=== PATIENT | female | born 1980 | race Caucasian/White ===

== ENCOUNTER → 2022-04-13 14:42 | Outpatient (BNVA) | payer OTHER, SELFPAY | PROVIDERS: PCP Internal Medicine; Visit Provider Nurse Practitioner Family | DX: R20.2 Paresthesia of skin (principal) ==

== ENCOUNTER 2022-04-29 09:20 | Day surgery (SDC) | payer OTHER, SELFPAY ==
[2022-04-29] VITALS (8 sets, daily range): BP systolic 107–115; BP diastolic 55–64; PULSE 68–87; RESP 14–16; TEMP 36.9–37.1; O2SAT 98–99; BMI 31.3
--- NOTE | ~2022-04-29 | FL_ITS ---
PROCEDURE: XR LUMBAR PUNCTURE CLINICAL INFORMATION: Headaches. COMPARISON: None TECHNIQUE: Fluoroscopic-guided lumbar puncture. FINDINGS: Informed consent was obtained from the patient prior to the procedure. During this process, the procedure and potential alternatives were explained, along with the intended outcome and benefits. The risks of the procedure, as well as the risk of not doing the procedure, were discussed. The patient was given the opportunity to ask questions regarding the procedure and appeared competent to make medical decisions. A signed consent form which documents this discussion was placed in the medical record. Using sterile technique from a posterior approach a 22-gauge spinal needle was directed into the thecal space from an L3-L4 approach. There is a traumatic tap with blood within the hub of the needle. The tubes did clear over time, however, the blood in the CSF was evident on the first and then to a lesser extent within the second tube. Patient tolerated the procedure without difficulty. The opening pressure was 19 cm of water. A total of 8 mL of CSF was collected. FLUOROSCOPY TIME: 0.6 minutes DOSE AREA PRODUCT: 2.831 uGy-m2 (microgray-meter squared) FL/FL guided lumbar puncture LP IMPRESSION: Lumbar puncture as described with traumatic tap.
[2022-04-29 10:15] LABS: MANUAL DIFF FLAG NO
[2022-04-29 10:17] LABS: Basophils Percent Auto 0.5 % (0-2); Eosinophils Absolute Auto 0.1 X10*3/uL (0.0-0.4); Eosinophils Percent Auto 1.8 % (0-4); Hematocrit 35.7 % (37.0-47.0); Hemoglobin 12.1 g/dl (12.0-16.0); Imm Gran Abs Auto 0.01 X10*3/uL (0.00-0.03); Imm Gran Pct Auto 0.2 % (0.0-0.4); Lymphocytes Absolute Auto 1.9 X10*3/uL (1.2-4.9); Lymphocytes Percent Auto 32.2 % (20-40); Mean Corpuscular HGB Conc 33.9 g/dl (31.0-35.0); Mean Corpuscular Volume 88.4 fL (80.0-98.0); Monocytes Absolute Auto 0.3 X10*3/uL (0.1-1.2); Monocytes Percent Auto 4.8 % (2-11); Neutrophils Absolute Auto 3.7 x10*3/uL (2.0-8.3); Neutrophils Percent Auto 60.5 % (45-73); Platelet Count 227 X10*3/uL (160-400); Red Blood Count 4.04 X10*6/uL (4.20-5.50); Red Cell Distribution Width 12.2 % (11.0-16.0)
[2022-04-29 10:24] LABS: INTERNATIONAL NORM RATIO 0.9 (0.9-1.1); Prothrombin Time 10.3 SEC (10.0-13.1)
[2022-04-29 10:26] LABS: Partial Thromboplastin Time 26.1 SEC (26.0-36.4)
[2022-04-29] MEDS: Acetaminophen 325 MG TABLET 650 MG PO (12:53)
[2022-04-29 13:16] LABS: CSF Appearance Clear, Colorless; CSF Tube # 3
[2022-04-29 13:49] LABS: Glucose CSF 61 mg/dL; Total Protein CSF 23.5 mg/dL (15-45)
[2022-04-29 14:23] LABS: Appearance CSF HAZY; CSF Tube # 4; Color CSF COLORLESS; White Blood Cell CSF 2 MM*3
[2022-04-29 14:24] LABS: Appearance CSF CLOUDY; CSF Monos 10 %; CSF Tube # 1; Color CSF PINK; Lymphocytes CSF 40 %; Neutrophils CSF 50 %; Red Blood Cell CSF 816 MM*3
[2022-04-29 14:25] LABS: CSF Monos 6 %; Lymphocytes CSF 19 %; Neutrophils CSF 72 %; Red Blood Cell CSF 15862 MM*3; White Blood Cell CSF 5 MM*3
[2022-04-29 14:26] LABS: CSF Other Cells % 3 %
== END 2022-04-29 15:40 | disposition home or self-care (01) ==
PROVIDERS: Nurse Practitioner Family; Radiology Diagnostic Radiology; PCP Internal Medicine; Visit Provider Radiology Diagnostic Radiology
PROC: 009U3ZZ Drainage of Spinal Canal, Percutaneous Approach (ICD-10-PCS; CPT 62270; principal; 2022-04-29 11:00)
DX: G43.009 Migraine without aura, not intractable, without status migrainosus (principal); G44.209 Tension-type headache, unspecified, not intractable; R20.0 Anesthesia of skin; R20.2 Paresthesia of skin; G93.5 Compression of brain; E23.6 Other disorders of pituitary gland; R63.5 Abnormal weight gain; K21.9 Gastro-esophageal reflux disease without esophagitis; Z79.899 Other long term (current) drug therapy; Z86.16 Personal history of COVID-19; Z87.891 Personal history of nicotine dependence
CPT/HCPCS: 36415; 62328; 82945; 84157; 85025; 85610; 85730; 87015; 87070; 87205; 89051

== ENCOUNTER 2022-05-02 11:02 | Emergency (ER) | payer OTHER, SELFPAY ==
--- NOTE | 2022-05-02 11:19 | ED_ITS ---
HPI - Headache General Chief Complaint: General Medical <PAULINE Rivas - Last Filed: 05/02/22 11:25> Stated Complaint: head/neck pain <PAULINE Rivas - Last Filed: 05/02/22 11:25> Time Seen by Provider: 05/02/22 16:17 <PAULINE Rivas - Last Filed: 05/02/22 11:25> Source: patient <Bernard Fowler MD - Last Filed: 05/02/22 20:12> Mode of arrival: ambulatory <Bernard Fowler MD - Last Filed: 05/02/22 20:12> Limitations: no limitations <Bernard Fowler MD - Last Filed: 05/02/22 20:12> History of Present Illness HPI Narrative: Patient with history of migraine and tension headaches status post spinal tap on 04/29 opening pressure was 18 comes here for having headache within few hours of the spinal tap which is different than the previous headaches patient feels headache bilaterally going to the neck especially when sitting or standing within few minutes of that no photophobia sensitivity no fever or chills no cough feels stretching feeling inside the brain. Patient was given Fioricet advised to drink plenty of fluids by neurologist but headache is persistent <Bernard Fowler MD - Last Filed: 05/02/22 20:12> Related Data Home Medications: Home Medications Medication Instructions Recorded Confirmed pantoprazole 40 mg tablet,delayed 40 mg PO DAILY 02/01/22 04/13/22 release Previous Rx's Medication Instructions Recorded lpusygspld-olbmodmhzlxyw-mfvgaioq 1 - 2 tab PO Q4-6H PRN post-lumbar 04/13/22 50 mg-325 mg-40 mg tablet puncture headache 7 days #24 tabs magnesium oxide 400 mg (241.3 mg 400 mg PO BEDTIME 30 days #30 tabs 04/13/22 magnesium) tablet riboflavin (vitamin B2) 400 mg 400 mg PO DAILY 30 days #30 tabs 04/13/22 tablet topiramate 25 mg tablet See Rx Instructions PO .COMPLEX 30 04/13/22 days #120 tabs <PAULINE Rivas - Last Filed: 05/02/22 11:25> Allergies/Adverse Reactions: Allergies Allergy/AdvReac Type Severity Reaction Status Date / Time No Known Allergies [NKA] Allergy Mild NKA Verified 04/29/22 09:47 <PAULINE Rivas - Last Filed: 05/02/22 11:25> Review of Systems Review of Systems: Yes all other systems are reviewed and are negative <Bernard Fowler MD - Last Filed: 05/02/22 20:12> [facility] Past Medical History Medical History: Medical History Alopecia areata Endometriosis GERD (gastroesophageal reflux disease) IBS (irritable bowel syndrome) Microscopic hematuria <PAULINE Rivas - Last Filed: 05/02/22 11:25> Family History Family History: Family History Mother No problems noted. Father CAD (coronary artery disease) HTN (hypertension) Hyperlipidemia Family/Other Diabetes Heart disease Family/Other Heart disease CAD (coronary artery disease) Family/Other Breast cancer Ovarian cancer Cancer of uterine tube Colon cancer <PAULINE Rivas - Last Filed: 05/02/22 11:25> Social History Social History: Social History Alcohol intake: current Alcohol intake frequency: a few times a month Patient Tobacco Use Status: Former Tobacco user Quit Date: 2016 Advance Directives: No Advance Directives Information Provided: Yes <PAULINE Rivas - Last Filed: 05/02/22 11:25> Physical Exam Vital Signs: Vital Signs: Last Vital Signs Temp 96.8 F 05/02/22 14:48 Pulse 67 05/02/22 14:48 Resp 16 05/02/22 14:48 BP 107/49 L 05/02/22 14:48 Pulse Ox 100 05/02/22 14:48 O2 Del Method 05/02/22 14:48 BMI result Body Mass Index 31.3 <PAULINE Rivas - Last Filed: 05/02/22 11:25> Vital Signs: Last Vital Signs Temp 96.8 F 05/02/22 14:48 Pulse 67 05/02/22 14:48 Resp 16 05/02/22 14:48 BP 107/49 L 05/02/22 14:48 Pulse Ox 100 05/02/22 14:48 O2 Del Method 05/02/22 14:48 BMI result Body Mass Index 31.3 <Bernard Fowler MD - Last Filed: 05/02/22 20:12> Appearance: Alert. Oriented X3. moderate distres Eyes: PERRLA, No Nystagmus ENT: Pharynx normal. Oral Mucosa moist Neck: Normal inspection. Neck supple. No neck rigidity CVS: Normal heart rate and rhythm. Pulses normal. Respiratory: No respiratory distress. Equal air entry bilateral, no wheezing/rales/rhonchi Abdomen: Soft and nontender. Bowel sounds are present, Skin: Skin warm and dry. Normal skin color. Normal skin turgor. Extremities: No lower extremity edema. No calf tenderness Neuro: Oriented X 3. No motor deficit. No sensory deficit.No cerebellar signs , cranial nerves II-XII intact <Bernard Fowler MD - Last Filed: 05/02/22 20:12> Course Course Course Narrative: RME 11:20AM - 42yoF c PMHx of migraine headaches presenting to the ED c c/o of a throbbing headaches radiating to neck arm since worse today after she had an LP by Dr. Armstrong. When she lays flat the headache is worsening. Therefore she lays on her side. Reports does not feel like normal migraine headaches. Was sent here by Neurologist for blood patch. Associated lightheadedness. Denies fevers, changes in vision, paresthesias, CP, SOB, N/V, Rashes, falls or other with similar symptoms. Plan: Labs ordered along with COVID/RSV/flu swab. Vital signs are stable patient has a normal steady gait. Patient will be sent back to the waiting room to be evaluated in the ED. <PAULINE Rivas - Last Filed: 05/02/22 11:25> Medications Administered Discontinued Medications Generic Name Dose Route Start Last Admin Trade Name Freq PRN Reason Stop Dose Admin Sodium Chloride 1,000 mls @ 999 mls/hr 05/02/22 16:25 05/02/22 16:37 Ns IV 05/02/22 17:25 999 mls/hr .Q1H1M ONE Administration Ketorolac Tromethamine 30 mg 05/02/22 16:26 05/02/22 16:37 Ketorolac Tromethamine 30 Mg/Ml Vial IVPUSH 05/02/22 16:27 30 mg ONCE ONE Administration <PAULINE Rivas - Last Filed: 05/02/22 11:25> Medications Administered Discontinued Medications Generic Name Dose Route Start Last Admin Trade Name Bubba PRN Reason Stop Dose Admin Sodium Chloride 1,000 mls @ 999 mls/hr 05/02/22 16:25 05/02/22 16:37 Ns IV 05/02/22 17:25 999 mls/hr .Q1H1M ONE Administration Ketorolac Tromethamine 30 mg 05/02/22 16:26 05/02/22 16:37 Ketorolac Tromethamine 30 Mg/Ml Vial IVPUSH 05/02/22 16:27 30 mg ONCE ONE Administration <Bernard Fowler MD - Last Filed: 05/02/22 20:12> Medical Decision Making Medical Decision Making MDM Narrative: Patient feeling much better after a L of IV saline bolus and Toradol anesthesiologists came and discussed with the patient , patient would like to wait another 2 days before the blood patch patient ambulate in the ER without significant distress <Bernard Fowler MD - Last Filed: 05/02/22 20:12> Lab Data [facility] Lab Attestation statement: I reviewed the patient's lab results. <Bernard Fowler MD - Last Filed: 05/02/22 20:12> Result Diagrams: 05/02/22 12:53 05/02/22 12:53 <PAULINE Rivas - Last Filed: 05/02/22 11:25> Labs: Lab Results 05/02/22 05/02/22 05/02/22 Range/Units 12:49 12:52 12:53 WBC 6.8 (4.8-10.8) X10*3/uL RBC 4.40 (4.20-5.50) X10*6/uL Hgb 13.1 (12.0-16.0) g/dl Hct 39.1 (37.0-47.0) % MCV 88.9 (80.0-98.0) fL MCH 29.8 (27.0-33.0) pg MCHC 33.5 (31.0-35.0) g/dl RDW 12.1 (11.0-16.0) % Plt Count 252 (160-400) X10*3/uL MPV 9.9 (9.4-12.3) fL Immature Gran % (Auto) 0.1 (0.0-0.4) % Neut % (Auto) 58.2 (45-73) % Lymph % (Auto) 34.6 (20-40) % [place] % (Auto) 5.7 (2-11) % Eos % (Auto) 1.3 (0-4) % Baso % (Auto) 0.1 (0-2) % Lymph # (Auto) 2.4 (1.2-4.9) X10*3/uL [place] # (Auto) 0.4 (0.1-1.2) X10*3/uL Eos # (Auto) 0.1 (0.0-0.4) X10*3/uL Baso # (Auto) 0.0 (0.0-0.2) X10*3/uL Abs Immat Gran (auto) 0.01 (0.00-0.03) X10*3/uL Absolute Neuts (auto) 4.0 (2.0-8.3) x10*3/uL Absolute Nucleated RBC 0.000 (0.0-0.012) X10*3/uL Nucleated RBC % (auto) 0.0 (0.0-0.2) /100WBC ESR (0-20) MM/HR PT (10.0-13.1) SEC INR (0.9-1.1) Sodium (135-145) mmol/L Potassium (3.3-5.1) mmol/L Chloride (96-108) mmol/L Carbon Dioxide (22-29) mmol/L Anion Gap (12-20) BUN (9-16) mg/dL Creatinine (0.5-1.4) mg/dL Estim Creat Clear Calc Estimated GFR Random Glucose (60-115) mg/dL Calcium (8.4-10.2) mg/dL Magnesium (1.6-2.6) mg/dL Total Bilirubin (0.0-1.0) mg/dL AST (5-31) U/L ALT (0-31) U/L Alkaline Phosphatase (39-117) U/L C-Reactive Protein (< or = 0.50) mg/dL Total Protein (6.5-8.0) g/dL Albumin (3.5-5.0) g/dL Beta HCG, Quant < 2 mIU/mL Influenza Type A (PCR) NEGATIVE (Negative) Influenza Type B (PCR) NEGATIVE (Negative) RSV RNA Qual (PCR) NEGATIVE (Negative) SARS-CoV-2 RNA (RT-PCR) NEGATIVE (Negative) 05/02/22 05/02/22 05/02/22 Range/Units 12:53 12:53 12:53 WBC (4.8-10.8) X10*3/uL RBC (4.20-5.50) X10*6/uL Hgb (12.0-16.0) g/dl Hct (37.0-47.0) % MCV (80.0-98.0) fL MCH (27.0-33.0) pg MCHC (31.0-35.0) g/dl RDW (11.0-16.0) % Plt Count (160-400) X10*3/uL MPV (9.4-12.3) fL Immature Gran % (Auto) (0.0-0.4) % Neut % (Auto) (45-73) % Lymph % (Auto) (20-40) % [place] % (Auto) (2-11) % Eos % (Auto) (0-4) % Baso % (Auto) (0-2) % Lymph # (Auto) (1.2-4.9) X10*3/uL [place] # (Auto) (0.1-1.2) X10*3/uL Eos # (Auto) (0.0-0.4) X10*3/uL Baso # (Auto) (0.0-0.2) X10*3/uL Abs Immat Gran (auto) (0.00-0.03) X10*3/uL Absolute Neuts (auto) (2.0-8.3) x10*3/uL Absolute Nucleated RBC (0.0-0.012) X10*3/uL Nucleated RBC % (auto) (0.0-0.2) /100WBC ESR 8 (0-20) MM/HR PT 11.0 (10.0-13.1) SEC INR 1.0 (0.9-1.1) Sodium 141 (135-145) mmol/L Potassium 4.1 (3.3-5.1) mmol/L Chloride 110 H (96-108) mmol/L Carbon Dioxide 25 (22-29) mmol/L Anion Gap 10 L (12-20) BUN 13 (9-16) mg/dL Creatinine 0.76 (0.5-1.4) mg/dL Estim Creat Clear Calc 83.9 Estimated GFR > 60 Random Glucose 91 (60-115) mg/dL Calcium 9.0 (8.4-10.2) mg/dL Magnesium 1.9 (1.6-2.6) mg/dL Total Bilirubin 0.4 (0.0-1.0) mg/dL AST 25 (5-31) U/L ALT 28 (0-31) U/L Alkaline Phosphatase 87 (39-117) U/L C-Reactive Protein 0.20 (< or = 0.50) mg/dL Total Protein 6.9 (6.5-8.0) g/dL Albumin 3.7 (3.5-5.0) g/dL Beta HCG, Quant mIU/mL Influenza Type A (PCR) (Negative) Influenza Type B (PCR) (Negative) RSV RNA Qual (PCR) (Negative) SARS-CoV-2 RNA (RT-PCR) (Negative) <PAULINE Rivas - Last Filed: 05/02/22 11:25> Lab Results 05/02/22 05/02/22 05/02/22 Range/Units 12:49 12:52 12:53 WBC 6.8 (4.8-10.8) X10*3/uL RBC 4.40 (4.20-5.50) X10*6/uL Hgb 13.1 (12.0-16.0) g/dl Hct 39.1 (37.0-47.0) % MCV 88.9 (80.0-98.0) fL MCH 29.8 (27.0-33.0) pg MCHC 33.5 (31.0-35.0) g/dl RDW 12.1 (11.0-16.0) % Plt Count 252 (160-400) X10*3/uL MPV 9.9 (9.4-12.3) fL Immature Gran % (Auto) 0.1 (0.0-0.4) % Neut % (Auto) 58.2 (45-73) % Lymph % (Auto) 34.6 (20-40) % [place] % (Auto) 5.7 (2-11) % Eos % (Auto) 1.3 (0-4) % Baso % (Auto) 0.1 (0-2) % Lymph # (Auto) 2.4 (1.2-4.9) X10*3/uL [place] # (Auto) 0.4 (0.1-1.2) X10*3/uL Eos # (Auto) 0.1 (0.0-0.4) X10*3/uL Baso # (Auto) 0.0 (0.0-0.2) X10*3/uL Abs Immat Gran (auto) 0.01 (0.00-0.03) X10*3/uL Absolute Neuts (auto) 4.0 (2.0-8.3) x10*3/uL Absolute Nucleated RBC 0.000 (0.0-0.012) X10*3/uL Nucleated RBC % (auto) 0.0 (0.0-0.2) /100WBC ESR (0-20) MM/HR PT (10.0-13.1) SEC INR (0.9-1.1) Sodium (135-145) mmol/L Potassium (3.3-5.1) mmol/L Chloride (96-108) mmol/L Carbon Dioxide (22-29) mmol/L Anion Gap (12-20) BUN (9-16) mg/dL Creatinine (0.5-1.4) mg/dL Estim Creat Clear Calc Estimated GFR Random Glucose (60-115) mg/dL Calcium (8.4-10.2) mg/dL Magnesium (1.6-2.6) mg/dL Total Bilirubin (0.0-1.0) mg/dL AST (5-31) U/L ALT (0-31) U/L Alkaline Phosphatase (39-117) U/L C-Reactive Protein (< or = 0.50) mg/dL Total Protein (6.5-8.0) g/dL Albumin (3.5-5.0) g/dL Beta HCG, Quant < 2 mIU/mL Influenza Type A (PCR) NEGATIVE (Negative) Influenza Type B (PCR) NEGATIVE (Negative) RSV RNA Qual (PCR) NEGATIVE (Negative) SARS-CoV-2 RNA (RT-PCR) NEGATIVE (Negative) 05/02/22 05/02/22 05/02/22 Range/Units 12:53 12:53 12:53 WBC (4.8-10.8) X10*3/uL RBC (4.20-5.50) X10*6/uL Hgb (12.0-16.0) g/dl Hct (37.0-47.0) % MCV (80.0-98.0) fL MCH (27.0-33.0) pg MCHC (31.0-35.0) g/dl RDW (11.0-16.0) % Plt Count (160-400) X10*3/uL MPV (9.4-12.3) fL Immature Gran % (Auto) (0.0-0.4) % Neut % (Auto) (45-73) % Lymph % (Auto) (20-40) % [place] % (Auto) (2-11) % Eos % (Auto) (0-4) % Baso % (Auto) (0-2) % Lymph # (Auto) (1.2-4.9) X10*3/uL [place] # (Auto) (0.1-1.2) X10*3/uL Eos # (Auto) (0.0-0.4) X10*3/uL Baso # (Auto) (0.0-0.2) X10*3/uL Abs Immat Gran (auto) (0.00-0.03) X10*3/uL Absolute Neuts (auto) (2.0-8.3) x10*3/uL Absolute Nucleated RBC (0.0-0.012) X10*3/uL Nucleated RBC % (auto) (0.0-0.2) /100WBC ESR 8 (0-20) MM/HR PT 11.0 (10.0-13.1) SEC INR 1.0 (0.9-1.1) Sodium 141 (135-145) mmol/L Potassium 4.1 (3.3-5.1) mmol/L Chloride 110 H (96-108) mmol/L Carbon Dioxide 25 (22-29) mmol/L Anion Gap 10 L (12-20) BUN 13 (9-16) mg/dL Creatinine 0.76 (0.5-1.4) mg/dL Estim Creat Clear Calc 83.9 Estimated GFR > 60 Random Glucose 91 (60-115) mg/dL Calcium 9.0 (8.4-10.2) mg/dL Magnesium 1.9 (1.6-2.6) mg/dL Total Bilirubin 0.4 (0.0-1.0) mg/dL AST 25 (5-31) U/L ALT 28 (0-31) U/L Alkaline Phosphatase 87 (39-117) U/L C-Reactive Protein 0.20 (< or = 0.50) mg/dL Total Protein 6.9 (6.5-8.0) g/dL Albumin 3.7 (3.5-5.0) g/dL Beta HCG, Quant mIU/mL Influenza Type A (PCR) (Negative) Influenza Type B (PCR) (Negative) RSV RNA Qual (PCR) (Negative) SARS-CoV-2 RNA (RT-PCR) (Negative) <Bernard Fowler MD - Last Filed: 05/02/22 20:12> Discharge Plan Discharge Clinical Impression: Spinal headache <PAULINE Rivas - Last Filed: 05/02/22 11:25> Patient Disposition: Home, Self-Care <PAULINE Rivas - Last Filed: 05/02/22 11:25> Instructions: Epidural Blood Patch (DC), General Headache (ED) <PAULINE Rivas - Last Filed: 05/02/22 11:25> Additional Instructions: Drink plenty of fluids Continue to take Fioricet tablet Report to the ER if headache continues <PAULINE Rivas - Last Filed: 05/02/22 11:25> Prescriptions: No Action pantoprazole 40 mg tablet,delayed release (DR/EC) 40 mg PO DAILY magnesium oxide 400 mg (241.3 mg magnesium) tablet 400 mg PO BEDTIME 30 Days Qty: 30 6RF Rx Instructions: may hold for loose stools riboflavin (vitamin B2) 400 mg tablet 400 mg PO DAILY 30 Days Qty: 30 6RF topiramate 25 mg tablet See Rx Instructions PO .COMPLEX 30 Days Qty: 120 3RF Rx Instructions: 1 tab qhs x's 1 wk, then 2 tabs qhs x's 1 wk, then 1 tab qam and 2 tabs qhs x's 1 week, then 2 tabs bid. orally .; [id number]-dhnbzycwyrzvu-mwxx 50-325-40 mg tablet 1 - 2 tab PO Q4-6H PRN (Reason: post-lumbar puncture headache) 7 Days Qty: 24 1RF Rx Instructions: max 4 tabs per day or 8 tabs per week <PAULINE Rivas - Last Filed: 05/02/22 11:25> Stand Alone Forms: Work/School Release <PAULINE Rivas - Last Filed: 05/02/22 11:25> Interventions: ED Discharge Assessment Last Done: 05/02/22 18:17 <PAULINE Rivas - Last Filed: 05/02/22 11:25> Discharge Date/Time: 05/02/22 18:19 <PAULINE Rivas - Last Filed: 05/02/22 11:25>
[2022-05-02 11:20] VITALS: BP 132/86; PULSE 74; RESP 16; TEMP 36.4; O2SAT 100; BMI 31.3
[2022-05-02 12:57] LABS: MANUAL DIFF FLAG NO
[2022-05-02 12:58] LABS: Basophils Percent Auto 0.1 % (0-2); Eosinophils Absolute Auto 0.1 X10*3/uL (0.0-0.4); Eosinophils Percent Auto 1.3 % (0-4); Hematocrit 39.1 % (37.0-47.0); Hemoglobin 13.1 g/dl (12.0-16.0); Imm Gran Abs Auto 0.01 X10*3/uL (0.00-0.03); Imm Gran Pct Auto 0.1 % (0.0-0.4); Lymphocytes Absolute Auto 2.4 X10*3/uL (1.2-4.9); Lymphocytes Percent Auto 34.6 % (20-40); Mean Corpuscular HGB Conc 33.5 g/dl (31.0-35.0); Mean Corpuscular Hemoglobin 29.8 pg (27.0-33.0); Mean Corpuscular Volume 88.9 fL (80.0-98.0); Mean Platelet Volume 9.9 fL (9.4-12.3); Monocytes Absolute Auto 0.4 X10*3/uL (0.1-1.2); Monocytes Percent Auto 5.7 % (2-11); Neutrophils Percent Auto 58.2 % (45-73); Platelet Count 252 X10*3/uL (160-400); Red Cell Distribution Width 12.1 % (11.0-16.0); White Blood Count 6.8 X10*3/uL (4.8-10.8)
[2022-05-02 13:15] LABS: Alanine Aminotransferase 28 U/L (0-31); Albumin Level 3.7 g/dL (3.5-5.0); Alkaline Phosphatase 87 U/L (39-117); Anion Gap 10 (12-20); Aspartate Amino Transferase 25 U/L (5-31); Bilirubin Total 0.4 mg/dL (0.0-1.0); Blood Urea Nitrogen 13 mg/dL (9-16); Carbon Dioxide 25 mmol/L (22-29); Chloride 110 mmol/L (96-108); Creatinine Clr Calc Pharmacy 83.9; Estimated Glomerular Filt Rate > 60; Glucose Random 91 mg/dL (60-115); Magnesium 1.9 mg/dL (1.6-2.6); Potassium 4.1 mmol/L (3.3-5.1); Sodium 141 mmol/L (135-145); Total Protein 6.9 g/dL (6.5-8.0)
[2022-05-02 13:34] LABS: Influenza A PCR NEGATIVE (Negative); Influenza B PCR NEGATIVE (Negative); Resp Syncy Virus RNA Qual PCR NEGATIVE (Negative); SARS COV2 PCR INHOUSE NEGATIVE (Negative)
[2022-05-02 13:37] LABS: HCG Quantitative < 2 mIU/mL
[2022-05-02 13:57] LABS: Erythrocyte Sedimentation Rate 8 MM/HR (0-20)
[2022-05-02 14:48] VITALS: BP 107/49; PULSE 67; RESP 16; TEMP 36; O2SAT 100
[2022-05-02] MEDS: 0.9 % Sodium Chloride 1,000 ML 999 ML IV (16:37)
[2022-05-02] MEDS: Ketorolac Tromethamine 30 MG/ML VIAL IVPUSH (16:37)
== END 2022-05-02 18:19 | disposition home or self-care (01) ==
PROVIDERS: Physician Assistant Medical; Emergency Provider Internal Medicine; PCP Internal Medicine
DX: M54.2 Cervicalgia (principal); R51.9 Headache, unspecified; Z20.822 Contact with and (suspected) exposure to COVID-19; Z20.828 Contact with and (suspected) exposure to other viral communicable diseases; Z79.899 Other long term (current) drug therapy
CPT/HCPCS: 0241U; 36415; 80053; 83735; 84702; 85025; 85610; 85652; 86140; 96361; 96374; 99284; J1885

== ENCOUNTER 2022-12-28 13:46 | Emergency (ER) | payer OTHER, SELFPAY ==
--- NOTE | ~2022-12-28 | XR_ITS ---
EXAMINATION: XR CHEST CLINICAL INFORMATION: Chest pain COMPARISON: None available. TECHNIQUE: Frontal view of the chest was obtained. FINDINGS: Lungs are well-inflated and clear. Trachea is midline in position. No interstitial disease, consolidation or mass. No pleural effusion or pneumothorax. Cardiac silhouette and pulmonary vessels are normal in size. The mediastinum and low have normal contour. Mild dextroscoliosis of the thoracic spine. Otherwise, the visualized bones and upper abdomen are unremarkable. XR/XR chest 1V IMPRESSION: No acute cardiopulmonary abnormality.
--- NOTE | 2022-12-28 13:47 | ECG_ITS ---
Test Reason : CHEST PAIN Blood Pressure : / mmHG Vent. Rate : 081 BPM Atrial Rate : 081 BPM P-R Int : 136 ms QRS Dur : 082 ms QT Int : 366 ms P-R-T Axes : 000 013 008 degrees QTc Int : 425 ms Normal sinus rhythm Possible Inferior infarct , age undetermined Abnormal ECG No previous ECGs available Referred By: González Barnes Electronically Signed By:NICK KAUFMAN
[2022-12-28 14:09] VITALS: BP 118/76; PULSE 81; RESP 18; TEMP 36.8; O2SAT 99; BMI 30.3
--- NOTE | 2022-12-28 14:09 | ED.GENADULT ---
HPI - General Adult General Chief complaint: Chest Pain Stated complaint: Chest pain/SOB Time Seen by Provider: 12/28/22 20:32 Source: patient Mode of arrival: ambulatory Limitations: no limitations History of Present Illness HPI narrative: patient with no known coronary artery disease ex-smoker no history of hypertension or diabetes no history of sudden family at young age comes here for 4- 5 days of left-sided chest pain which is feel like pressure constant get worse or movements and palpation patient denies any depression or stress Related Data Home Medications Medication Instructions Recorded Confirmed pantoprazole 40 mg tablet,delayed 40 mg PO DAILY 02/01/22 04/13/22 release Previous Rx's Medication Instructions Recorded magnesium oxide 400 mg (241.3 mg 400 mg PO BEDTIME 30 days #30 tabs 04/13/22 magnesium) tablet riboflavin (vitamin B2) 400 mg 400 mg PO DAILY 30 days #30 tabs 04/13/22 tablet topiramate 25 mg tablet See Rx Instructions PO .COMPLEX 30 04/13/22 days #120 tabs uvtphmwopy-zepgatezkfupq-hxggbbmf 1 - 2 tab PO Q4-6H PRN post-lumbar 05/05/22 50 mg-325 mg-40 mg tablet puncture headache 7 days #24 tabs ibuprofen 600 mg tablet 600 mg PO Q6H PRN fever or pain 12/28/22 #30 tabs Allergies Allergy/AdvReac Type Severity Reaction Status Date / Time No Known Allergies [NKA] Allergy Mild NKA Verified 12/28/22 14:09 Review of Systems Review of Systems: Yes all other systems are reviewed and are negative [facility] Past Medical History Medical History Alopecia areata Endometriosis GERD (gastroesophageal reflux disease) IBS (irritable bowel syndrome) Microscopic hematuria Family History Family History Mother No problems noted. Father CAD (coronary artery disease) HTN (hypertension) Hyperlipidemia Family/Other Diabetes Heart disease Family/Other Heart disease CAD (coronary artery disease) Family/Other Breast cancer Ovarian cancer Cancer of uterine tube Colon cancer Social History Social History Alcohol intake: current Alcohol intake frequency: holidays/special occasions only Patient Tobacco Use Status: Former Tobacco user Quit Date: 2016 Smoked in Last 30 Days: No Use of substances other than those prescribed or required for medical reasons: No Advance Directives: No Advance Directives Information Provided: Yes Patient : No Physical Exam ED Vital Signs: Vital Signs - 24 hr 12/28/22 14:09 12/28/22 20:19 Temperature 98.2 F 97.8 F Pulse Rate 81 65 Respiratory Rate 18 20 Blood Pressure 118/76 140/77 H Pulse Oximetry 99 99 Oxygen Delivery Method Room Air Room Air BMI result Body Mass Index 30.3 Appearance: Alert. Oriented X3. No acute distress. Eyes: PERRLA, No Nystagmus ENT: Pharynx normal. Oral Mucosa moist Neck: Normal inspection. Neck supple. CVS: Normal heart rate and rhythm. Pulses normal. left chest wall tenderness++ Respiratory: No respiratory distress. Equal air entry bilateral, no wheezing/rales/rhonchi Abdomen: Soft and nontender. Bowel sounds are present, no mass palpable, no CVA tenderness Skin: Skin warm and dry. Normal skin color. Normal skin turgor. Extremities: No lower extremity edema. No calf tenderness Neuro: Oriented X 3. No motor deficit. No sensory deficit.No cerebellar signs , cranial nerves II-XII intact Course Course Course Narrative: This is an RME: Additional HPI, ROS, PE not included below will be deferred to primary provider. 42 year old female presenting with 4-5 days of chest pain, nausea, heaviness in the chest. Worse with movement or with leaning over. Plan: labs, ekg Medical Decision Making Medical Decision Making [facility] Narrative: atypical chest pain with no risk factor discharge patient home advised to follow with PCP heart score is 0 Differential Diagnosis Differential Diagnoses: The differential diagnosis associated with the presentation includes ACS / musculoskeletal chest pain /PE Lab Data [facility] Lab Attestation statement: I reviewed the patient's lab results. 12/28/22 14:06 12/28/22 14:06 Labs: Lab Results 12/28/22 12/28/22 12/28/22 Range/Units 14:06 14:06 14:06 WBC 8.4 (4.8-10.8) X10*3/uL RBC 4.35 (4.20-5.50) X10*6/uL Hgb 13.1 (12.0-16.0) g/dl Hct 36.9 L (37.0-47.0) % MCV 84.8 (80.0-98.0) fL MCH 30.1 (27.0-33.0) pg MCHC 35.5 H (31.0-35.0) g/dl RDW 12.2 (11.0-16.0) % Plt Count 258 (160-400) X10*3/uL MPV 10.1 (9.4-12.3) fL Immature Gran % (Auto) 0.4 (0.0-0.4) % Neut % (Auto) 62.7 (45-73) % Lymph % (Auto) 30.6 (20-40) % [place]osey % (Auto) 5.0 (2-11) % Eos % (Auto) 1.2 (0-4) % Baso % (Auto) 0.1 (0-2) % Lymph # (Auto) 2.6 (1.2-4.9) X10*3/uL Posey # (Auto) 0.4 (0.1-1.2) X10*3/uL Eos # (Auto) 0.1 (0.0-0.4) X10*3/uL Baso # (Auto) 0.0 (0.0-0.2) X10*3/uL Abs Immat Gran (auto) 0.03 (0.00-0.03) X10*3/uL Absolute Neuts (auto) 5.3 (2.0-8.3) x10*3/uL Absolute Nucleated RBC 0.000 (0.0-0.012) X10*3/uL Nucleated RBC % (auto) 0.0 (0.0-0.2) /100WBC Sodium 139 (135-145) mmol/L Potassium 3.5 (3.3-5.1) mmol/L Chloride 109 H (96-108) mmol/L Carbon Dioxide 24 (22-29) mmol/L Anion Gap 10 L (12-20) BUN 13 (9-16) mg/dL Creatinine 0.90 (0.5-1.4) mg/dL Estim Creat Clear Calc 69.6 Estimated GFR > 60 Random Glucose 110 (60-115) mg/dL Calcium 8.9 (8.4-10.2) mg/dL Magnesium 1.8 (1.6-2.6) mg/dL Total Bilirubin 0.3 (0.0-1.0) mg/dL AST 18 (5-31) U/L ALT 18 (0-31) U/L Alkaline Phosphatase 88 (39-117) U/L Troponin I High Sens < 2.7 (<3.5-17.0) ng/L B-Natriuretic Peptide (<100) pg/mL Total Protein 6.9 (6.5-8.0) g/dL Albumin 3.6 (3.5-5.0) g/dL Urine Color Urine Appearance Urine pH (5.0-9.0) Ur Specific [place] (1.005-1.025) Urine Protein (Neg-Trace) mg/dL Urine Glucose (UA) (Negative) mg/dL Urine Ketones (Negative) mg/dL Urine Blood (Negative) Urine Nitrite (Negative) Ur Leukocyte Esterase (Negative) Urine RBC (0-2) /HPF Urine WBC (0-5) /HPF Ur Squamous Epith Cells (0-2) /HPF Urine Bacteria (None Seen) Hyaline Casts (0-2) /LPF 12/28/22 12/28/22 Range/Units 14:06 20:35 WBC (4.8-10.8) X10*3/uL RBC (4.20-5.50) X10*6/uL Hgb (12.0-16.0) g/dl Hct (37.0-47.0) % MCV (80.0-98.0) fL MCH (27.0-33.0) pg MCHC (31.0-35.0) g/dl RDW (11.0-16.0) % Plt Count (160-400) X10*3/uL MPV (9.4-12.3) fL Immature Gran % (Auto) (0.0-0.4) % Neut % (Auto) (45-73) % Lymph % (Auto) (20-40) % Posey % (Auto) (2-11) % Eos % (Auto) (0-4) % Baso % (Auto) (0-2) % Lymph # (Auto) (1.2-4.9) X10*3/uL [place] # (Auto) (0.1-1.2) X10*3/uL Eos # (Auto) (0.0-0.4) X10*3/uL Baso # (Auto) (0.0-0.2) X10*3/uL Abs Immat Gran (auto) (0.00-0.03) X10*3/uL Absolute Neuts (auto) (2.0-8.3) x10*3/uL Absolute Nucleated RBC (0.0-0.012) X10*3/uL Nucleated RBC % (auto) (0.0-0.2) /100WBC Sodium (135-145) mmol/L Potassium (3.3-5.1) mmol/L Chloride (96-108) mmol/L Carbon Dioxide (22-29) mmol/L Anion Gap (12-20) BUN (9-16) mg/dL Creatinine (0.5-1.4) mg/dL Estim Creat Clear Calc Estimated GFR Random Glucose (60-115) mg/dL Calcium (8.4-10.2) mg/dL Magnesium (1.6-2.6) mg/dL Total Bilirubin (0.0-1.0) mg/dL AST (5-31) U/L ALT (0-31) U/L Alkaline Phosphatase (39-117) U/L Troponin I High Sens (<3.5-17.0) ng/L B-Natriuretic Peptide < 10 (<100) pg/mL Total Protein (6.5-8.0) g/dL Albumin (3.5-5.0) g/dL Urine Color Yellow Urine Appearance Clear Urine pH 6.0 (5.0-9.0) Ur Specific [place] 1.025 (1.005-1.025) Urine Protein Negative (Neg-Trace) mg/dL Urine Glucose (UA) Negative (Negative) mg/dL Urine Ketones Negative (Negative) mg/dL Urine Blood Moderate (2+) H (Negative) Urine Nitrite Positive H (Negative) Ur Leukocyte Esterase Small (1+) H (Negative) Urine RBC 6-10 H (0-2) /HPF Urine WBC 21-50 H (0-5) /HPF Ur Squamous Epith Cells 3-5 (0-2) /HPF Urine Bacteria 4+ (None Seen) Hyaline Casts 0-2 (0-2) /LPF Discharge Plan Discharge Clinical Impression: Chest pain Patient Disposition: Home, Self-Care Instructions: Chest Pain (ED) Additional Instructions: your pain is unlikely cardiac take ibuprofen 600 mg every 6 hours as needed follow-up with PCP for further evaluation including stress test Prescriptions: New ibuprofen 600 mg tablet 600 mg PO Q6H PRN (Reason: fever or pain) Qty: 30 0RF No Action ydepmalfdq-wmcxbkbmnnltk-gels 50-325-40 mg tablet 1 - 2 tab PO Q4-6H PRN (Reason: post-lumbar puncture headache) 7 Days Qty: 24 1RF Rx Instructions: max 4 tabs per day or 8 tabs per week pantoprazole 40 mg tablet,delayed release (DR/EC) 40 mg PO DAILY magnesium oxide 400 mg (241.3 mg magnesium) tablet 400 mg PO BEDTIME 30 Days Qty: 30 6RF Rx Instructions: may hold for loose stools riboflavin (vitamin B2) 400 mg tablet 400 mg PO DAILY 30 Days Qty: 30 6RF topiramate 25 mg tablet See Rx Instructions PO .COMPLEX 30 Days Qty: 120 3RF Rx Instructions: 1 tab qhs x's 1 wk, then 2 tabs qhs x's 1 wk, then 1 tab qam and 2 tabs qhs x's 1 week, then 2 tabs bid. orally .; Interventions: ED Discharge Assessment Last Done: 12/28/22 21:15 Discharge Date/Time: 12/28/22 21:16
[2022-12-28 14:25] LABS: MANUAL DIFF FLAG NO
[2022-12-28 14:26] LABS: Basophils Percent Auto 0.1 % (0-2); Eosinophils Absolute Auto 0.1 X10*3/uL (0.0-0.4); Eosinophils Percent Auto 1.2 % (0-4); Hematocrit 36.9 % (37.0-47.0); Hemoglobin 13.1 g/dl (12.0-16.0); Imm Gran Abs Auto 0.03 X10*3/uL (0.00-0.03); Imm Gran Pct Auto 0.4 % (0.0-0.4); Lymphocytes Absolute Auto 2.6 X10*3/uL (1.2-4.9); Lymphocytes Percent Auto 30.6 % (20-40); Mean Corpuscular HGB Conc 35.5 g/dl (31.0-35.0); Mean Corpuscular Hemoglobin 30.1 pg (27.0-33.0); Mean Corpuscular Volume 84.8 fL (80.0-98.0); Mean Platelet Volume 10.1 fL (9.4-12.3); Monocytes Absolute Auto 0.4 X10*3/uL (0.1-1.2); Neutrophils Absolute Auto 5.3 x10*3/uL (2.0-8.3); Neutrophils Percent Auto 62.7 % (45-73); Platelet Count 258 X10*3/uL (160-400); Red Blood Count 4.35 X10*6/uL (4.20-5.50); Red Cell Distribution Width 12.2 % (11.0-16.0); White Blood Count 8.4 X10*3/uL (4.8-10.8)
[2022-12-28 14:44] LABS: Alanine Aminotransferase 18 U/L (0-31); Albumin Level 3.6 g/dL (3.5-5.0); Alkaline Phosphatase 88 U/L (39-117); Anion Gap 10 (12-20); Aspartate Amino Transferase 18 U/L (5-31); Bilirubin Total 0.3 mg/dL (0.0-1.0); Blood Urea Nitrogen 13 mg/dL (9-16); Calcium 8.9 mg/dL (8.4-10.2); Carbon Dioxide 24 mmol/L (22-29); Chloride 109 mmol/L (96-108); Creatinine Clr Calc Pharmacy 69.6; Estimated Glomerular Filt Rate > 60; Glucose Random 110 mg/dL (60-115); Magnesium 1.8 mg/dL (1.6-2.6); Potassium 3.5 mmol/L (3.3-5.1); Sodium 139 mmol/L (135-145); Total Protein 6.9 g/dL (6.5-8.0)
[2022-12-28 14:50] LABS: B Type Natriuretic Peptide < 10 pg/mL (<100)
[2022-12-28 14:58] LABS: Troponin-I High Sensitivity < 2.7 ng/L (<3.5-17.0)
[2022-12-28 20:19] VITALS: BP 140/77; PULSE 65; RESP 20; TEMP 36.6; O2SAT 99
[2022-12-28 20:47] LABS: Appearance Urine Clear; Color Urine Yellow; Glucose Urine UA Negative (Negative); Leukocyte Esterase Urine Small (1+) (Negative); Nitrite Urine Positive (Negative); Specific Gravity - Urine 1.025 (1.005-1.025); UMIC TRIGGER UACC YES; Urine Blood Moderate (2+) (Negative); Urine Ketones Negative (Negative); Urine Protein Negative (Neg-Trace)
[2022-12-28 21:00] LABS: Bacteria Urine 4+ (None Seen); Hyaline Casts Urine 0-2 /LPF (0-2); UACC Culture Trigger YES; WBC Urine 21-50 /HPF (0-5)
--- NOTE | 2022-12-28 21:12 | PC.NURSE ---
pt ambulatory at discharge. pt calm and cooperative. pt family at bedside. pt provided with discharge packet. pt verbalized understanding of discharge plan
== END 2022-12-28 21:16 | disposition home or self-care (01) ==
PROVIDERS: Physician Assistant; Emergency Provider Internal Medicine; PCP Internal Medicine
DX: R07.89 Other chest pain (principal); R06.02 Shortness of breath; Z87.891 Personal history of nicotine dependence; Z79.899 Other long term (current) drug therapy
CPT/HCPCS: 36415; 71045; 80053; 81001; 83735; 83880; 84484; 85025; 87086; 93005; 99283; 99284

== ENCOUNTER 2023-06-09 07:54 | Outpatient (AMB) | payer OTHER, SELFPAY ==
--- NOTE | 2023-06-09 07:58 | MHC.OFFVIS ---
Intake Vital Signs 06/09/23 08:00 Height 4 ft 11 in Weight 180 lb BMI 36.4 BP 128/74 Blood Pressure Location Rt brachial Position Sitting Pulse 73 Pulse Source Pulse Oximeter Pulse Oximetry (%) 98 Oxygen Delivery Method Room Air Intake Visit Reasons: Follow [id number] Intake Note: Patient presents for follow up migraines. i would say they're a little better I still get random ones,Im having some brain fog and memory issues. Allergies No Known Allergies [NKA] Allergy (Mild, Verified 06/09/23 08:07) NKA Medication List - Last Reconciled 06/09/23 by Pinky Tejada, LES tdwumneqnb-ubnqrbindiugf-vjkb 50-325-40 mg 1 - 2 tabs PO Q4-6H PRN 7 days ibuprofen 600 mg PO Q6H PRN magnesium oxide 400 mg PO BEDTIME 30 days pantoprazole 40 mg PO DAILY riboflavin (vitamin B2) 400 mg PO DAILY 30 days topiramate 1 tab qhs x's 1 wk, then 2 tabs qhs x's 1 wk, then 1 tab qam and 2 tabs qhs x's 1 week, then 2 tabs bid. orally .; 30 days HPI HPI Comments History of Present Illness Details 43-yr-old female presents for f/u visit. Pt last seen in Mar 2022. Since the last visit, pt underwent LP for OP and CSF, which were normal w/ OP 19 cmH2O. Pt reports she continues to have frequent headaches, which are not lasting as long. She is having a severe headache once a week, which can last 2-3 days. She has an almost daily low level headache, rarely can have a headache free day. She is not noticing as much left temporal region paresthesias, it can just be a bit bothersome now. She did start riboflavin and magnesium, which she feels is helpful. She never started topiramate, she is very about risk for seizure with it. She is noticing increased forgetfulness, transient. She describes this as brain fog. May forget what she is doing. Or has momentarily forgotten her co-workers names. Her LTM is intact. Denies h/o seizures, ADD/ADHD s/s. Vision seems to be more blurry every year- due for f/u eye exam. Has had a 30 lb weight gain since Dec 2022- she is not sure why. Has noticing more very brief zapping pains (like being electrocuted in 1 spot) in bilateral legs- more so when walking. Occurs randomly, every few days, but can repeat a couple of times in 1 day. No leg cramps. Has some restless leg symptoms- now more a discomfort, but better than before. She can feel off-balance. Now has motion sickness. One time, woke up with room spinning dizziness. Has been having non-radiating low back pain. No weakness, numbness in BLE. Tries to walk for exercise. Baseline headache characteristics: Holocranial pressure headache a/w photophobia, phonophobia, nausea, dizziness, worsening. Left denominational discomfort, altered sensation but can feel it- previously was more numb. [facility] Medical History Alopecia areata Endometriosis GERD (gastroesophageal reflux disease) IBS (irritable bowel syndrome) Microscopic hematuria Family History Mother No problems noted. Father CAD (coronary artery disease) HTN (hypertension) Hyperlipidemia Family/Other Diabetes Heart disease Family/Other Heart disease CAD (coronary artery disease) Family/Other Breast cancer Ovarian cancer Cancer of uterine tube Colon cancer Social History Alcohol intake: current Alcohol intake frequency: holidays/special occasions only Patient Tobacco Use Status: Former Tobacco user Quit Date: 2016 Physical Exam Vital Signs: Last Vital Signs Pulse 73 06/09/23 08:00 BP 128/74 06/09/23 08:00 Pulse Ox 98 06/09/23 08:00 Oxygen Delivery Method Room Air 06/09/23 08:00 BMI result Body Mass Index 36.4 Const General: cooperative and no acute distress Orientation/consciousness: patient oriented x3 Resp Effort & Inspection: normal respiratory effort and able to speak in complete sentences Neuro General: patient oriented x3 Cranial nerves: Yes CN's II-XII intact bilaterally Cognition (Neuro): normal cognition Motor exam (neuro): 5/5 motor strength present throughout Deep tendon reflexes (DTR's): Right patellar reflex intensity grade: 1+ and Left patellar reflex intensity grade: 1+ Psych Appearance: grossly normal Mental Status: mental status grossly normal Speech and movement: Normal speech and movement present Affect: normal affect Attitude: cooperative Assessment & Plan Assessment & Plan (1) Migraine: Comment: new onset headache w/ migrainous s/s, as well as worsening left facial paresthesias and speech difficulties- ? IIH, ? migraine w/ aura, ? headache attack exacerbating underlying trigeminal neuropathy process Code(s): G43.909 - Migraine, unspecified, not intractable, without status migrainosus (2) Facial paresthesia: Comment: left temporal/jaw region. Not a/w facial pain, bruxism, or painful chewing. ? trigeminal neuropathic process. Code(s): R20.2 - Paresthesia of skin (3) Chiari I malformation: Code(s): G93.5 - Compression of brain (4) Cognitive dysfunction: Code(s): F09 - Unspecified mental disorder due to known physiological condition (5) Snoring: Code(s): R06.83 - Snoring (6) Fatigue: Code(s): R53.83 - Other fatigue Plan Reviewed previous OP-19 cmH2O w/ normal CSF studies. Pt advised to undergo f/u brain MRI to assess for signs of intracranial hypertension in setting of known empty sella, chairi malformation, blurry vision, weight gain. Patient advised to undergo HST to assess for sleep apnea. Check labs for common etiologies of headache, fatigue, cogntive difficulties, paresthesias, and weight gain. Pt advsied to have f/u eye exam. Future considerations- brain MRA- to assess for left TN vascular compression. EEG for cognitive s/s. ? For overall headache management: Discussed importance of good self-care, including but not limited to maintaining a healthy diet, adequate fluid intake, adequate sleep, and engaging in regular physical activity. ? For acute headache treatment: Continue Ibuprofen 400-600mg prn. Trial naratriptan as needed. Previous acute migraine medication trials: Sumatriptan- worsened headaches. Fioricet- ineffective. Acute migraine medication contraindications: None at this time ? For headache prevention medication: Continue Riboflavin 400mg qam Continue Magnesium 400mg qhs Reviewed rationale and possible s/e's of Topiramate. Trial Topiramate 25m tab qhs x's 1 wk, then 2 tabs qhs x's 1 wk, then 1 tab qam and 2 tabs qhs x's 1 week, then 2 tabs bid- as this can be used in IIH, migraine tx, and can promote wt loss. Previous migraine prevention medication trials: None Migraine prevention medication contraindications: None Orders: Orders Complete Blood Count Auto Diff Today E23.6 - Other disorders of pituitary gland, F09 - Unspecified mental disorder due to known physiological condition, G43.909 - Migraine, unspecified, not intractable, without status migrainosus, G93.5 - Compression of brain, R20.2 - Paresthesia of skin, R51.9 - Headache, unspecified, R63.5 - Abnormal weight gain TSH reflex Free T4 Today E23.6 - Other disorders of pituitary gland, F09 - Unspecified mental disorder due to known physiological condition, G43.909 - Migraine, unspecified, not intractable, without status migrainosus, G93.5 - Compression of brain, R20.2 - Paresthesia of skin, R51.9 - Headache, unspecified, R63.5 - Abnormal weight gain Rheumatoid Factor Today E23.6 - Other disorders of pituitary gland, F09 - Unspecified mental disorder due to known physiological condition, G43.909 - Migraine, unspecified, not intractable, without status migrainosus, G93.5 - Compression of brain, R20.2 - Paresthesia of skin, R51.9 - Headache, unspecified, R63.5 - Abnormal weight gain JOSE G Reflex Titer and Pattern Today E23.6 - Other disorders of pituitary gland, F09 - Unspecified mental disorder due to known physiological condition, G43.909 - Migraine, unspecified, not intractable, without status migrainosus, G93.5 - Compression of brain, R20.2 - Paresthesia of skin, R51.9 - Headache, unspecified, R63.5 - Abnormal weight gain Hemoglobin A1c Today E23.6 - Other disorders of pituitary gland, F09 - Unspecified mental disorder due to known physiological condition, G43.909 - Migraine, unspecified, not intractable, without status migrainosus, G93.5 - Compression of brain, R20.2 - Paresthesia of skin, R51.9 - Headache, unspecified, R63.5 - Abnormal weight gain Free T4 (Free Thyroxine) Today E23.6 - Other disorders of pituitary gland, F09 - Unspecified mental disorder due to known physiological condition, G43.909 - Migraine, unspecified, not intractable, without status migrainosus, G93.5 - Compression of brain, R20.2 - Paresthesia of skin, R51.9 - Headache, unspecified, R63.5 - Abnormal weight gain Prolactin Today E23.6 - Other disorders of pituitary gland, F09 - Unspecified mental disorder due to known physiological condition, G43.909 - Migraine, unspecified, not intractable, without status migrainosus, G93.5 - Compression of brain, R20.2 - Paresthesia of skin, R51.9 - Headache, unspecified, R63.5 - Abnormal weight gain Lutenizing Hormone Today E23.6 - Other disorders of pituitary gland, F09 - Unspecified mental disorder due to known physiological condition, G43.909 - Migraine, unspecified, not intractable, without status migrainosus, G93.5 - Compression of brain, R20.2 - Paresthesia of skin, R51.9 - Headache, unspecified, R63.5 - Abnormal weight gain MR head/brain wo/w con Today E23.6 - Other disorders of pituitary gland, F09 - Unspecified mental disorder due to known physiological condition, G43.909 - Migraine, unspecified, not intractable, without status migrainosus, G93.5 - Compression of brain, R20.2 - Paresthesia of skin, R51.9 - Headache, unspecified, R63.5 - Abnormal weight gain Comprehensive Met. Panel Today E23.6 - Other disorders of pituitary gland, F09 - Unspecified mental disorder due to known physiological condition, G43.909 - Migraine, unspecified, not intractable, without status migrainosus, G93.5 - Compression of brain, R20.2 - Paresthesia of skin, R51.9 - Headache, unspecified, R63.5 - Abnormal weight gain Erythrocyte Sedimentation Rate Today E23.6 - Other disorders of pituitary gland, F09 - Unspecified mental disorder due to known physiological condition, G43.909 - Migraine, unspecified, not intractable, without status migrainosus, G93.5 - Compression of brain, R20.2 - Paresthesia of skin, R51.9 - Headache, unspecified, R63.5 - Abnormal weight gain CRP High Sensitivity Today E23.6 - Other disorders of pituitary gland, F09 - Unspecified mental disorder due to known physiological condition, G43.909 - Migraine, unspecified, not intractable, without status migrainosus, G93.5 - Compression of brain, R20.2 - Paresthesia of skin, R51.9 - Headache, unspecified, R63.5 - Abnormal weight gain Vitamin B12 and Folate Today E23.6 - Other disorders of pituitary gland, F09 - Unspecified mental disorder due to known physiological condition, G43.909 - Migraine, unspecified, not intractable, without status migrainosus, G93.5 - Compression of brain, R20.2 - Paresthesia of skin, R51.9 - Headache, unspecified, R63.5 - Abnormal weight gain Follicle Stimulating Hormone Today E23.6 - Other disorders of pituitary gland, F09 - Unspecified mental disorder due to known physiological condition, G43.909 - Migraine, unspecified, not intractable, without status migrainosus, G93.5 - Compression of brain, R20.2 - Paresthesia of skin, R51.9 - Headache, unspecified, R63.5 - Abnormal weight gain Saliva Cortisol Today E23.6 - Other disorders of pituitary gland, F09 - Unspecified mental disorder due to known physiological condition, G43.909 - Migraine, unspecified, not intractable, without status migrainosus, G93.5 - Compression of brain, R20.2 - Paresthesia of skin, R51.9 - Headache, unspecified, R63.5 - Abnormal weight gain RT home sleep study Today G47.9 - Sleep disorder, unspecified, R06.83 - Snoring, R53.83 - Other fatigue, R63.5 - Abnormal weight gain Medications: New naratriptan take 1/2 - 1 tab at onset of headache; if no relief may repeat 1 tab after at least 4 hrs; max = 2 tabs/24 hrs orally PRN; 30 days 12 tabs 6RF migraine headache Refilled topiramate 1 tab qhs x's 1 wk, then 2 tabs qhs x's 1 wk, then 1 tab qam and 2 tabs qhs x's 1 week, then 2 tabs bid. orally .; 30 days 120 tabs 3RF riboflavin (vitamin B2) 400 mg PO DAILY 30 days 30 tabs 6RF magnesium oxide may hold for loose stools 400 mg PO BEDTIME 30 days 30 tabs 6RF Coding Level of Care Code Est Pt Level 4 (40549) Diagnoses Migraine G43.909 Facial paresthesia R20.2 Chiari I malformation G93.5 Cognitive dysfunction F09 Snoring R06.83 Fatigue R53.83
[2023-06-09 08:00] VITALS: BP 128/74; PULSE 73; O2SAT 98; BMI 36.4
== END 2023-06-09 09:05 | disposition home or self-care (01) ==
PROVIDERS: PCP Internal Medicine; Visit Provider Nurse Practitioner Family
DX: G43.909 Migraine, unspecified, not intractable, without status migrainosus (principal); R20.2 Paresthesia of skin; G93.5 Compression of brain; R41.89 Other symptoms and signs involving cognitive functions and awareness; R06.83 Snoring; R53.83 Other fatigue
CPT/HCPCS: 99214

== ENCOUNTER → 2023-06-09 07:54 | Outpatient (BNVA) | payer OTHER, SELFPAY | PROVIDERS: PCP Internal Medicine; Visit Provider Nurse Practitioner Family ==

== ENCOUNTER 2023-06-10 09:48 | Outpatient (REF) | payer OTHER, SELFPAY ==
[2023-06-10 11:13] LABS: MANUAL DIFF FLAG NO
[2023-06-10 11:29] LABS: Rheumatoid Factor < 13.0 IU/mL (<15.0)
[2023-06-10 11:34] LABS: Estimated Average Glucose 94 mg/dL; Hemoglobin A1c % 4.9 % (<6.0)
[2023-06-10 11:36] LABS: Alanine Aminotransferase 21 U/L (0-31); Albumin Level 3.7 g/dL (3.5-5.0); Alkaline Phosphatase 91 U/L (39-117); Anion Gap 9 (12-20); Aspartate Amino Transferase 18 U/L (5-31); Bilirubin Total 0.5 mg/dL (0.0-1.0); Blood Urea Nitrogen 10 mg/dL (9-16); Calcium 8.9 mg/dL (8.4-10.2); Carbon Dioxide 25 mmol/L (22-29); Chloride 109 mmol/L (96-108); Estimated Glomerular Filt Rate > 60; Glucose Random 98 mg/dL (60-115); Potassium 3.8 mmol/L (3.3-5.1); Sodium 139 mmol/L (135-145); Total Protein 7.4 g/dL (6.5-8.0)
[2023-06-10 11:51] LABS: Free T4 (Free Thyroxine) 0.97 ng/dL (0.71-1.85)
[2023-06-10 11:59] LABS: Folate 8.7 ng/mL (> or = 4.0); Vitamin B12 464 pg/mL (200-900)
[2023-06-10 12:05] LABS: Erythrocyte Sedimentation Rate 11 MM/HR (0-20)
[2023-06-10 12:17] LABS: Basophils Percent Auto 0.3 % (0-2); Eosinophils Absolute Auto 0.1 X10*3/uL (0.0-0.4); Eosinophils Percent Auto 1.3 % (0-4); Hematocrit 39.3 % (37.0-47.0); Hemoglobin 13.5 g/dl (12.0-16.0); Imm Gran Abs Auto 0.03 X10*3/uL (0.00-0.03); Imm Gran Pct Auto 0.5 % (0.0-0.4); Lymphocytes Absolute Auto 1.9 X10*3/uL (1.2-4.9); Mean Corpuscular HGB Conc 34.4 g/dl (31.0-35.0); Mean Corpuscular Hemoglobin 30.3 pg (27.0-33.0); Mean Corpuscular Volume 88.1 fL (80.0-98.0); Mean Platelet Volume 10.8 fL (9.4-12.3); Monocytes Absolute Auto 0.3 X10*3/uL (0.1-1.2); Neutrophils Percent Auto 62.9 % (45-73); Platelet Count 250 X10*3/uL (160-400); Red Blood Count 4.46 X10*6/uL (4.20-5.50); Red Cell Distribution Width 12.8 % (11.0-16.0); White Blood Count 6.4 X10*3/uL (4.8-10.8)
[2023-06-11 08:53] LABS: Follicle Stimulating Hormone 2.3 mIU/mL; Lutenizing Hormone 2.3 mIU/mL; Prolactin 7.9 ng/mL
[2023-06-13 14:49] LABS: CRP High Sensitivity 2.4 mg/L
[2023-06-17 19:08] LABS: Anti Nuclear Antibody Screen POSITIVE (NEGATIVE)
== END 2023-06-10 09:49 | disposition home or self-care (01) ==
LOC: HO.HHCL 09:48
PROVIDERS: Visit Provider Nurse Practitioner Family
DX: E23.6 Other disorders of pituitary gland (principal); R20.2 Paresthesia of skin; R63.5 Abnormal weight gain; G93.5 Compression of brain; F09 Unspecified mental disorder due to known physiological condition; G43.909 Migraine, unspecified, not intractable, without status migrainosus
CPT/HCPCS: 36415; 80053; 82607; 82746; 83001; 83002; 83036; 84146; 84439; 84443; 85025; 85652; 86038; 86039; 86141; 86431

== ENCOUNTER 2023-07-06 08:03 | Outpatient (REF) | payer OTHER, SELFPAY ==
--- NOTE | ~2023-07-06 | MR_ITS ---
MRI OF THE BRAIN WITH AND WITHOUT IV CONTRAST INDICATION: Disorders of the pituitary gland. COMPARISON: Head CT 07/30/2014. TECHNIQUE: Multiplanar multisequence MR imaging of the brain was obtained without and following the administration of 4 of Gadavist without complication with dedicated IAC pulse series. FINDINGS: There is an expansile partially empty sella. 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 The infundibulum remains midline. No mass effect on the optic nerve apparatus. The cavernous sinuses are symmetric and normal. There is no pathologic intracranial enhancement. No acute infarct on diffusion-weighted imaging. No hydrocephalus, extra-axial surface collection, or herniation. Cerebellar tonsils are normally positioned. Craniocervical junction is normal. Osseous marrow signal intensity remains homogeneous. No significant soft tissue abnormality is appreciated. MR/MR head/brain wo/w con IMPRESSION: There is an expansile partially empty sella. 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
[2023-07-06] MEDS: gadobutroL 2 ML VIAL IVPUSH ×2 (08:50→08:51)
== END 2023-07-06 08:04 | disposition home or self-care (01) ==
LOC: HO.MRI 08:03
PROVIDERS: PCP Internal Medicine; Visit Provider Nurse Practitioner Family
DX: E23.6 Other disorders of pituitary gland (principal); R20.2 Paresthesia of skin; R63.5 Abnormal weight gain; G93.5 Compression of brain; F09 Unspecified mental disorder due to known physiological condition; G43.909 Migraine, unspecified, not intractable, without status migrainosus
CPT/HCPCS: 70553; A9585

== ENCOUNTER 2023-07-26 14:49 | Outpatient (AMB) | payer OTHER, SELFPAY ==
[2023-07-26 14:56] VITALS: BP 122/74; PULSE 104; O2SAT 98; BMI 35.6
--- NOTE | 2023-07-26 14:56 | A.OFFVIS_ITS ---
Intake Vital Signs 07/26/23 14:56 Height 4 ft 11 in Weight 176 lb 5.917 oz BMI 35.6 BP 122/74 Blood Pressure Location Rt brachial Position Sitting Pulse 104 H Pulse Source Pulse Oximeter Pulse Oximetry (%) 98 Oxygen Delivery Method Room Air Intake Visit Reasons: +JOSE G/LVM Intake Note: New patient presents today for +JOSE G consult, internally referred by neuro Pinky Tejada. 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 orally .; 30 days HPI HPI Comments History of Present Illness Details 43-year-old female presents for evaluati on of a positive JOSE G. This was in the context of increased headaches for about 1 year. She also stated that she has been having some abnormal sensation on her left alevism since about 2020. After getting her COVID vaccine. She also has lower back pain. She states that she was diagnosed with alopecia areata at age 27, she used to follow-up with veterinary attendant and she would get intralesional steroids with some improvement. States that she continues to have intermittent episodes of bald spots on her scalp. She also states that she sees clumps of hair on her pillow. She has dry eyes. She does not use any artificial tears. Denies dry mouth. She denies any skin rashes. Denies any fevers. Denies any swollen joints. Her fingers do not change color in the cold. She is unaware of any family history of an autoimmune rheumatic disease. Denies any history of DVT/PE. She had 4 pregnancies, 1 live , 1 ectopic , 1 and 1 miscarriage She was evaluated by Neurology and had a brain MRI, she also had CSF studies which were unremarkable [facility] Medical History Microscopic hematuria Alopecia areata GERD (gastroesophageal reflux disease) Endometriosis IBS (irritable bowel syndrome) Family History Mother No problems noted. 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 Female Reproductive History Menstrual Total pregnancies: 4 Full term: 1 Number of Living Children: 1 Ab induced: 1 Ab spontaneous: 1 Ectopics: 1 Review of Systems Const Reports fatigue and Reports weakness Eyes Reports dry eyes ENT Reports dysphagia Card Reports chest pain and Reports dyspnea Resp Reports dyspnea GI Reports dysphagia, Reports heartburn and Reports nausea Musc Reports back pain Skin/Breast Reports unusual bruising Neuro Reports memory loss and Reports weakness Psych Reports abnormal sleep pattern and Reports memory loss Endo Reports fatigue Physical Exam Vital Signs: Last Vital Signs Pulse 104 H 07/26/23 14:56 BP 122/74 07/26/23 14:56 Pulse Ox 98 07/26/23 14:56 Oxygen Delivery Method Room Air 07/26/23 14:56 BMI result Body Mass Index 35.6 Const General: cooperative, healthy appearing and comfortable Nutritional Appearance: obese Orientation/consciousness: patient oriented x3 Limitations: no limitations HEENT Other: No temporal area tenderness bilaterally Head: Yes normocephalic and Yes atraumatic Mouth: moist mucous membranes Resp Effort & Inspection: normal respiratory effort and able to speak in complete sentences Auscultation: clear to auscultation bilaterally Cardio Rate: regular rate Rhythm: regular rhythm Heart sounds: S1 normal heart sound present Skin General skin exam: no rashes or lesions noted Neuro General: patient oriented x3 Extrem Other: No active synovitis Normal nailfold capillaroscopy Bilateral lumbar paraspinal muscle tenderness Assessment & Plan Assessment & Plan (1) JOSE G positive: Code(s): R76.8 - Other specified abnormal immunological findings in serum Plan: This is a 43-year-old female who is referred by Neurology for evaluation of a positive JOSE G in the setting of new onset headaches and left-sided facial paresthesias as well as low back pain. Patient has known history of alopecia areata. Will order comprehensive serology to screen for underlying autoimmune rheumatic disease. Follow-up in 4 weeks Plan I spent 47 minutes reviewing patient's chart, evaluating patient, ordering diagnostic workup, counseling patient and documenting in the chart Orders: Orders Anti Extractable Nuclear Ag Today M32.9 - Systemic lupus erythematosus, unspecified Anti DNA DS Antibody Today M32.9 - Systemic lupus erythematosus, unspecified Complement C3 Today M32.9 - Systemic lupus erythematosus, unspecified Complement C4 Today M32.9 - Systemic lupus erythematosus, unspecified C Reactive Protein Today M32.9 - Systemic lupus erythematosus, unspecified DNA Double Stranded-Crithidia Today M32.9 - Systemic lupus erythematosus, unspecified Sjogren's Antibodies Today M32.9 - Systemic lupus erythematosus, unspecified Thyroglobulin Antibodies Today E07.9 - Disorder of thyroid, unspecified Thyroid Peroxidase Antibodies Today E07.9 - Disorder of thyroid, unspecified Protein Creatinine Ratio, Ur Today M32.9 - Systemic lupus erythematosus, u nspecified UA w Microscopic Today M32.9 - Systemic lupus erythematosus, unspecified Coding Level of Care Code New Pt Level 4 (85443) Diagnoses JOSE G positive R76.8
== END 2023-07-26 15:34 | disposition home or self-care (01) ==
PROVIDERS: PCP Internal Medicine; Referring Provider Nurse Practitioner Family; Visit Provider Student in an Organized Health Care Education/Training Program
DX: R76.8 Other specified abnormal immunological findings in serum (principal)
CPT/HCPCS: 99204

== ENCOUNTER → 2023-07-26 14:49 | Outpatient (BNVA) | payer OTHER, SELFPAY | PROVIDERS: PCP Internal Medicine; Referring Provider Nurse Practitioner Family; Visit Provider Student in an Organized Health Care Education/Training Program ==

== ENCOUNTER 2023-07-27 07:25 | Outpatient (REF) | payer OTHER, SELFPAY ==
[2023-07-27 08:34] LABS: Appearance Urine Cloudy; Color Urine Yellow; Glucose Urine UA Negative (Negative); Leukocyte Esterase Urine Moderate (2+) (Negative); Nitrite Urine Negative (Negative); UMIC TRIGGER UA YES; Urine Blood Small (1+) (Negative); Urine Ketones Negative (Negative); Urine Protein Negative (Neg-Trace)
[2023-07-27 09:03] LABS: Bacteria Urine 2+ (None Seen); Hyaline Casts Urine 0-2 /LPF (0-2)
[2023-07-27 09:15] LABS: Creatinine Urine 158.73 mg/dL; Total Protein Urine Random 16 mg/dL (<12)
[2023-07-27 09:19] LABS: C Reactive Protein 0.13 mg/dL (< or = 0.50)
[2023-07-28 11:43] LABS: Complement C3 40 mg/dL (83-193)
[2023-07-28 18:03] LABS: Thyroglobulin Antibodies <1 IU/mL (< or = 1); Thyroid Peroxidase Antibodies 1 IU/mL (<9)
[2023-07-28 19:14] LABS: Anti DNA DS Antibody <1 IU/mL; Antibody to SS-A Antigen <1.0 NEG AI (<1.0 NEG); Antibody to SS-B Antigen <1.0 NEG AI (<1.0 NEG); SM/Ribonucleoprotein Ab <1.0 NEG AI (<1.0 NEG); Smith Protein <1.0 NEG AI (<1.0 NEG)
[2023-08-02 06:52] LABS: DNAds, Crithidia Antibody Positive (Negative)
[2023-08-02 07:18] LABS: DNAds, Crithidia Antibody 1:20 titer (<1:10)
== END 2023-07-27 07:26 | disposition home or self-care (01) ==
LOC: HO.LAB 07:25
PROVIDERS: PCP Internal Medicine; Visit Provider Student in an Organized Health Care Education/Training Program
DX: M32.9 Systemic lupus erythematosus, unspecified (principal); E07.9 Disorder of thyroid, unspecified
CPT/HCPCS: 36415; 81001; 82570; 84156; 86140; 86160; 86225; 86235; 86255; 86376; 86800

== ENCOUNTER 2023-08-04 07:31 | Outpatient (AMB) | payer OTHER, SELFPAY ==
--- NOTE | 2023-08-04 07:55 | MHC.OFFVIS ---
Intake Vital Signs 08/04/23 07:56 Height 4 ft 11 in Weight 176 lb BMI 35.5 BP 106/68 Blood Pressure Location Rt brachial Position Sitting Respiration 16 Pulse 83 Pulse Source Pulse Oximeter Intake Visit Reasons: Follow up Migraine-CONF Intake Note: Pt presents to the office for follow up for migraines. Bacteriology Research Assistant Required: No Allergies No Known Allergies [NKA] Allergy (Mild, Verified 08/04/23 07:55) NKA Medication List - Last Reconciled 08/04/23 by LES Jerome ibuprofen 600 mg PO Q6H PRN magnesium oxide 400 mg PO BEDTIME 30 days nitrofurantoin macrocrystal 100 mg PO BID 5 days pantoprazole 40 mg PO DAILY riboflavin (vitamin B2) 400 mg PO DAILY 30 days sumatriptan succinate 50 - 100 mg orally at onset of headache, may repeat in 2 hrs PRN; max 2 tabs per day or 4 tabs/week (may take with Ibuprofen) 30 days topiramate 1 tab qhs x's 1 wk, then 2 tabs qhs x's 1 wk, then 1 tab qam and 2 tabs qhs x's 1 week, then 2 tabs bid. orally .; 30 days HPI HPI Comments History of Present Illness Details 43-yr-old female presents for f/u visit. 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 F/u pituitary studies lab work was WNL. Pt denies diplopia, vision changes. Labs reveiwed- resulted notable for positive JOSE G. Pt was referred to rheumatology, she has had initial consult and further lab work-up- has f/u in August. HST is scheduled for 08/23. Pt reports she is still having headaches, and occasional more severe back May have a week or 2 w/o any headache but then can have 3-4 migraine days per week. She has had to miss work last for the more severe migraine. Has retried Sumatriptan a few times, and finds it helpful and is now tolerating it better than the 1st time she tried it. Baseline headache characteristics- Varies, Mod-Severe, throbbing, stabbing starting in bilateral lower occipital region and moves into bilateral temples/frontal region and then the whole head a/w photophobia, phonophobia, nausea, vomiting if severe, not right in space dizziness, brain fog, fatigue, worsening left facial paresthesias, speech slurring, activity intolerance. Interval work-up: 05/02/22 06/10/23 07/27/23 12:52 09:52 07:36 C-Reactive Protein 0.13 C-React Prot High Sens 2.4 Vitamin B12 464 Folate 8.7 TSH 1.20 Free T4 0.97 FSH 2.3 Luteinizing Hormon e 2.3 Prolactin 7.9 Beta HCG, Quant < 2 Rheumatoid Factor < 13.0 JOSE G Screen POSITIVE A JOSE G Titer 1:80 H JOSE G Titer 2 1:80 H JOSE G Pattern A JOSE G Pattern 2 A 07/06/23, MR/MR head/brain wo/w con IMPRESSION: There is an expansile partially empty sella. 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 [facility] Medical History Microscopic hematuria Alopecia areata GERD (gastroesophageal reflux disease) Endometriosis IBS (irritable bowel syndrome) Family History Mother No problems noted. 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 Physical Exam Vital Signs: Last Vital Signs Pulse 83 08/04/23 07:56 Resp 16 08/04/23 07:56 BP 106/68 08/04/23 07:56 BMI result Body Mass Index 35.5 Const General: cooperative and no acute distress Orientation/consciousness: patient oriented x3 Resp Effort & Inspection: normal respiratory effort and able to speak in complete sentences Neuro General: patient oriented x3 Cranial nerves: Yes CN's II-XII intact bilaterally Cognition (Neuro): normal cognition Psych Appearance: grossly normal Mental Status: mental status grossly normal Speech and movement: Normal speech and movement present Affect: normal affect Attitude: cooperative Assessment & Plan Assessment & Plan (1) Migraine: Comment: new onset headache w/ migrainous s/s, as well as worsening left facial paresthesias and speech difficulties- ? IIH, ? migraine w/ aura, ? headache attack exacerbating underlying trigeminal neuropathy process Code(s): G43.909 - Migraine, unspecified, not intractable, without status migrainosus (2) Facial paresthesia: Comment: left temporal/jaw region. Not a/w facial pain, bruxism, or painful chewing. ? trigeminal neuropathic process. Code(s): R20.2 - Paresthesia of skin (3) Fatigue: Code(s): R53.83 - Other fatigue Plan Reviewed previous OP-19 cmH2O w/ normal CSF studies. Reviewed brain MRI- expansile partially empty sella. 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 F/u pituitary studies- WNL. Consider f/u MRI in 1-2 yrs.. HST as ordered- to assess for sleep apnea. Eye exam F/u w/ rheumatology as scheduled. Future considerations- brain MRA- to assess for left TN vascular compression. EEG for cognitive s/s. ? For overall headache management: Discussed importance of good self-care, including but not limited to maintaining a healthy diet, adequate fluid intake, adequate sleep, and engaging in regular physical activity. ? For acute headache treatment: Continue Ibuprofen 400-600mg prn. Hold naratriptan as needed- not tried yet. Resume Sumatriptan prn. Previous acute migraine medication trials: Fioricet- ineffective. Acute migraine medication contraindications: None at this time ? For headache prevention medication: Continue Riboflavin 400mg qam Continue Magnesium 400mg qhs Again trial Topiramate 25m tab qhs x's 1 wk, then 2 tabs qhs x's 1 wk, then 1 tab qam and 2 tabs qhs x's 1 week, then 2 tabs bid- as this can be used in migraine tx, and can promote wt loss. Previous migraine prevention medication trials: None Migraine prevention medication contraindications: None Medications: New sumatriptan succinate (0.5 - 1 x 100 mg) 50 - 100 mg orally at onset of headache, may repeat in 2 hrs PRN; max 2 tabs per day or 4 tabs/week (may take with Ibuprofen) 30 days 12 tabs 6RF migraine headache Refilled topiramate 1 tab qhs x's 1 wk, then 2 tabs qhs x's 1 wk, then 1 tab qam and 2 tabs qhs x's 1 week, then 2 tabs bid. orally .; 30 days 120 tabs 3RF Discontinued naratriptan Discontinued Reason: Doctor's Order take 1/2 - 1 tab at onset of headache; if no relief may repeat 1 tab after at least 4 hrs; max = 2 tabs/24 hrs orally PRN; 30 days 12 tabs 6RF migraine headache Coding Level of Care Code Est Pt Level 4 (17265) Diagnoses Migraine G43.909 Facial paresthesia R20.2 Fatigue R53.83
[2023-08-04 07:56] VITALS: BP 106/68; PULSE 83; RESP 16; BMI 35.5
== END 2023-08-04 08:22 | disposition home or self-care (01) ==
PROVIDERS: PCP Internal Medicine; Visit Provider Nurse Practitioner Family
DX: G43.909 Migraine, unspecified, not intractable, without status migrainosus (principal); R20.2 Paresthesia of skin; R53.83 Other fatigue
CPT/HCPCS: 99214

== ENCOUNTER → 2023-08-04 07:31 | Outpatient (BNVA) | payer OTHER, SELFPAY | PROVIDERS: PCP Internal Medicine; Visit Provider Nurse Practitioner Family | DX: E23.6 Other disorders of pituitary gland (principal); R20.2 Paresthesia of skin; R63.5 Abnormal weight gain; R51.9 Headache, unspecified; G93.5 Compression of brain; F09 Unspecified mental disorder due to known physiological condition; G43.909 Migraine, unspecified, not intractable, without status migrainosus; R06.83 Snoring; R53.83 Other fatigue; G47.9 Sleep disorder, unspecified ==

== ENCOUNTER 2023-08-25 14:36 | Outpatient (AMB) | payer OTHER, SELFPAY ==
[2023-08-25 14:39] VITALS: BP 120/72; PULSE 106; O2SAT 97; BMI 36.1
--- NOTE | 2023-08-25 14:39 | MHC.OFFVIS ---
Vital Signs 08/25/23 14:39 Height 4 ft 11 in Weight 178 lb 9.191 oz BMI 36.1 BP 120/72 Blood Pressure Location Rt brachial Position Sitting Pulse 106 H Pulse Source Pulse Oximeter Pulse Oximetry (%) 97 Oxygen Delivery Method Room Air Intake Visit Reasons: JOSE G +ve/CM Intake Note: Patient last seen 07/26/23 presents today for follow up and test results. Reports back pain not getting better. Pain is in lower back and very tender Transmission Builder Required: No Accompanied by: Self / Same As Patient Allergies No Known Allergies [NKA] Allergy (Mild, Verified 08/25/23 14:42) NKA Medication List - Last Reconciled 08/25/23 by Micaela Xie MD hydroxychloroquine 200 mg PO BID ibuprofen 600 mg PO Q6H PRN magnesium oxide 400 mg PO BEDTIME 30 days pantoprazole 40 mg PO DAILY riboflavin (vitamin B2) 400 mg PO DAILY 30 days sumatriptan succinate 50 - 100 mg orally at onset of headache, may repeat in 2 hrs PRN; max 2 tabs per day or 4 tabs/week (may take with Ibuprofen) 30 days HPI Comments Details: Patient returns for follow-up after completion of her diagnostic workup. She was recently started on Topamax by neurologist for migraines, she did not take it for fear of side effects. She takes sumatriptan as needed for migraine attacks. Today she is complaining of lower back pain. Continues to have intermittent hair loss. Has not had any bald spots recently. Denies any skin rashes. Initial history: 43-year-old female presents for evaluation of a positive JOSE G. This was in the context of increased headaches for about 1 year. She also stated that she has been having some abnormal sensation on her left protestant since about 2020. After getting her COVID vaccine. She also has lower back pain. 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 States that she continues to have intermittent episodes of bald spots on her scalp. She also states that she sees clumps of hair on her pillow. She has dry eyes. She does not use any artificial tears. Denies dry mouth. She denies any skin rashes. Denies any fevers. Denies any swollen joints. Her fingers do not change color in the cold. She is unaware of any family history of an autoimmune rheumatic disease. Denies any history of DVT/PE. She had 4 pregnancies, 1 live , 1 ectopic , 1 and 1 miscarriage She was evaluated by Neurology and had a brain MRI, she also had CSF studies which were unremarkable [facility] Medical History Microscopic hematuria Alopecia areata GERD (gastroesophageal reflux disease) Endometriosis IBS (irritable bowel syndrome) Family History Mother No problems noted. 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 Review of Systems Const Reports fatigue and Reports weakness Musc Reports back pain Skin/Breast Reports alopecia and Reports unusual bruising Neuro Reports memory loss and Reports weakness Psych Reports abnormal sleep pattern and Reports memory loss Endo Reports fatigue Physical Exam Vital Signs: Last Vital Signs Pulse 106 H 08/25/23 14:39 BP 120/72 08/25/23 14:39 Pulse Ox 97 08/25/23 14:39 Oxygen Delivery Method Room Air 08/25/23 14:39 BMI result Body Mass Index 36.1 Const General: cooperative, healthy appearing and comfortable Nutritional Appearance: obese Orientation/consciousness: patient oriented x3 Limitations: no limitations HEENT Head: Yes normocephalic and Yes atraumatic Mouth: moist mucous membranes Resp Effort & Inspection: normal respiratory effort and able to speak in complete sentences Auscultation: clear to auscultation bilaterally Cardio Rate: regular rate Rhythm: regular rhythm Heart sounds: S1 normal heart sound present Skin General skin exam: no rashes or lesions noted Neuro General: patient oriented x3 Extrem Other: No active synovitis Normal nailfold capillaroscopy Bilateral lower lumbar paraspinal muscle tenderness Assessment & Plan Assessment & Plan (1) JOSE G positive: Code(s): R76.8 - Other specified abnormal immunological findings in serum Category: Medical Plan: This is a 43-year-old female who is referred by Neurology for evaluation of a positive JOSE G in the setting of new onset headaches and left-sided facial paresthesias as well as low back pain. Patient has known history of alopecia areata. Physical exam is unremarkable except for minimally thinning hair in the frontal area. Labs showed positive JOSE G, borderline positive dsDNA and low C3 and C4. Patient has been having headaches since she was a child but has been having more severe headaches, more consistent with migraines over the last 2-3 years. Given positive SLE serology it would be reasonable to treat for SLE. Start hydroxychloroquine 200 mg Twice daily. Given new onset migraines will check antiphospholipid antibodies Labs before next visit in 3 months (2) Long-term use of hydroxychloroquine: Code(s): Z79.899 - Other custodial (current) drug therapy Category: Medical Plan: Discussed risk of retinopathy associated with hydroxychloroquine. 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 and make an appointment Plan I spent 27 minutes reviewing patient's chart, evaluating patient, ordering diagnostic workup, counseling patient and documenting in the chart Orders: Orders Anti DNA DS Antibody 3 Months M32.9 - Systemic lupus erythematosus, unspecified Complement C3 3 Months M32.9 - Systemic lupus erythematosus, unspecified Complement C4 3 Months M32.9 - Systemic lupus erythematosus, unspecified C Reactive Protein 3 Months M32.9 - Systemic lupus erythematosus, unspecified Erythrocyte Sedimentation Rate 3 Months M32.9 - Systemic lupus erythematosus, unspecified DNA Double Stranded-Crithidia 3 Months M32.9 - Systemic lupus erythematosus, unspecified Beta-2 Glycoprotein Antibody Today D68.61 - Antiphospholipid syndrome UA w Microscopic 3 Months M32.9 - Systemic lupus erythematosus, unspecified Protein Creatinine Ratio, Ur 3 Months M32.9 - Systemic lupus erythematosus, unspecified Complete Blood Count Auto Diff 3 Months M32.9 - Systemic lupus erythematosus, unspecified Comprehensive Met. Panel 3 Months M32.9 - Systemic lupus erythematosus, unspecified Cardiolipin Antibodies Today D68.61 - Antiphospholipid syndrome Lupus Anticoagulant Panel Today D68.61 - Antiphospholipid syndrome Medications: New hydroxychloroquine 200 mg PO BID 60 tabs 2RF Coding Level of Care Code Est Pt Level 4 (46620) Diagnoses JOSE G positive R76.8 Long-term use of hydroxychloroquine Z79.899
== END 2023-08-25 15:21 | disposition home or self-care (01) ==
PROVIDERS: PCP Internal Medicine; Visit Provider Student in an Organized Health Care Education/Training Program
DX: R76.8 Other specified abnormal immunological findings in serum (principal); Z79.899 Other long term (current) drug therapy
CPT/HCPCS: 99214

== ENCOUNTER → 2023-08-25 14:36 | Outpatient (BNVA) | payer OTHER, SELFPAY | PROVIDERS: PCP Internal Medicine; Visit Provider Student in an Organized Health Care Education/Training Program ==

== ENCOUNTER 2023-08-26 13:09 | Outpatient (REF) | payer OTHER, SELFPAY ==
[2023-08-29 23:13] LABS: Cardiolipin IgG Ab <2.0 GPL-U/mL; Cardiolipin IgM Ab <2.0 MPL-U/mL
[2023-09-02 02:48] LABS: Beta-2 Glycoprotein IgA <2.0 U/mL (<20.0); Beta-2 Glycoprotein IgG <2.0 U/mL (<20.0); Beta-2 Glycoprotein IgM <2.0 U/mL (<20.0)
[2023-09-02 15:03] LABS: PTT (LAC) Screen 29 sec (<=40)
== END 2023-08-26 13:10 | disposition home or self-care (01) ==
LOC: HO.HHCL 13:09
PROVIDERS: Visit Provider Student in an Organized Health Care Education/Training Program
DX: D68.61 Antiphospholipid syndrome (principal)
CPT/HCPCS: 36415; 85597; 85598; 85613; 85730; 86146; 86147

== ENCOUNTER → 2023-09-27 07:50 | Outpatient (REF) | payer OTHER, SELFPAY | LOC: HO.SL 07:50 | PROVIDERS: PCP Internal Medicine; Visit Provider Nurse Practitioner Family | DX: G47.9 Sleep disorder, unspecified (principal); R53.83 Other fatigue; R06.83 Snoring; R63.5 Abnormal weight gain | CPT/HCPCS: 95806 ==

== ENCOUNTER → 2023-09-27 08:06 | Outpatient (BNV) | payer OTHER, SELFPAY | PROVIDERS: PCP Internal Medicine; Visit Provider Psychiatry & Neurology Neurology | DX: R06.83 Snoring (principal) | CPT/HCPCS: 95806 ==

== ENCOUNTER 2023-10-05 07:08 | Emergency (ER) | payer OTHER, SELFPAY ==
--- NOTE | ~2023-10-05 | US_ITS ---
EXAMINATION: Renal ultrasound CLINICAL INFORMATION: Right flank pain COMPARISON: Pelvic ultrasound from the same day TECHNIQUE: Right scale in color imaging of the right kidney FINDINGS: The right kidney measures 10.8 x 5.8 x 5.8 cm in dimension. Renal cortical thickness and echogenicity is normal. There is mild right hydronephrosis. There are 2 right renal stones, largest measuring 2 x 3 x 3 mm in the midpole. US/US renal RT IMPRESSION: Mild right hydronephrosis and small right renal stones.
--- NOTE | ~2023-10-05 | US_ITS ---
EXAMINATION: US PELVIS CLINICAL INFORMATION: Pelvic pain. Vaginal bleeding. Question passing tissue. COMPARISON: None available. TECHNIQUE: Ultrasound of the pelvis is performed using both transabdominal and transvaginal transducers along with Doppler. Transvaginal imaging is performed due to inadequate visualization transabdominally. FINDINGS: The uterus is anteverted and measures 9.8 x 5.3 x 5.9 cm in dimension. There are 2 small hypoechoic lesions in the uterus suggestive of small fibroids measuring 1.3 x 1.5 x 1.6 cm in the anterior uterine body and 0.8 x 0.7 cm and the right uterine body. Endometrial thickness is slightly thickened measuring 1.7 cm. There are nabothian cysts in the cervix. The right ovary is not seen. The left ovary is seen transabdominally only, is normal-appearing and measures 1.5 x 1 x 1.5 cm. There is no fluid in the pelvis. The right distal ureter is dilated. There are 2 adjacent stones in the right ureter or UVJ region measuring 3 x 2 x 3 mm and 4 x 2 x 4 mm. US/US pelvic and transvaginal IMPRESSION: Slightly thickened endometrium measuring 1.7 cm. Small uterine fibroids. Right ovary not seen. Normal left ovary. Dilated right distal ureter and 2 distal right ureteral or UVJ stones.
[2023-10-05 07:21] VITALS: BP 124/76; PULSE 103; RESP 16; TEMP 36.2; O2SAT 100; BMI 35.0
[2023-10-05 07:42] LABS: MANUAL DIFF FLAG NO
[2023-10-05 07:44] LABS: Basophils Percent Auto 0.3 % (0-2); Eosinophils Absolute Auto 0.1 X10*3/uL (0.0-0.4); Eosinophils Percent Auto 1.6 % (0-4); Hematocrit 36.4 % (37.0-47.0); Hemoglobin 12.7 g/dl (12.0-16.0); Imm Gran Abs Auto 0.05 X10*3/uL (0.00-0.03); Imm Gran Pct Auto 0.7 % (0.0-0.4); Lymphocytes Percent Auto 29.6 % (20-40); Mean Corpuscular HGB Conc 34.9 g/dl (31.0-35.0); Mean Corpuscular Hemoglobin 30.2 pg (27.0-33.0); Mean Corpuscular Volume 86.5 fL (80.0-98.0); Mean Platelet Volume 9.6 fL (9.4-12.3); Monocytes Absolute Auto 0.4 X10*3/uL (0.1-1.2); Monocytes Percent Auto 6.4 % (2-11); Neutrophils Absolute Auto 4.1 x10*3/uL (2.0-8.3); Neutrophils Percent Auto 61.4 % (45-73); Platelet Count 280 X10*3/uL (160-400); Red Blood Count 4.21 X10*6/uL (4.20-5.50); Red Cell Distribution Width 12.5 % (11.0-16.0); White Blood Count 6.7 X10*3/uL (4.8-10.8)
[2023-10-05 07:45] LABS: Appearance Urine Cloudy; Color Urine Yellow; Glucose Urine UA Negative (Negative); Leukocyte Esterase Urine Small (1+) (Negative); Nitrite Urine Negative (Negative); PH 6.5 (5.0-9.0); UMIC TRIGGER UACC YES; Urine Blood Small (1+) (Negative); Urine Ketones Negative (Negative); Urine Protein Trace mg/dL (Neg-Trace)
[2023-10-05 07:46] LABS: UPreg QC Valid YES; Urine Pregnancy NEGATIVE (NEGATIVE)
[2023-10-05 07:49] LABS: Bacteria Urine None Seen (None Seen); UACC Culture Trigger YES
[2023-10-05 07:59] LABS: Alanine Aminotransferase 42 U/L (0-31); Albumin Level 3.5 g/dL (3.5-5.0); Alkaline Phosphatase 88 U/L (39-117); Anion Gap 8 (12-20); Aspartate Amino Transferase 26 U/L (5-31); Bilirubin Total 0.4 mg/dL (0.0-1.0); Blood Urea Nitrogen 13 mg/dL (9-16); Calcium 9.3 mg/dL (8.4-10.2); Carbon Dioxide 28 mmol/L (22-29); Chloride 106 mmol/L (96-108); Creatinine Clr Calc Pharmacy 82.8; Estimated Glomerular Filt Rate > 60; Glucose Random 103 mg/dL (60-115); Potassium 3.8 mmol/L (3.3-5.1); Sodium 138 mmol/L (135-145); Total Protein 7.3 g/dL (6.5-8.0)
[2023-10-05 09:58] VITALS: BP 133/62; PULSE 82; RESP 18; TEMP 36.6; O2SAT 99
--- NOTE | 2023-10-05 10:32 | ED.ABDPAIN ---
HPI - Abdominal Pain General Chief Complaint: Abdominal Pain Stated Complaint: Lower abd pain, vaginal pain Time Seen by Provider: 10/05/23 09:03 Source: patient, RN notes reviewed and old records reviewed Mode of arrival: ambulatory History of Present Illness ED Provider: Ingrid Mason PA-C HPI narrative: 43-year-old female with a past medical history of Chiari 1 malformation, endometriosis, IBS, GERD, presenting to the ED complaining of suprapubic/pelvic pain, right flank pain and vaginal spotting with passing ?tissue x1 week. Admits was seen at urgent care last week and prescribed antibiotics for UTI, currently taking Levaquin. States was initially on Cefpodoxime however was discontinued by provider. Also reports fevers last week. Denies nausea, vomiting, diarrhea/constipation, vaginal discharge, concern for STI, dysuria/heamturia. LMP 09/06 Related Data Home Medications ?Medication ?Instructions ?Recorded ?Confirmed pantoprazole 40 mg tablet,delayed 40 mg PO DAILY 02/01/22 08/04/23 release Previous Rx's ?Medication ?Instructions ?Recorded ibuprofen 600 mg tablet 600 mg PO Q6H PRN fever or pain 12/28/22 #30 tabs magnesium oxide 400 mg (241.3 mg 400 mg PO BEDTIME 30 days #30 tabs 06/09/23 magnesium) tablet riboflavin (vitamin B2) 400 mg 400 mg PO DAILY 30 days #30 tabs 06/09/23 tablet sumatriptan succinate 100 mg tablet 50 - 100 mg (0.5 - 1 x 100 mg) PO 08/04/23 .COMPLEX PRN migraine headache 30 days #12 tabs hydroxychloroquine 200 mg tablet 200 mg PO BID #60 tabs 08/25/23 hydrocodone 5 mg-acetaminophen 325 1 tab PO Q8H PRN pain, severe 3 10/05/23 mg tablet days #9 tabs naproxen 375 mg tablet 375 mg PO BID 10 days #20 tabs 10/05/23 tamsulosin 0.4 mg capsule (Flomax) 0.4 mg PO DAILY #14 caps 10/05/23 Allergies Allergy/AdvReac Type Severity Reaction Status Date / Time No Known Allergies [NKA] Allergy Mild NKA Verified 10/05/23 07:24 Review of Systems Review of Systems Constitutional: + Fever, No Chills, No Fatigue, No Malaise Cardiovascular: No Chest Pain, No SOB Respiratory: No Cough, No Dyspnea Gastrointestinal: No Nausea, No Vomiting, No Diarrhea, No Constipation, + Abdominal pain Genitourinary: + irregular bleeding, No Dysuria, No Urinary Frequency, No Hematuria, No Urinary Incontinence/retention, +Flank Pain, No Urinary Flow Changes, No Hesitancy Musculoskeletal: No joint pain, No Myalgias, No Joint Swelling Skin: No Skin Lesions, No rash Neuro: No Weakness Yes all other systems are reviewed and are negative Constitutional: Reports as per [facility] Past Medical History Attestation statement: The following information was validated with the patient. Source: old records reviewed Medical History Microscopic hematuria Alopecia areata GERD (gastroesophageal reflux disease) Endometriosis IBS (irritable bowel syndrome) Family History Family History Mother No problems noted. 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 Physical Exam ED Vital Signs: Vital Signs - 24 hr 10/05/23 07:21 10/05/23 09:58 10/05/23 12:21 Temperature 97.1 F 97.9 F 97.9 F Pulse Rate 103 H 82 82 Respiratory Rate 16 18 16 Blood Pressure 124/76 133/62 120/64 Pulse Oximetry 100 99 99 Oxygen Delivery Method Room Air Room Air Room Air 10/05/23 14:09 Temperature 97.6 F Pulse Rate 77 Respiratory Rate 16 Blood Pressure 112/68 Pulse Oximetry 97 Oxygen Delivery Method Room Air BMI result Body Mass Index 35.0 Const General: cooperative, healthy appearing and no acute distress Orientation/consciousness: patient oriented x3 Limitations: no limitations HENMT Head: Yes normal to inspection and Yes atraumatic Ears: hearing grossly normal bilaterally General nose exam: Normal external nose present Face and sinus: Yes normal facial exam Eyes General: appearance normal, both eyes and all related structures EOM: EOMs intact bilaterally Neck Neck: Yes normal visual inspection and Yes no meningeal signs Resp Effort & Inspection: normal respiratory effort and no respiratory distress Auscultation: clear to auscultation bilaterally Cardio Rate: regular rate Heart sounds: S1 normal heart sound present and S2 normal heart sound present GI Inspection: Yes normal to inspection Palpation (GI): Soft to palpation, Tenderness to palpation present (GI) suprapubicly, no guarding and not rigid General: Yes no CVA tenderness External Female Exam: normal external appearance Speculum Exam - Vagina: no lacerations, vaginal bleeding and No tissue present in vagina Speculum Exam - Cervix: Abnormal cervical discharge present bloody and white, Cervical lesion present (At 12:00 o'clock position, tender to palpation) and Other cervical findings present (Friable cervix) Bimanual Exam- Adnexa, other: normal adnexae and no masses OB/external & speculum: vaginal bleeding; no tissue noted in vagina Back/Spine/Pelvis Back: no CVA tenderness Skin Rashes: no rashes Wounds: no wounds Neuro General: patient oriented x3, tone normal and no meningeal signs Cranial nerves: Yes CN's II-XII intact bilaterally Gait exam (Neuro): Normal gait present Extrem General: Yes normal to inspection Course Course Course Narrative: -1050--labs reassuring. UA contaminated however with blood, positive leuk esterase and 11-20 WBC. >> patient currently on Levaquin. 1323--US pelvic and transvaginal IMPRESSION: Slightly thickened endometrium measuring 1.7 cm. Small uterine fibroids. Right ovary not seen. Normal left ovary. Dilated right distal ureter and 2 distal right ureteral or UVJ stones. US renal RT IMPRESSION: Mild right hydronephrosis and small right renal stones. > will consult Urology, Dr. Cabrera -1417--urology recommended outpatient management with Flomax, naproxen, and pain medication. They will call to schedule an appointment. Patient is agreeable with plan Results discussed with patient including worrisome signs and symptoms and strict return precautions, and when to return to the emergency department. They verbalized understanding and feel safe for discharge at this time. Medical Decision Making Medical Decision Making MDM Narrative: 43-year-old female with a past medical history of Chiari 1 malformation, endometriosis, IBS, GERD, presenting to the ED complaining of suprapubic/pelvic pain, right flank pain and vaginal spotting with passing ?tissue x1 week. On exam vital signs stable, NAD, nontoxic appearing, abdomen soft with suprapubic tenderness, on pelvic exam vaginal bleeding/discharge noted without active hemorrhage. Cervical lesion appreciated with tenderness. Friable cervix. No adnexal mass/tenderness. No CMT. Concern for UTI vs ovarian cyst vs menstruation vs vs ectopic. Pyelo/renal stone on differential however lower without CVAT. Rule out torsion, although lower suspicion. Lower suspicion for appendicitis/diverticulitis. Rule STI. Plan: Labs, UA, STI testing, pelvic and renal ultrasound, re-evaluate Please refer to course for remaining clinical decision making, interpretation of labs/imaging results, and discussions with consultants and/or family members. Differential Diagnosis Differential Diagnoses: The differential diagnosis associated with the presentation includes As above Admission/Observation Consideration of admission/observation: Escalation of care including admission/observation considered Consult Healthcare Provider Management of the patient was discussed with: Dinkey Dispatcher (urology) Lab Data MDM Lab Attestation statement: I reviewed the patient's lab results. 10/05/23 07:36 10/05/23 07:36 Labs: Lab Results 10/05/23 10/05/23 Range/Units 07:36 10:26 WBC 6.7 (4.8-10.8) X10*3/uL RBC 4.21 (4.20-5.50) X10*6/uL Hgb 12.7 (12.0-16.0) g/dl Hct 36.4 L (37.0-47.0) % MCV 86.5 (80.0-98.0) fL MCH 30.2 (27.0-33.0) pg MCHC 34.9 (31.0-35.0) g/dl RDW 12.5 (11.0-16.0) % Plt Count 280 (160-400) X10*3/uL MPV 9.6 (9.4-12.3) fL Immature Gran % (Auto) 0.7 H (0.0-0.4) % Neut % (Auto) 61.4 (45-73) % Lymph % (Auto) 29.6 (20-40) % [place] % (Auto) 6.4 (2-11) % Eos % (Auto) 1.6 (0-4) % Baso % (Auto) 0.3 (0-2) % Lymph # (Auto) 2.0 (1.2-4.9) X10*3/uL [place] # (Auto) 0.4 (0.1-1.2) X10*3/uL Eos # (Auto) 0.1 (0.0-0.4) X10*3/uL Baso # (Auto) 0.0 (0.0-0.2) X10*3/uL Abs Immat Gran (auto) 0.05 H (0.00-0.03) X10*3/uL Absolute Neuts (auto) 4.1 (2.0-8.3) x10*3/uL Absolute Nucleated RBC 0.000 (0.0-0.012) X10*3/uL Nucleated RBC % (auto) 0.0 (0.0-0.2) /100WBC Sodium 138 (135-145) mmol/L Potassium 3.8 (3.3-5.1) mmol/L Chloride 106 (96-108) mmol/L Carbon Dioxide 28 (22-29) mmol/L Anion Gap 8 L (12-20) BUN 13 (9-16) mg/dL Creatinine 0.81 (0.5-1.4) mg/dL Estim Creat Clear Calc 82.8 Estimated GFR > 60 Random Glucose 103 (60-115) mg/dL Calcium 9.3 (8.4-10.2) mg/dL Total Bilirubin 0.4 (0.0-1.0) mg/dL AST 26 (5-31) U/L ALT 42 H (0-31) U/L Alkaline Phosphatase 88 (39-117) U/L Total Protein 7.3 (6.5-8.0) g/dL Albumin 3.5 (3.5-5.0) g/dL Urine Color Yellow Urine Appearance Cloudy Urine pH 6.5 (5.0-9.0) Ur Specific [place] 1.020 (1.005-1.025) Urine Protein Trace (Neg-Trace) mg/dL Urine Glucose (UA) Negative (Negative) mg/dL Urine Ketones Negative (Negative) mg/dL Urine Blood Small (1+) H (Negative) Urine Nitrite Negative (Negative) Ur Leukocyte Esterase Small (1+) H (Negative) Urine RBC 11-20 H (0-2) /HPF Urine WBC 11-20 H (0-5) /HPF Ur Squamous Epith Cells 6-10 (0-2) /HPF Urine Bacteria None Seen (None Seen) Hyaline Casts 3-5 (0-2) /LPF Urine Test NEGATIVE (NEGATIVE) Chlam trachomat DNA PCR NOT DETECTED (Not Detect.) N.gonorrhoeae DNA (PCR) NOT DETECTED (Not Detect.) T. vaginalis (PCR) NOT DETECTED (Not Detect) Bact Vaginosis (PCR) NEGATIVE (Negative) C. krusei/glabrata (PCR) NOT DETECTED (Not Detect) Gena group (PCR) NOT DETECTED (Not Detect) Independent Interpretation I performed an independent interpretation of an: Ultrasound Radiology Impression Discussion of test interpretation with radiology: I have reviewed the radiologist's reading. External Record Review External record reviewed: Inpatient record, Office record, Outpatient record, Prior outpatient labs, Prior outpatient radiology, Primary care record and Outside ED record Tests considered The following testing was considered but not selected: As above Prescription Management I considered prescription management with: Pain Medication and Antibiotic Medications Administered Discontinued Medications Generic Name Dose Route Start Last Admin Trade Name Freq PRN Reason Stop Dose Admin Ketorolac Tromethamine 30 mg 10/05/23 12:22 10/05/23 12:27 Ketorolac Tromethamine 30 Mg/Ml Vial IM 10/05/23 12:23 30 mg ONCE ONE Administration Tamsulosin HCl 0.4 mg 10/05/23 13:25 10/05/23 14:03 Tamsulosin Hcl 0.4 Mg Capsule PO 10/05/23 13:26 0.4 mg ONCE ONE Administration Critical Care Time Critical Care Time Critical Care Time: Yes Total Critical Care Time: 35 Attestation: I have personally provided critical care time exclusive of time spent on separately billable procedures. Time includes review of lab data, radiology results, discussion with consultants, and monitoring for potential decompensation. Intervention performed as documented. Discharge Plan Discharge Clinical Impression: Calculus of ureterovesical junction (UVJ), Thickened endometrium, Uterine fibroid, Nabothian cyst Patient Disposition: Home, Self-Care Instructions: Ureteral Stones (ED) Additional Instructions: Your blood work is reassuring. Your ultrasound showed stones in your right distal ureter. Urology said you can be managed outpatient with pain medication, Flomax, and they will call to schedule an appointment If her pain persists or becomes unbearable, you are unable to urinate have fever return to the ED Flomax while dilated ureter. Naproxen as anti-inflammatory/pain medication. Vicodin is an opiate pain medication, take only when pain is severe for the next 3 days. Your ultrasound also showed a thickened endometrium, uterine fibroids and some cervical cysts. Please follow-up with her OBGYN Continue taking previously prescribed antibiotics Prescriptions: New naproxen 375 mg tablet 375 mg PO BID 10 Days Qty: 20 0RF hydrocodone-acetaminophen 5-325 mg tablet 1 tab PO Q8H PRN (Reason: pain, severe) 3 Days Qty: 9 0RF Rx Instructions: Partial Fill upon patient request. tamsulosin [Flomax] 0.4 mg capsule 0.4 mg PO DAILY Qty: 14 0RF No Action ibuprofen 600 mg tablet 600 mg PO Q6H PRN (Reason: fever or pain) Qty: 30 0RF pantoprazole 40 mg tablet,delayed release (DR/EC) 40 mg PO DAILY riboflavin (vitamin B2) 400 mg tablet 400 mg PO DAILY 30 Days Qty: 30 6RF magnesium oxide 400 mg (241.3 mg magnesium) tablet 400 mg PO BEDTIME 30 Days Qty: 30 6RF Rx Instructions: may hold for loose stools hydroxychloroquine 200 mg tablet 200 mg PO BID Qty: 60 2RF sumatriptan succinate 100 mg tablet 50 - 100 mg PO .COMPLEX PRN (Reason: migraine headache) 30 Days Qty: 12 6RF Rx Instructions: 50 - 100 mg orally at onset of headache, may repeat in 2 hrs PRN; max 2 tabs per day or 4 tabs/week (may take with Ibuprofen) Referrals: [facility] Urology Services [Provider Group] - 5 days [facility] Women's Services [Provider Group] Print Language: Comoran
[2023-10-05 11:46] LABS: Bacterial Vaginosis PCR NEGATIVE (Negative); Candida Group PCR NOT DETECTED (Not Detect); Candida glab krusei PCR NOT DETECTED (Not Detect); Trichomonas vaginalis PCR NOT DETECTED (Not Detect)
[2023-10-05 12:19] LABS: CT PCR NOT DETECTED (Not Detect.); NG PCR NOT DETECTED (Not Detect.)
[2023-10-05 12:21] VITALS: BP 120/64; PULSE 82; RESP 16; TEMP 36.6; O2SAT 99
[2023-10-05] MEDS: Ketorolac Tromethamine 30 MG/ML VIAL IM (12:27)
[2023-10-05] MEDS: Tamsulosin HCL 0.4 MG CAPSULE PO (14:03)
[2023-10-05 14:09] VITALS: BP 112/68; PULSE 77; RESP 16; TEMP 36.4; O2SAT 97
[2023-10-05 14:40] VITALS: BP 112/68; PULSE 77; RESP 16; TEMP 36.4; O2SAT 97
== END 2023-10-05 14:42 | disposition home or self-care (01) ==
PROVIDERS: Physician Assistant; Emergency Provider Emergency Medicine Emergency Medical Services; PCP Internal Medicine
DX: N20.1 Calculus of ureter (principal); R93.89 Abnormal findings on diagnostic imaging of other specified body structures; D25.9 Leiomyoma of uterus, unspecified; N88.8 Other specified noninflammatory disorders of cervix uteri; R10.2 Pelvic and perineal pain; G93.5 Compression of brain; N80.9 Endometriosis, unspecified; K58.9 Irritable bowel syndrome, unspecified
CPT/HCPCS: 0352U; 0353U; 36415; 76775; 76830; 76856; 80053; 81001; 81025; 85025; 87086; 96372; 99284; J1885

== ENCOUNTER 2024-01-25 07:55 | Outpatient (AMB) | payer OTHER, SELFPAY ==
--- NOTE | 2024-01-25 07:56 | MHC.OFFVIS ---
Vital Signs 01/25/24 07:57 Height 4 ft 11 in Weight 176 lb 4 oz BMI 35.6 BP 152/80 H Blood Pressure Location Rt brachial Position Sitting Respiration 16 Pulse 84 Pulse Source Pulse Oximeter Pulse Oximetry (%) 99 Oxygen Delivery Method Room Air Intake Visit Reasons: Follow up Migraine Intake Note: Pt presents tot he office for a 6 month follow up for migraines. [employer] Required: No Allergies No Known Allergies [NKA] Allergy (Mild, Verified 01/25/24 07:57) NKA Medication List - Last Reconciled 01/25/24 by LES Jerome hydrocodone-acetaminophen 5-325 mg 1 tab PO Q8H PRN 3 days hydroxychloroquine TAKE 1 TABLET BY MOUTH TWICE A DAY ibuprofen 600 mg PO Q6H PRN magnesium oxide 400 mg PO BEDTIME 30 days naproxen 375 mg PO BID 10 days pantoprazole 40 mg PO DAILY riboflavin (vitamin B2) 400 mg PO DAILY 30 days sumatriptan succinate 50 - 100 mg orally at onset of headache, may repeat in 2 hrs PRN; max 2 tabs per day or 4 tabs/week (may take with Ibuprofen) 30 days tamsulosin (Flomax) 0.4 mg PO DAILY HPI Comments Details: 44-yr-old female presents for f/u visit of migraine. She has had f/u w/ rheumatology, though missed her last f/u w/ Dr Xie. She was started on Plaquenil on 08/25/23 for mild SLE, however she stopped this in early September as she was not sure which medications were causing which symptoms. She also has been having bouts of couple of a days all of a sudden, feeling like her body is overstimulated, almost like being anxious but does not feel anxious and intermittent burning pain sensations worst in her ribs, but can be in her arms, ankles. Her menstrual cycle has been a bit more irregular- spotting more. She has a [facility] appt coming up. Her HST did not show sleep apnea. She does endorse lifelong frequent nocturnal arousals and mild intermittent RLS s/s, which she is not bothered by. Pt asks about the pituitary region cyst, wonders if this is why she cannot lose weight. Pt denies diplopia, vision changes. Pt reports her migraines are about the same as before. She may not have a migraine for 2 weeks, but then out of the blue she will have severe debilitating migraine attacks. She has had to miss work last for the more severe migraine. She stopped topiramate at the beginning of September d/t mood changes- caused anger/irritability and worsened her restless leg s/s. Sumatriptan stopped working. Naratriptan- effect varies. She also had a [facility] [place] for kidney stones in mid-September. Baseline headache characteristics- Varies, Mod-Severe, throbbing, stabbing starting in bilateral lower occipital region and moves into bilateral temples/frontal region and then the whole head a/w photophobia, phonophobia, nausea, vomiting if severe, not right in space dizziness, brain fog, fatigue, worsening left facial paresthesias, speech slurring, activity intolerance. 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 F/u pituitary studies lab work was WNL. Interval work-up: 10/10/2023, HST showed AHI < 1 hr, average SpO2 93%, w/ O2 bulmaro 78% (however SpO2 < 88% was recorded at 0 min). Previous work-up: 05/02/22 06/10/23 07/27/23 12:52 09:52 07:36 C-Reactive Protein 0.13 C-React Prot High Sens 2.4 Vitamin B12 464 Folate 8.7 TSH 1.20 Free T4 0.97 FSH 2.3 Luteinizing Hormone 2.3 Prolactin 7.9 Beta HCG, Quant < 2 Rheumatoid Factor < 13.0 JOSE G Screen POSITIVE A JOSE G Titer 1:80 H JOSE G Titer 2 1:80 H JOSE G Pattern A JOSE G Pattern 2 A 07/06/23, MR/MR head/brain wo/w con IMPRESSION: There is an expansile partially empty sella. 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 04/29/2022, Lumbar Puncture: OP-19 cmH2O w/ normal CSF studies. [facility] Medical History Microscopic hematuria Alopecia areata GERD (gastroesophageal reflux disease) Endometriosis IBS (irritable bowel syndrome) Family History Mother No problems noted. 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 Physical Exam Vital Signs: Last Vital Signs Pulse 84 01/25/24 07:57 Resp 16 01/25/24 07:57 BP 152/80 H 01/25/24 07:57 Pulse Ox 99 01/25/24 07:57 Oxygen Delivery Method Room Air 01/25/24 07:57 BMI result Body Mass Index 35.6 Const General: cooperative and no acute distress Orientation/consciousness: patient oriented x3 Resp Effort & Inspection: normal respiratory effort and able to speak in complete sentences Neuro General: patient oriented x3 Cranial nerves: Yes CN's II-XII intact bilaterally Cognition (Neuro): normal cognition Psych Appearance: grossly normal Mental Status: mental status grossly normal Speech and movement: Normal speech and movement present Affect: normal affect Attitude: cooperative Assessment & Plan Assessment & Plan (1) Migraine: Comment: new onset headache w/ migrainous s/s, as well as worsening left facial paresthesias and speech difficulties- ? IIH, ? migraine w/ aura, ? headache attack exacerbating underlying trigeminal neuropathy process Code(s): G43.909 - Migraine, unspecified, not intractable, without status migrainosus Category: Medical (2) Facial paresthesia: Comment: left temporal/jaw region. Not a/w facial pain, bruxism, or painful chewing. ? trigeminal neuropathic process. Code(s): R20.2 - Paresthesia of skin Category: Medical (3) Fatigue: Code(s): R53.83 - Other fatigue Category: Medical Plan Pt advised to f/u w/ rheumatology to discuss resuming plaquenil, and advised as she will require close monitoring d/t the new SLE dx. ? if her bouts of burning pain and feeling as if her body is overstimulated is r/t her SLE. Will request endocrinology consult for pituitary region cyst. F/u brain/pituitary MRI in June 2024. Reviewed HST- no evidence of sleep apnea. Could consider in-lab PSG to assess for PLMS, however pt is not bothered by her sleep or RLS s/s at this time. Will monitor. Future considerations- brain MRA- to assess for left TN vascular compression. EEG for cognitive s/s. ? For overall headache management: Discussed importance of good self-care, including but not limited to maintaining a healthy diet, adequate fluid intake, adequate sleep, and engaging in regular physical activity. ? For acute headache treatment: Continue Ibuprofen 400-600mg prn. Stop Sumatriptan 100mg- lost efficacy. May continue naratriptan 2.5mg prn for now. As naratriptan is not always effective, Trial Rimegepant ODT (Nurtec ODT) 75mg, 1 tab every other day. Max of 1 tabs (75mg) per 24 hours. May adjunct with OTC Tylenol 650mg q 4 hours, Ibuprofen 600mg q 6 hours, or Naproxen 440mg q 12 hrs prn. Do not take w/ Butalbital (Fioricet or Fiorinal). Potential adverse effects, include but are not limited to fatigue, nausea, dry mouth, constipation. Previous acute migraine medication trials: Fioricet- ineffective. Sumatriptan 100mg- lost efficacy. Acute migraine medication contraindications: None at this time ? For headache prevention medication: Continue Riboflavin 400mg qam Continue Magnesium 400mg qhs Stop Topiramate- caused mood changes, taste changes, may have contributed to kidney stone development in September 2023. Previous migraine prevention medication trials: Topiramate- caused mood changes, taste changes, may have contributed to kidney stone development in September 2023. Migraine prevention medication contraindications: Topiramate- d/t kidney stones. Pt to follow-up in 6 months or sooner prn. Orders: Referrals Endocrinology Referral E23.6 - Other disorders of pituitary gland Medications: New rimegepant (Nurtec ODT) 75 mg PO ONCE PRN 16 tabs 3RF migraine headache 30 days MDD 1 tab Coding Level of Care Code Est Pt Level 4 (69016) Diagnoses Migraine G43.909 Facial paresthesia R20.2 Fatigue R53.83
[2024-01-25 07:57] VITALS: BP 152/80; PULSE 84; RESP 16; O2SAT 99; BMI 35.6
== END 2024-01-25 08:49 | disposition home or self-care (01) ==
PROVIDERS: PCP Internal Medicine; Visit Provider Nurse Practitioner Family
DX: G43.909 Migraine, unspecified, not intractable, without status migrainosus (principal); R20.2 Paresthesia of skin; R53.83 Other fatigue
CPT/HCPCS: 99214

== ENCOUNTER → 2024-01-25 07:55 | Outpatient (BNVA) | payer OTHER, SELFPAY | PROVIDERS: PCP Internal Medicine; Visit Provider Nurse Practitioner Family | DX: E23.6 Other disorders of pituitary gland (principal); R20.2 Paresthesia of skin; R63.5 Abnormal weight gain; R51.9 Headache, unspecified; G93.5 Compression of brain; F09 Unspecified mental disorder due to known physiological condition; G43.909 Migraine, unspecified, not intractable, without status migrainosus; R06.83 Snoring; R53.83 Other fatigue; G47.9 Sleep disorder, unspecified ==

== ENCOUNTER 2024-05-02 07:45 | Outpatient (AMB) | payer OTHER, SELFPAY ==
--- NOTE | 2024-05-02 07:49 | MHC.OFFVIS ---
Vital Signs 05/02/24 07:51 Height 4 ft 11 in Weight 176 lb 9.444 oz BMI 35.7 BP 102/68 Blood Pressure Location Rt brachial Position Sitting Pulse 81 Pulse Source Pulse Oximeter Intake Visit Reasons: Other disorders of pituitary gland Intake Note: New patient internally referred for Pituitary Gland. Post Doctoral Researcher Required: No Accompanied by: Self / Same As Patient Allergies No Known Allergies [NKA] Allergy (Mild, Verified 05/02/24 07:52) NKA Medication List - Last Reconciled 05/02/24 by Andre Aguayo MD hydrocodone-acetaminophen 5-325 mg 1 tab PO Q8H PRN 3 days hydroxychloroquine TAKE 1 TABLET BY MOUTH TWICE A DAY ibuprofen 600 mg PO Q6H PRN magnesium oxide 400 mg PO BEDTIME 30 days naproxen 375 mg PO BID 10 days pantoprazole 40 mg PO DAILY riboflavin (vitamin B2) 400 mg PO DAILY 30 days rimegepant (Nurtec ODT) 75 mg PO ONCE PRN 30 days MDD 1 tab sumatriptan succinate 50 - 100 mg orally at onset of headache, may repeat in 2 hrs PRN; max 2 tabs per day or 4 tabs/week (may take with Ibuprofen) 30 days tamsulosin (Flomax) 0.4 mg PO DAILY HPI Comments Details: This is a 44-year-old female sent to endocrinology for evaluation of 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 First learned few yrs ago. Never saw endo before. Workup done so far showed normal TFTs, normal prolactin. MRI did not show any impingement of the optic chiasm or extension into the cavernous sinus. The patient c/o headaches variable in intensity no loss of vision. She denies breast discharge. Menses have been nl She denies any symptoms of adrenal insufficiency TECHNIQUE: Multiplanar multisequence MR imaging of the brain was obtained without and following the administration of 4 of Gadavist without complication with dedicated IAC pulse series. FINDINGS: There is an expansile partially empty sella. 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 The infundibulum remains midline. No mass effect on the optic nerve apparatus. The cavernous sinuses are symmetric and normal. There is no pathologic intracranial enhancement. No acute infarct on diffusion-weighted imaging. No hydrocephalus, extra-axial surface collection, or herniation. Cerebellar tonsils are normally positioned. Craniocervical junction is normal. Osseous marrow signal intensity remains homogeneous. No significant soft tissue abnormality is appreciated. MR/MR head/brain wo/w con IMPRESSION: There is an expansile partially empty sella. 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 [facility] Medical History (Updated 01/25/24 @ 08:41 by LES Jerome) Microscopic hematuria Alopecia areata GERD (gastroesophageal reflux disease) Endometriosis IBS (irritable bowel syndrome) Surgical History (Updated 05/02/24 @ 07:52 by MARINA Haywood) No pertinent past surgical history Family History Mother No problems noted. 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 Thyroid gland is normal size weighs about 15 g. There are no thyroid nodules palpated. Visual field is intact by gross confrontation Assessment & Plan Assessment & Plan (1) Empty sella: Code(s): E23.6 - Other disorders of pituitary gland Category: Medical Plan: This is a 44-year-old female with a history of incidentally discovered partial empty sella syndrome and a possible Rathke's cyst 6 mm. Both are probably incidental findings not of clinical significance. We will need to rule out deficiency of cortisol or growth hormone. We will check a.m. cortisol level as well as IGF-1. Although Neurosurgery is probably not warranted, would consider getting a neurosurgical consult ideally at [facility] if insurance will allow. Orders: Orders IGF-1 (Somatomedin C) Today E23.6 - Other disorders of pituitary gland Cortisol Random Today E23.6 - Other disorders of pituitary gland Referrals Endocrinology Referral E23.6 - Other disorders of pituitary gland Coding Level of Care Code New Pt Level 4 (78461) Diagnoses Empty sella E23.6
[2024-05-02 07:51] VITALS: BP 102/68; PULSE 81; BMI 35.7
== END 2024-05-02 08:28 | disposition home or self-care (01) ==
PROVIDERS: PCP Internal Medicine; Visit Provider Internal Medicine Endocrinology, Diabetes & Metabolism
DX: E23.6 Other disorders of pituitary gland (principal)
CPT/HCPCS: 99204

== ENCOUNTER 2024-05-02 07:45 | Outpatient (REF) | payer OTHER, SELFPAY ==
[2024-05-02 11:05] LABS: Cortisol Random 6.1 ug/dL
[2024-05-10 15:28] LABS: IGF-1 (Somatomedin C) 124 ng/mL (52-328); IGF-1 Z Score (Female) -0.3 SD (-2.0 - +2.0)
== END 2024-05-02 07:46 | disposition home or self-care (01) ==
LOC: HO.LAB 07:45
PROVIDERS: PCP Internal Medicine; Visit Provider Internal Medicine Endocrinology, Diabetes & Metabolism
DX: E23.6 Other disorders of pituitary gland (principal)
CPT/HCPCS: 36415; 82533; 84305

== ENCOUNTER 2024-05-04 08:12 | Outpatient (REF) | payer OTHER, SELFPAY ==
[2024-05-04 11:38] LABS: MANUAL DIFF FLAG NO
[2024-05-04 11:50] LABS: Basophils Percent Auto 0.2 % (0-2); Eosinophils Absolute Auto 0.1 X10*3/uL (0.0-0.4); Hematocrit 38.3 % (37.0-47.0); Hemoglobin 13.1 g/dl (12.0-16.0); Imm Gran Abs Auto 0.01 X10*3/uL (0.00-0.03); Imm Gran Pct Auto 0.2 % (0.0-0.4); Lymphocytes Absolute Auto 1.7 X10*3/uL (1.2-4.9); Lymphocytes Percent Auto 32.9 % (20-40); Mean Corpuscular HGB Conc 34.2 g/dl (31.0-35.0); Mean Corpuscular Volume 87.8 fL (80.0-98.0); Mean Platelet Volume 10.9 fL (9.4-12.3); Monocytes Absolute Auto 0.3 X10*3/uL (0.1-1.2); Monocytes Percent Auto 5.6 % (2-11); Neutrophils Absolute Auto 3.1 x10*3/uL (2.0-8.3); Neutrophils Percent Auto 60.1 % (45-73); Platelet Count 266 X10*3/uL (160-400); Red Blood Count 4.36 X10*6/uL (4.20-5.50); Red Cell Distribution Width 12.5 % (11.0-16.0); White Blood Count 5.2 X10*3/uL (4.8-10.8)
[2024-05-04 12:25] LABS: Erythrocyte Sedimentation Rate 11 MM/HR (0-20)
[2024-05-04 12:39] LABS: Alanine Aminotransferase 22 U/L (0-31); Albumin Level 3.7 g/dL (3.5-5.0); Alkaline Phosphatase 76 U/L (39-117); Anion Gap 8 (12-20); Aspartate Amino Transferase 24 U/L (5-31); Bilirubin Total 0.5 mg/dL (0.0-1.0); Blood Urea Nitrogen 12 mg/dL (9-16); C Reactive Protein 0.25 mg/dL (< or = 0.50); Calcium 8.8 mg/dL (8.4-10.2); Carbon Dioxide 26 mmol/L (22-29); Chloride 109 mmol/L (96-108); Estimated Glomerular Filt Rate > 60; Glucose Random 93 mg/dL (60-115); Potassium 3.9 mmol/L (3.3-5.1); Sodium 139 mmol/L (135-145); Total Protein 7.3 g/dL (6.5-8.0)
[2024-05-07 16:38] LABS: Anti DNA DS Antibody <1 IU/mL
[2024-05-09 15:18] LABS: DNAds, Crithidia Antibody Negative (Negative)
== END 2024-05-04 08:13 | disposition home or self-care (01) ==
LOC: HO.HHCL 08:12
PROVIDERS: Visit Provider Student in an Organized Health Care Education/Training Program
DX: M32.9 Systemic lupus erythematosus, unspecified (principal)
CPT/HCPCS: 36415; 80053; 85025; 85652; 86140; 86160; 86225; 86255

== ENCOUNTER 2024-08-02 09:52 | Outpatient (AMB) | payer OTHER, SELFPAY ==
--- NOTE | 2024-08-02 10:11 | A.OFFVIS_ITS ---
Vital Signs 08/02/24 10:12 Height 4 ft 11 in Weight 174 lb BMI 35.1 Pulse 79 Pulse Source Pulse Oximeter Pulse Oximetry (%) 97 Oxygen Delivery Method Room Air Intake Visit Reasons: Follow UP 6mo Intake Note: Patient following up on new med trial and endo referral Dr. Aguayo Allergies No Known Allergies [NKA] Allergy (Mild, Verified 08/02/24 10:17) NKA Medication List - Last Reconciled 08/02/24 by LES Jerome hydrocodone-acetaminophen 5-325 mg 1 tab PO Q8H PRN 3 days hydroxychloroquine TAKE 1 TABLET BY MOUTH TWICE A DAY ibuprofen 600 mg PO Q6H PRN magnesium oxide 400 mg PO BEDTIME 30 days naproxen 375 mg PO BID 10 days pantoprazole 40 mg PO DAILY riboflavin (vitamin B2) 400 mg PO DAILY 30 days rimegepant (Nurtec ODT) 75 mg PO ONCE PRN 30 days MDD 1 tab sumatriptan succinate 50 - 100 mg orally at onset of headache, may repeat in 2 hrs PRN; max 2 tabs per day or 4 tabs/week (may take with Ibuprofen) 30 days tamsulosin (Flomax) 0.4 mg PO DAILY HPI Comments Details: 44-yr-old female presents for f/u visit of migraine. She is scheduled to see rheumatology in October. She is still not taking Plaquenil She also has been having days of skin burning, internal burning, internally activated. Her menstrual cycle has been a bit more irregular- spotting more. 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 Her HST did not show sleep apnea. She does endorse lifelong frequent nocturnal arousals and mild intermittent States her RLS s/s are mild. She had endocrinology consult- was advised [place] [facility] [place] this is outside of her insurance's network. Pt denies diplopia, vision changes. Pt reports her migraines are about the same as before. She may not have a migraine for 2 weeks, but then out of the blue she will have severe debilitating migraine attacks. She has had to miss work last for the more severe migraine. She has started prn Nurtec- is effective but only receives 8 tabs per month. Uses naratriptan as well- effect varies. Baseline headache characteristics- Varies, Mod-Severe, throbbing, stabbing starting in bilateral lower occipital region and moves into bilateral temples/frontal region and then the whole head a/w photophobia, phonophobia, nausea, vomiting if severe, not right in space dizziness, brain fog, fatigue, worsening left facial paresthesias, speech slurring, activity intolerance. 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 F/u pituitary studies lab work was WNL. 10/10/2023, HST showed AHI < 1 hr, average SpO2 93%, w/ O2 bulmaro 78% (however SpO2 < 88% was recorded at 0 min). Previous work-up: 05/02/22 06/10/23 07/27/23 12:52 09:52 07:36 C-Reactive Protein 0.13 C-React Prot High Sens 2.4 Vitamin B12 464 Folate 8.7 TSH 1.20 Free T4 0.97 FSH 2.3 Luteinizing Hormone 2.3 Prolactin 7.9 Beta HCG, Quant < 2 Rheumatoid Factor < 13.0 JOSE G Screen POSITIVE A JOSE G Titer 1:80 H JOSE G Titer 2 1:80 H JOSE G Pattern A JOSE G Pattern 2 A 07/06/23, MR/MR head/brain wo/w con IMPRESSION: There is an expansile partially empty sella. 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 04/29/2022, Lumbar Puncture: OP-19 cmH2O w/ normal CSF studies. [facility] Medical History Microscopic hematuria Alopecia areata GERD (gastroesophageal reflux disease) Endometriosis IBS (irritable bowel syndrome) Surgical History No pertinent past surgical history Family History Mother No problems noted. 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 Physical Exam Vital Signs: Last Vital Signs Pulse 79 08/02/24 10:12 Pulse Ox 97 08/02/24 10:12 Oxygen Delivery Method Room Air 08/02/24 10:12 BMI result Body Mass Index 35.1 Const General: cooperative and no acute distress Orientation/consciousness: patient oriented x3 Resp Effort & Inspection: normal respiratory effort and able to speak in complete s entences Neuro General: patient oriented x3 Cranial nerves: Yes CN's II-XII intact bilaterally Cognition (Neuro): normal cognition Psych Appearance: grossly normal Mental Status: mental status grossly normal Speech and movement: Normal speech and movement present Affect: normal affect Attitude: cooperative Assessment & Plan Assessment & Plan (1) Pituitary cyst: Code(s): E23.6 - Other disorders of pituitary gland Category: Medical (2) Migraine: Comment: new onset headache w/ migrainous s/s, as well as worsening left facial paresthesias and speech difficulties- ? IIH, ? migraine w/ aura, ? headache attack exacerbating underlying trigeminal neuropathy process Code(s): G43.909 - Migraine, unspecified, not intractable, without status migrainosus Category: Medical (3) Facial paresthesia: Comment: left temporal/jaw region. Not a/w facial pain, bruxism, or painful chewing. ? trigeminal neuropathic process. Code(s): R20.2 - Paresthesia of skin Category: Medical (4) Fatigue: Code(s): R53.83 - Other fatigue Category: Medical Plan Pt advised to f/u w/ rheumatology to discuss resuming plaquenil, and advised as she will require close monitoring d/t the new SLE dx. ? if her bouts of burning pain and feeling as if her body is overstimulated is r/t her SLE. Will request endocrinology consult for pituitary region cyst. F/u brain/pituitary MRI in June 2024. Reviewed HST- no evidence of sleep apnea. Could consider in-lab PSG to assess for PLMS, however pt is not bothered by her sleep or RLS s/s at this time. Will monitor. Future considerations- brain MRA- to assess for left TN vascular compression. EEG for cognitive s/s. ? For overall headache management: Discussed importance of good self-care, including but not limited to maintaining a healthy diet, adequate fluid intake, adequate sleep, and engaging in regular physical activity. ? For acute headache treatment: Continue Ibuprofen 400-600mg prn. May continue naratriptan 2.5mg prn for now. As naratriptan is not always effective, Trial Rimegepant ODT (Nurtec ODT) 75mg, 1 tab every other day. Max of 1 tabs (75mg) per 24 hours. May adjunct with OTC Tylenol 650mg q 4 hours, Ibuprofen 600mg q 6 hours, or Naproxen 440mg q 12 hrs prn. Do not take w/ Butalbital (Fioricet or Fiorinal). Potential adverse effects, include but are not limited to fatigue, nausea, dry mouth, constipation. Previous acute migraine medication trials: Fioricet- ineffective. Sumatriptan 100mg- lost efficacy. Acute migraine medication contraindications: None at this time ? For headache prevention medication: Continue Riboflavin 400mg qam Continue Magnesium 400mg qhs Previous migraine prevention medication trials: Topiramate- caused mood changes, taste changes, may have contributed to kidney stone development in September 2023. Migraine prevention medication contraindications: Topiramate- d/t kidney stones. Pt to follow-up in 6 months or sooner prn. Orders: Orders MR head/brain wo/w con 08/02/24 E23.6 - Other disorders of pituitary gland Medications: Changed From magnesium oxide may hold for loose stools 400 mg PO BEDTIME 30 days 30 tabs 6RF To magnesium oxide may hold for loose stools 400 mg PO BEDTIME 90 tabs 3RF 90 days From riboflavin (vitamin B2) 400 mg PO DAILY 30 days 30 tabs 6RF To riboflavin (vitamin B2) 400 mg PO DAILY 90 tabs 3RF 90 days Refilled rimegepant (Nurtec ODT) 75 mg PO ONCE PRN 8 tabs 6RF migraine headache 30 days MDD 1 tab Discontinued sumatriptan succinate Discontinued Reason: Doctor's Order (0.5 - 1 x 100 mg) 50 - 100 mg orally at onset of headache, may repeat in 2 hrs PRN; max 2 tabs per day or 4 tabs/week (may take with Ibuprofen) 30 days 12 tabs 6RF migraine headache Coding Level of Care Code Est Pt Level 4 (62152) Diagnoses Pituitary cyst E23.6 Migraine G43.909 Facial paresthesia R20.2 Fatigue R53.83
[2024-08-02 10:12] VITALS: PULSE 79; O2SAT 97; BMI 35.1
--- OUTSIDE RECORDS SUMMARY | 2024-08-02 11:16 | XMS_ITS | Clinical Summary ---
Author Organization [facility] [address] [facility] Address [address] [place] [phone] Phone Care Team Providers Care Inorganic Chemist Name Role Phone Cecilia Terry MD Primary Care Provider Allergies No known active allergies Medications ibuprofen (ADVIL,MOTRIN) 600 mg tablet Take 1 Tablet by mouth every 6 hours as needed for Pain for up to 30 days. 08/26/19 23 Active SUMATRIPTAN NASL by Nasal route. Active magnesium oxide-Mg AA chelate (Magnesium, oxide/AA chelate,) 300 mg capsule Take 1 Capsule by mouth daily. Active docusate sodium (COLACE) 100 mg capsule Take 1 Capsule by mouth 2 times daily. 08/02/19 24 Active pantoprazole (PROTONIX) 40 mg EC tablet Take 1 Tablet by mouth 2 times daily (before meals). Take on empty stomach, wait 30 mins and then eat to activate the medication- before breakfast and supper 08/02/19 24 Active simethicone (MYLICON) 125 mg chewable tablet Take 1 Tablet by mouth every 6 hours as needed for Flatulence. 08/02/19 24 Active tamsulosin (FLOMAX) 0.4 mg 24 hr capsule Take 1 Capsule by mouth daily. Take 30 mins after same meal every day. 09/30/19 24 Active ergocalciferol (VITAMIN D-2) 1,250 mcg (50,000 unit) capsule Take 1 capsule (50,000 Units total) by mouth 1 (one) time per week. 8 capsule 07/28/19 025 Active meloxicam (MOBIC) 15 mg tablet Take 1 Tablet by mouth daily. 09/23/19 025 Discontinued polyethylene glycol (PEG) 17 gram/dose oral powder Take 17 g by mouth daily. 08/02/19 24 025 Discontinued bisacodyL (DULCOLAX) 5 mg EC tablet Take 2 tablets by mouth right before your first dose of liquid prep. 08/19/19 24 025 Discontinued hydroxychloroq uine (PLAQUENIL) 200 mg tablet Take 1 Tablet by mouth 2 times daily. 025 Discontinued Active Problems Problem Noted Date Diagnosed Date SLE (systemic lupus erythema tosus) ([facility] V24, [facility] V28) 07/20/2024 Endometriosis 03/28/2024 Vitamin D deficiency 12/30/2022 Chronic nonintractable headache 03/02/2022 Chiari I malformation ([facility] V24, [facility] V28) 09/29/2021 Overview (06/07/2024): No surgery will be recommended for this. GERD (gastroesophageal reflux disease) IBS (irritable bowel syndrome) 12/17/2020 Microscopic hematuria 06/17/2014 Overview (03/28/2024): Follows Dr. Freda reyes 06/05/2010 Encounters Date Type Department Care Team Description 07/26/2024 1:25 PM EDT - 07/26/2024 11:59 PM EDT Hospital Encounter [address] [phone] Rib pain Discharge Disposition: Home or Self Care 07/20/2024 10:00 AM EDT Office Visit Adult Medicine [address] [phone] Cecilia Terry MD Gastroesophageal reflux disease without esophagitis (Primary Dx); Rib pain; Vitamin D deficiency; Systemic lupus erythematosus, unspecified SLE type, unspecified organ involvement status ([facility] V24, [facility] V28) 07/19/2024 Nurse Triage Adult Medicine [address] [phone] Maday Jerome RN 06/16/2024 8:04 AM EST - 06/16/2024 11:59 PM EST Hospital Encounter Radiology Department [address] [phone] Encounter for screening mammogram for breast cancer Discharge Disposition: Home or Self Care from Last 3 Months Immunizations Name Administration Dates Next Due Hepatitis B (Xlbifsa-C-Wcvem , Recombivax HB-Adult) 19yo and older 12/17/2020 Influenza Quadravalent, MDCK , 0.5ml, preservative free (Flucelvax) 6mo and older 05/02/2018 MMR, measles mumps and rubel la Live (Priorix; M-M-R II) 12mo and older 06/25/2020 Measles 11/15/2020 Moderna SARS-CoV-2 COVID-19, mRNA, LNP-S, preservative free 09/27/2020,08/29/2020 Mumps 11/15/2020 Rubella 11/15/2020 Tdap Tetanus diptheria acell ular pertussis (Boostrix; Adacel) 7yo and older 07/31/2014 Varicella live (Varivax) 12mo and older 11/16/19 21 Surgical History Surgery Date Site/Laterality Comments COLONOSCOPY 03/03/2010 Normal OTHER SURGICAL HISTORY 2014 D&C Polyp removed UPPER GASTROINTESTINAL ENDOSCOPY 01/03/2019 dr. alcazar - gastritis STEREOTACTIC CORE BIOPSY 04/25/2023 - 04/24/2024 Right Medical History Medical History Date Comments Endometriosis IBS (irritable bowel syndrome) 12/17/2020 GERD (gastroesophageal reflux disease) SLE (systemic lupus erythematosus) ([facility] V24, [facility] V28) 07/20/2024 Family History Medical History Relation Name Comments Coronary artery disease Father CVAs , HTN, cholesterol Diabetes Maternal Grandmother Other: alive and well Mother Breast cancer Mother's side great aunt Ovarian cancer Mother's side great aunts x2 Coronary artery disease Paternal Grandmother blood clots from heart to brain Relation Name Status Comments Father Alive Maternal Grandfather Maternal Grandmother Alive Mother Alive Mother's side Paternal Grandfather Paternal Grandmother Social History Tobacco Use Types Packs/Day Years Used Date Smoking Tobacco: Former Smokeless Tobacco: Never Tobacco Cessation:Counseling Given: Not Answered Alcohol Use Standard Drinks/Week Comments Yes 0 (1 standard drink = 0.6 oz pur e alcohol) Comments Unknown Sex and Gender Information Value Date Recorded Sex Assigned at Not on file Legal Sex Female 4:56 AM EST Gender Identity Not on file Sexual Orientation Not on file Obstetrics History Para Term AB IAB SAB Ectopic Multiple Livin g Live Births 1 Date Outcome GA Total Labor Labor/2nd/3rd Weight Sex Type Anes PTL Rosemary A1 A5 Name Clin Term Last Filed Vital Signs Vital Sign Reading Time Taken Comments Blood Pressure 110/62 07/20/2024 9:54 AM EDT Pulse 82 07/20/2024 9:54 AM EDT Temperature 36.2 ??C (97.1 ??F) 07/20/2024 9:54 AM ED T Respiratory Rate 16 07/20/2024 9:54 AM EDT Oxygen Saturation 98% 07/20/2024 9:54 AM EDT Inhaled Oxygen Concentration - - Weight 79.1 kg (174 lb 4.8 oz) 07/20/2024 9:54 A M EDT Height 149.9 cm (4' 11 ) 07/20/2024 9:54 AM EDT Body Mass Index 35.2 07/20/2024 9:54 AM EDT Plan of Treatment Upcoming Encounters Date Type Department Care Team (Late st Contact Info) Description 08/27/2024 4:00 PM EDT Office Visit Adult Medicine [facility] [address] [place] [phone] Jesi Christian PA [address] [place] [address] Health Maintenance Due Date Last Done Comments Hepatitis A Vaccines (1 of 2 - Risk 2-dose series) 2001 Pneumococcal Vaccine: Pediatrics (0 to 5 Years) and At-Risk Patients (6 to 64 Years) (1 of 2 - PCV) 2001 Hepatitis B Vaccines (2 of 3 - 19+ 3-dose series) 01/14/2021 12/17/2020 Depression Screening 03/28/2022 Social Influencers of Health Screening 03/28/2022 COVID-19 Vaccine (3 - season) 2023 09/27/2020, 08/29/2020 DTaP,Tdap,and Td Vaccines (2 - Td or Tdap) 07/31/2024 07/31/2014 Influenza Vaccine (Season Ended) 2024 05/02/2018 Breast Cancer Screening 06/16/2026 06/16/19, 06/23/2023, 06/09/2023, Additional history exists Cervical Cancer Screening: HPV 01/06/2027 01/06/2022 Cholesterol Screening (Lipid Panel) 01/22/2028 01/21/2023 HIV Screening Completed 04/12/2011 Hepatitis C Screening Completed 09/18/2014 MMR Vaccines Aged Out 06/25/2020 No longer eligi ble based on patient's age to complete this topic Varicella Vaccines Aged Out 11/15/2020 No longer eligible based on patient's age to complete this topic HIB Vaccines Aged Out No longer eligi ble based on patient's age to complete this topic HPV Vaccines Aged Out No longer eligi ble based on patient's age to complete this topic IPV Vaccines Aged Out No longer eligi ble based on patient's age to complete this topic Meningococcal ACWY Vaccine Aged Out N o longer eligible based on patient's age to complete this topic Meningococcal B Vaccine Aged Out No l onger eligible based on patient's age to complete this topic RSV Immunization Patients Under 20 months Aged Out No longer eligible based on patient's age to complete this topic Procedures Procedure Name Priority Date/Time Associated Diagnosis Comments CBC WITH AUTO DIFFERENTIAL Routine 07/26/2024 1:45 PM EDT Systemic lupus erythematosus, unspecified SLE type, unspecified organ involvement status ([facility] V24, [facility] V28) VITAMIN D 25 HYDROXY Routine 07/26/2024 1:45 PM EDT Vitamin D deficiency CBC AND DIFFERENTIAL Routine 07/26/2024 1:45 PM EDT Systemic lupus erythematosus, unspecified SLE type, unspecified organ involvement status ([facility]/H[facility] V24, [facility] V28) XR CHEST 2 VIEWS Routine 07/26/2024 1:32 PM EDT Rib pain MG MAMMO DIGITAL SCREENING W TRICIA BILAT Routine 06/16/2024 8:15 AM EST Encounter for screening mammogram for breast cancer LIPID PANEL Routine 01/21/2023 HM HPV Routine 01/06/2022 HEPATITIS C SCREENING Routine 09/18/2014 HIV SCREENING Routine 04/12/2011 from Last 3 Months or Most Recently Relevant to Health Maintenance Results * CBC auto differential (07/26/2024 1:45 PM EDT) WBC 7.7 4.8 - 10.8 K/mcL LAB HEMETOLOGY METHOD 07/26/2024 4:37 PM EDT [facility] RBC 4.30 3.80 - 4.80 M/mcL LAB HEMETOLOGY METHOD 07/26/2024 4:37 PM EDT [facility] Hemoglobin 12.7 11.5 - 16.0 g/dL LAB HEMETOLOGY METHOD 07/26/2024 4:37 PM EDT [facility] Hematocrit 38.7 35.0 - 47.0 % LAB HEMETOLOGY METHOD 07/26/2024 4:37 PM EDT [facility] MCV 91.1 79.0 - 98.0 FL LAB HEMETOLOGY METHOD 07/26/2024 4:37 PM EDT [facility] MCH 29.9 27.0 - 32.0 pcg LAB HEMETOLOGY METHOD 07/26/2024 4:37 PM EDT [facility] MCHC 32.8 32.0 - 37.0 g/dL LAB HEMETOLOGY METHOD 07/26/2024 4:37 PM EDT [facility] RDW 12.5 11.0 - 15.0 % LAB [facility]EMETOLOGY METHOD [facility] Plate[facility] 263 130 - 400 K/mcL LAB HEMETOLOGY METHOD 07/26[facility]24 4[facility] MPV 11.0 7.0 - 11.0 FL LAB HEMETOLOGY METHOD 07/26/2024 4:37 PM EDT [facility] NRBC 0.0 <1.0 % LAB HEMETOLOGY METHOD [facility]24 4[facility] NRBC Absolute 0.00 <0.10 K/mcL LAB HEMETOLOGY METHOD 07/26/2024 4:37 PM [facility] Neutrophils Relative 60.6 % LAB HEMETOLOGY METHOD 07/26/2024 4:37 PM EDT [facility] Lymphocytes Relative 31.6 % LAB HEMETOLOGY METHOD 07/26/2024 4:37 PM [facility] Monocytes Relative 6.1 % LAB HEMETOLOGY METHOD 07/26/2024 4:37 PM [facility] Eosinophils Relative 1.2 % LAB HEMETOLOGY METHOD 07/26/2024 4:37 PM [facility] Basophils Relative 0.1 % LAB HEMETOLOGY METHOD 07/26/2024 4:37 PM [facility] Immature Granulocytes Relative 0.4 % LAB HEMETOLOGY METHOD [facility]/26[facility]2024 4:[facility] Neutrophils Absolute 4.65 1.50 - 7.00 K/mcL LAB HEMETOLOGY METHOD 07/26/2024 4:37 [facility] Lymphocytes Absolute 2.43 1.00 - 5.00 K/mcL LAB HEMETOLOGY METHOD 07/26/2024 4:37 PM EDT [facility] Monocytes Absolute 0.47 0.20 - 1.00 K/mcL LAB HEMETOLOGY METHOD 07/26/2024 4:37 PM EDT [facility] Eosinophils Absolute 0.09 0.00 - 0.50 K/mcL LAB HEMETOLOGY METHOD 07/26/2024 4:37 PM EDT [facility] Basophils Absolute 0.01 0.00 - 0.20 K/[facility] LAB HEMETOLOGY METHOD 07/26/2024 4:37 PM EDT [facility] Immature Granulocytes Absolute 0.03 0.00 - 0.03 K/[facility] LAB HEMETOLOGY METHOD 07/26/2024 4:37 PM EDT [facility] Blood Venous blood specimen / Unknown Venipuncture / Unknown 07/26/2024 1:45 PM EDT 07/26/2024 1:45 PM EDT us Cecilia Terry MD LAB BLOOD ORDERABLES Final Resul t [facility] [address] [place] [address], [place] [phone] * (ABNORMAL) Vitamin D 25 hydroxy (07/26/2024 1:45 PM EDT) Vit D, 25-Hydroxy 8.1(L) 30.0 - 80.0 ng/mL LAB CHEMISTRY METHOD 07/26/2024 5:03 PM EDT [facility] Blood Venous blood specimen / Unknown Venipuncture / Unknown 07/26/2024 1:45 PM EDT 07/26/2024 1:45 PM EDT Cecilia Terry MD LAB BLOOD ORDERABLES Final Resul t [facility] [address] [place] [address], [place] [phone] * XR Chest 2 Views (07/26/2024 1:32 PM EDT) Anatomical Region Laterality Modality Body Radiographic Liz ging 07/26/2024 5:23 PM EDT Impressions 07/26/2024 5:24 PM EDT No acute cardiopulmonary process. -------- FINAL REPORT -------- Dictated By: Beulah Killian Dictated Date: 07/26/2024 17:23 ET Assigned Physician: Beulah Killian Reviewed and Electronically Signed By: Beulah Killian Signed Date: 07/26/2024 17:24 ET Workstation ID: [id number] Transcribed By: Self Edit Transcribed Date: 07/26/2024 17:23 ET Narrative 07/26/2024 5:24 PM EDT HISTORY: chest wall pain TECHNIQUE: PA and lateral radiographs of the chest COMPARISON: None FINDINGS: There is a normal cardiomediastinal silhouette. The lungs are clear. ??Mild degenerative changes of the thoracic spine. Procedure Note Beulah Killian MD - 07/26/2024 HISTORY: chest wall pain TECHNIQUE: PA and lateral radiographs of the chest COMPARISON: None FINDINGS: There is a normal cardiomediastinal silhouette. The lungs are clear. Milddegenerative changes of the thoracic spine. IMPRESSION: No acute cardiopulmonary process. -------- FINAL REPORT -------- Dictated By: Beulah Killian Dictated Date: 07/26/2024 17:23 ET Assigned Physician: Beulah Killian Reviewed and Electronically Signed By: Beulah Killian Signed Date: 07/26/2024 17:24 ET Workstation ID: [id number] Transcribed By: Self Edit Transcribed Date: 07/26/2024 17:23 ET Cecilia Terry MD IMG XR PROCEDURES Final Result * MG Mammo Digital Screening w Tricia bilat (06/16/2024 8:15 AM EST) Anatomical Region Laterality Modality Breast Bilateral Mammography 06/18/2024 4:46 PM EST Impressions 06/18/2024 4:49 PM EST No mammographic evidence of malignancy. BREAST DENSITY: B - There are scattered areas of fibroglandular density. BI-RADS CATEGORY: 1 - NEGATIVE RECOMMENDATION: Screening bilateral mammogram is recommended in 1 year. MAMMO LOCATION: [facility], [address] [place] [address], [id number], . -------- FINAL REPORT -------- Dictated By: Elle Key Dictated Date: 06/18/2024 16:46 ET Assigned Physician: Elle Key Reviewed and Electronically Signed By: Elle Key Signed Date: 06/18/2024 16:49 ET Workstation ID: [id number] Transcribed By: Self Edit Transcribed Date: 06/18/2024 16:46 ET Narrative 06/18/2024 4:49 PM EST EXAM: Screening Mammogram CLINICAL: 44 years old, Female, routine annual exam. ??History of 2 benign right ultrasound-guided core biopsies on 06/23/2023. COMPARISON: 05/19/2023 TECHNIQUE: Bilateral MLO and CC views were obtained digitally with 3-D mammogram (digital breast tomosynthesis). Computer-aided detection was utilized in evaluation of this exam (CAD). FINDINGS: No new suspicious mass, architectural distortion, or suspicious calcifications. 2 biopsy clips again noted in the inner right breast. Procedure Note Elle Key MD - 06/18/2024 EXAM: Screening Mammogram CLINICAL: 44 years old, Female, routine annual exam. History of 2 benignright ultrasound-guided core biopsies on 06/23/2023. COMPARISON: 05/19/2023 TECHNIQUE: Bilateral MLO and CC views were obtained digitally with 3-Dmammogram (digital breast tomosynthesis). Computer-aided detection wasutilized in evaluation of this exam (CAD). FINDINGS: No new suspicious mass, architectural distortion, or suspiciouscalcifications. 2 biopsy clips again noted in the inner right breast. IMPRESSION: No mammographic evidence of malignancy. BREAST DENSITY: B - There are scattered areas of fibroglandular density. BI-RADS CATEGORY: 1 - NEGATIVE RECOMMENDATION: Screening bilateral mammogram is recommended in 1 year. MAMMO LOCATION: [facility], [address] [place] [address], [id number], . -------- FINAL REPORT -------- Dictated By: Elle Key Dictated Date: 06/18/2024 16:46 ET Assigned Physician: Elle Key Reviewed and Electronically Signed By: Elle Key Signed Date: 06/18/2024 16:49 ET Workstation ID: [id number] Transcribed By: Self Edit Transcribed Date: 06/18/2024 16:46 ET Result [facility] Roberto Lee CNM IMG BI PROCEDURES Final Result * (ABNORMAL) Lipid panel (01/21/2023) [facility] LDL/HDL Ratio 4 0 - 4 Triglycerides 103 0 - 150 mg/dL Cholesterol 218(A) 0 - 200 mg/dL HDL 62 >=40 mg/dL LDL Cholesterol 136(A) 0 - 100 mg/dL Blood Venous blood specimen / Unknown Result [facility] Provider LAB BLOOD ORDERABLES Nina l Result * Cervical Cancer Screening: HPV (01/06/2022) [facility] Cervical Cancer Screening: HPV Negative, Abstracted [facility] Provider HEALTH MAINTENANCE Final Result * Hepatitis C Screening (09/18/2014) [facility] Hepatitis C Screening Abstracted [facility] Provider HEALTH MAINTENANCE Final Result * HIV Screening (04/12/2011) [facility] HIV Screening Abstracted [facility] Provider HEALTH MAINTENANCE Final Result from Last 3 Months or Most Recently Relevant to Health Maintenance Insurance [facility] [address] [place] [address] Care Teams Inorganic Chemist Relationship Specialty Start Date End Date Cecilia Terry MD [address] [place] [address] PCP - General Internal Medicine 09/02/20
== END 2024-08-02 10:53 | disposition home or self-care (01) ==
LOC: HO.HSMS 09:52
PROVIDERS: PCP Internal Medicine; Visit Provider Nurse Practitioner Family
DX: E23.6 Other disorders of pituitary gland (principal); G43.909 Migraine, unspecified, not intractable, without status migrainosus; R20.2 Paresthesia of skin; R53.83 Other fatigue
CPT/HCPCS: 99214

== ENCOUNTER → 2024-08-15 08:23 | Outpatient (BNV) | payer OTHER, SELFPAY | PROVIDERS: PCP Internal Medicine; Visit Provider Radiology Diagnostic Radiology | DX: R90.89 Other abnormal findings on diagnostic imaging of central nervous system (principal) | CPT/HCPCS: 70553 ==

== ENCOUNTER 2024-08-15 08:31 | Outpatient (REF) | payer OTHER, SELFPAY ==
--- NOTE | ~2024-08-15 | MR_ITS ---
EXAMINATION: MR BRAIN WITHOUT AND WITH CONTRAST CLINICAL INFORMATION: Disorders of pituitary gland. COMPARISON: July 06, 2023 TECHNIQUE: Multiplanar, multisequence MRI of the brain was obtained before and after the intravenous administration of 4 mL Gadavist without reported immediate complications.. FINDINGS: There is a 7 x 10 x 6 mm, ovoid shaped, fluid signal characteristic, nonenhancing, no restricted diffusion signal structure in the posterior sella turcica behind the pituitary stalk There is intrasellar CSF prominence suggesting diaphragmatic sella insufficiency. The pituitary stalk is midline and measures 18 mm in maximal thickness. There is a focal 3 mm punctate restricted diffusion in the left frontal cerebral cortex. No acute intracranial hemorrhage, mass effect, midline shift, hydrocephalus or herniation. Mercer-white matter differentiation is normal. Flow-void signal within the main cerebral vessels is normal. No enhancing mass in the intra-axial or the extra-axial compartment of the cranium. No enhancing lesion in the coronary sinus. There is a high riding right internal jugular bulb. Bilateral cervical lymph nodes, nonspecific. Craniocervical junction is intact and normal. 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 MR/MR head/brain wo/w con IMPRESSION: 7 x 10 x 6 mm nonenhancing cystic structure, posterior sellar turcica. Stable. 3 mm focal restricted diffusion, left frontal cerebral cortex. Nonspecific. Recommend dedicated IV contrast enhanced MRI brain. Electronically signed by: Joseph Gurrola MD 08/16/2024 08:37 AM EDT
--- OUTSIDE RECORDS SUMMARY | 2024-08-15 08:57 | XMS_ITS | Clinical Summary ---
Author Organization [facility] Address [address] [place] [phone] Phone Care Team Providers Care Vending Technician Name Role Phone Cecilia Terry MD Primary Care Provider [phone] Allergies No known active allergies Medications ibuprofen [...] Diagnosed Date SLE (systemic lupus erythema tosus) ([facility] V24, [facility] V28) 07/20/2024 Endometriosis 03/28/2024 Vitamin D deficiency 12/30/2022 Chronic nonintractable headache 03/02/2022 Chiari I malformation ([facility] V24, [facility] V28) 09/29/2021 Overview (06/07/2024): No surgery will be recommended for this. GERD (gastroesophageal reflux disease) IBS (irritable bowel syndrome) 12/17/2020 Microscopic hematuria 06/17/2014 Overview (03/28/2024): Follows Dr. Freda reyes 06/05/2010 Encounters Date Type Department Care Team Description 07/26/2024 1:25 PM EDT - 07/26/2024 11:59 PM EDT Hospital Encounter [address] [phone] Rib pain Discharge Disposition: Home or Self Care 07/20/2024 10:00 AM EDT Office Visit Adult Medicine [address] [phone] Cecilia Terry MD Gastroesophageal reflux disease without esophagitis (Primary Dx); Rib pain; Vitamin D deficiency; Systemic lupus erythematosus, unspecified SLE type, unspecified organ involvement status ([facility] V24, [facility] V28) 07/19/2024 Nurse Triage Adult Medicine [address] [phone] Maday Jerome RN 06/16/2024 8:04 AM EST - 06/16/2024 11:59 PM EST Hospital Encounter Radiology Department [address] [phone] Encounter for screening mammogram for breast cancer Discharge Disposition: Home or Self Care from Last 3 Months Immunizations Name Administration Dates Next Due Hepatitis B (Kffyqut-O-Jwocm , Recombivax HB-Adult) 19yo and older 12/17/2020 [...] (gastroesophageal reflux disease) SLE (systemic lupus erythematosus) ([facility] V24, [facility] V28) 07/20/2024 Family History Medical History Relation [...] EDT Office Visit Adult Medicine [facility] [address] [place] [phone] Jesi Christian PA [address] [place] [address] Health Maintenance Due Date Last Done Comments [...] unspecified SLE type, unspecified organ involvement status ([facility] V24, [facility] V28) VITAMIN D 25 HYDROXY Routine 07/26/2024 [...] LAB HEMETOLOGY METHOD 07/26/2024 4:37 PM EDT [facility] RBC 4.30 3.80 - 4.80 M/mcL LAB HEMETOLOGY METHOD 07/26/2024 4:37 PM EDT [facility] Hemoglobin 12.7 11.5 - 16.0 g/dL LAB HEMETOLOGY METHOD 07/26/2024 4:37 PM EDT [facility] Hematocrit 38.7 35.0 - 47.0 % LAB HEMETOLOGY METHOD 07/26/2024 4:37 PM EDT [facility] MCV 91.1 79.0 - 98.0 FL LAB HEMETOLOGY METHOD 07/26/2024 4:37 PM EDT [facility] MCH 29.9 27.0 - 32.0 pcg LAB HEMETOLOGY METHOD 07/26/2024 4:37 PM EDT [facility] MCHC 32.8 32.0 - 37.0 g/dL LAB HEMETOLOGY METHOD 07/26/2024 4:37 PM EDT [facility] RDW 12.5 11.0 - 15.0 % LAB [facility]ETOLOGY [facility] 263 130 - 400 K/mcL LAB HEMETOLOGY METHOD [facility]24 4[facility] MPV 11.0 7.0 - 11.0 FL LAB HEMETOLOGY METHOD 07/26/2024 4:37 PM EDT [facility] NRBC 0.0 <1.0 % LAB HEMETOLOGY METHOD 07[facility]24 4[facility] NRBC Absolute 0.00 <0.10 K/mcL LAB HEMETOLOGY METHOD 07/26/2024 4:37 PM [facility] Neutrophils Relative 60.6 % LAB HEMETOLOGY METHOD 07/26/2024 4:37 PM EDT [facility] Lymphocytes Relative 31.6 % LAB HEMETOLOGY METHOD 07/26/2024 4:37 PM [facility] Monocytes Relative 6.1 % LAB HEMETOLOGY METHOD 07/26/2024 4:37 PM [facility] Eosinophils Relative 1.2 % LAB HEMETOLOGY METHOD 07/26/2024 4:37 PM [facility] Basophils Relative 0.1 % LAB HEMETOLOGY METHOD 07/26/2024 4:37 PM [facility] Immature Granulocytes Relative 0.4 % LAB HEMETOLOGY METHOD [facility]24 4[facility] Neutrophils Absolute 4.65 1.50 - 7.00 K/mcL LAB HEMETOLOGY METHOD 07/26[facility]2024 4[facility] Lymphocytes Absolute 2.43 1.00 - 5.00 K/mcL LAB HEMETOLOGY METHOD 07/26/2024 4:37 PM EDT [facility] Monocytes Absolute 0.47 0.20 - 1.00 K/mcL LAB HEMETOLOGY METHOD 07/26/2024 4:37 PM EDT [facility] Eosinophils Absolute 0.09 0.00 - 0.50 K/mcL LAB HEMETOLOGY METHOD 07/26/2024 4:37 PM EDT [facility] Basophils Absolute 0.01 0.00 - 0.20 K/[facility] LAB HEMETOLOGY METHOD 07/26/2024 4:37 PM EDT [facility] Immature Granulocytes Absolute 0.03 0.00 - 0.03 K/[facility] LAB HEMETOLOGY METHOD 07/26/2024 4:37 PM EDT [facility] Blood Venous blood specimen / Unknown Venipuncture / Unknown 07/26/2024 1:45 PM EDT 07/26/2024 1:45 PM EDT us Cecilia Terry MD LAB BLOOD ORDERABLES Final Resul t [facility] [address] [place] [address], [place] [phone] * (ABNORMAL) Vitamin D 25 hydroxy (07/26/2024 1:45 PM EDT) Vit D, 25-Hydroxy 8.1(L) 30.0 - 80.0 ng/mL LAB CHEMISTRY METHOD 07/26/2024 5:03 PM EDT [facility] Blood Venous blood specimen / Unknown Venipuncture / Unknown 07/26/2024 1:45 PM EDT 07/26/2024 1:45 PM EDT Cecilia Terry MD LAB BLOOD ORDERABLES Final Resul t [facility] [address] [place] [address], [place] [phone] * XR Chest 2 Views (07/26/2024 1:32 PM EDT) Anatomical Region Laterality Modality Body Radiographic Liz ging 07/26/2024 5:23 PM EDT Impressions 07/26/2024 5:24 PM EDT No acute cardiopulmonary process. -------- FINAL REPORT -------- Dictated By: Beulah Killian Dictated Date: 07/26/2024 17:23 ET Assigned Physician: Beulah Killian Reviewed and Electronically Signed By: Beulah Killian Signed Date: 07/26/2024 17:24 ET Workstation ID: [id number] Transcribed By: Self Edit Transcribed Date: 07/26/2024 [...] Signed Date: 07/26/2024 17:24 ET Workstation ID: [id number] Transcribed By: Self Edit Transcribed Date: 07/26/2024 [...] is recommended in 1 year. MAMMO LOCATION: [facility], [address] [place] [address], [id number], . -------- FINAL REPORT -------- Dictated By: Elle Key Dictated Date: 06/18/2024 16:46 ET Assigned Physician: Elle Key Reviewed and Electronically Signed By: Elle Key Signed Date: 06/18/2024 16:49 ET Workstation ID: [id number] Transcribed By: Self Edit Transcribed Date: 06/18/2024 [...] is recommended in 1 year. MAMMO LOCATION: [facility], [address] [place] [address], [id number], . -------- FINAL REPORT -------- Dictated By: Elle Key Dictated Date: 06/18/2024 16:46 ET Assigned Physician: Elle Key Reviewed and Electronically Signed By: Elle Key Signed Date: 06/18/2024 16:49 ET Workstation ID: [id number] Transcribed By: Self Edit Transcribed Date: 06/18/2024 16:46 ET Result [facility] Roberto Lee CNM IMG BI PROCEDURES Final Result * (ABNORMAL) Lipid panel (01/21/2023) [facility] LDL/HDL Ratio 4 0 - 4 Triglycerides 103 0 - 150 mg/dL Cholesterol 218(A) 0 - 200 mg/dL HDL 62 >=40 mg/dL LDL Cholesterol 136(A) 0 - 100 mg/dL Blood Venous blood specimen / Unknown Result [facility] Provider LAB BLOOD ORDERABLES Nina l Result * Cervical Cancer Screening: HPV (01/06/2022) [facility] Cervical Cancer Screening: HPV Negative, Abstracted [facility] Provider HEALTH MAINTENANCE Final Result * Hepatitis C Screening (09/18/2014) [facility] Hepatitis C Screening Abstracted [facility] Provider HEALTH MAINTENANCE Final Result * HIV Screening (04/12/2011) [facility] HIV Screening Abstracted [facility] Provider HEALTH MAINTENANCE Final Result from Last 3 Months or Most Recently Relevant to Health Maintenance Insurance [facility] [address] [place] [phone] Care Teams Vending Technician Relationship Specialty Start Date End Date Cecilia Terry MD [address] [place] [address] PCP - General Internal Medicine 09/02/20
[2024-08-15] MEDS: gadobutroL 7.5 ML VIAL IVPUSH (09:35)
== END 2024-08-15 08:32 | disposition home or self-care (01) ==
LOC: HO.MRI 08:31
PROVIDERS: PCP Internal Medicine; Visit Provider Nurse Practitioner Family
DX: E23.6 Other disorders of pituitary gland (principal)
CPT/HCPCS: 70553; A9585

== ENCOUNTER 2024-08-29 11:06 | Outpatient (REF) | payer OTHER, SELFPAY ==
--- OUTSIDE RECORDS SUMMARY | 2024-08-29 15:05 | XMS_ITS | Clinical Summary ---
Author Organization [facility] [address] [place] [address] [place] [phone] Phone Care Team Providers Care General Counselor Name Role Phone Cecilia Terry MD Primary Care Provider [phone] Allergies No known active allergies Medications ibuprofen [...] Diagnosed Date SLE (systemic lupus erythema tosus) ([place] V24, [place] V28) 07/20/2024 Endometriosis 03/28/2024 Vitamin D deficiency 12/30/2022 Chronic nonintractable headache 03/02/2022 Chiari I malformation ([place] V24, [place] V28) 09/29/2021 Overview (06/07/2024): No surgery will be recommended for this. GERD (gastroesophageal reflux disease) IBS (irritable bowel syndrome) 12/17/2020 Microscopic hematuria 06/17/2014 Overview (03/28/2024): Follows Dr. Freda reyes 06/05/2010 Encounters Date Type Department Care Team Description 07/26/2024 1:25 PM EDT - 07/26/2024 11:59 PM EDT Hospital Encounter XRAY - [address] [phone] Rib pain Discharge Disposition: Home or Self Care 07/20/2024 10:00 AM EDT Office Visit Adult Medicine [address] [phone] Cecilia Terry MD Gastroesophageal reflux disease without esophagitis (Primary Dx); Rib pain; Vitamin D deficiency; Systemic lupus erythematosus, unspecified SLE type, unspecified organ involvement status ([place] V24, [place] V28) 07/19/2024 Nurse Triage Adult Medicine [address] [phone] Maday Jerome RN 06/16/2024 8:04 AM EST - 06/16/2024 11:59 PM EST Hospital Encounter Radiology Department - [address] [phone] Encounter for screening mammogram for breast cancer Discharge Disposition: Home or Self Care from Last 3 Months Immunizations Name Administration Dates Next Due Hepatitis B (Rmfkgxg-B-Xovvv , Recombivax HB-Adult) 19yo and older 12/17/2020 [...] (gastroesophageal reflux disease) SLE (systemic lupus erythematosus) ([facility] V24, [facility] V28) 07/20/2024 Family History Medical History Relation [...] unspecified SLE type, unspecified organ involvement status ([facility] V24, [facility] V28) VITAMIN D 25 HYDROXY Routine 07/26/2024 1:45 PM EDT Vitamin D deficiency CBC AND DIFFERENTIAL Routine 07/26/2024 1:45 PM EDT Systemic lupus erythematosus, unspecified SLE type, unspecified organ involvement status ([facility] V24, [facility] V28) XR CHEST 2 VIEWS Routine 07/26/2024 [...] PM EDT) WBC 7.7 4.8 - 10.8 K/[facility] LAB HEMETOLOGY METHOD 07/26/2024 4:37 PM EDT [facility] RBC 4.30 3.80 - 4.80 M/mcL LAB HEMETOLOGY METHOD 07/26/2024 4:37 PM EDT [facility] Hemoglobin 12.7 11.5 - 16.0 g/dL LAB HEMETOLOGY METHOD 07/26/2024 4:37 [facility] Hematocrit 38.7 35.0 - 47.0 % LAB HEMETOLOGY METHOD 07/26/2024 4:37 PM EDT [facility] MCV 91.1 79.0 - 98.0 FL LAB HEMETOLOGY METHOD 07/26/2024 4:37 PM [facility] MCH 29.9 27.0 - 32.0 pcg LAB HEMETOLOGY METHOD 07/26/2024 4:37 PM [facility] MCHC 32.8 32.0 - 37.0 g/dL LAB HEMETOLOGY METHOD 07/26/2024 4:37 PM [facility] RDW 12.5 11.0 - 15.0 % LAB HEMETOLOGY METHOD 07/26/2024 4:37 PM [facility] Platelets 263 130 - 400 K/mcL LAB HEMETOLOGY METHOD 07/26/2024 4:37 PM [facility] MPV 11.0 7.0 - 11.0 FL LAB HEMETOLOGY METHOD 07/26/2024 4:37 PM EDT [facility] NRBC 0.0 <1.0 % LAB HEMETOLOGY METHOD 07/26/2024 4:37 PM EDT [facility] NRBC Absolute 0.00 <0.10 K/mcL LAB HEMETOLOGY METHOD 07/26/2024 4:37 PM [facility] Neutrophils Relative 60.6 % LAB HEMETOLOGY METHOD 07/26/2024 4:37 PM [facility] Lymphocytes Relative 31.6 % LAB HEMETOLOGY METHOD 07/26/2024 4:37 PM [facility] Monocytes Relative 6.1 % LAB HEMETOLOGY METHOD 07/26/2024 4:37 PM [facility] Eosinophils Relative 1.2 % LAB HEMETOLOGY METHOD 07/26/2024 4:37 PM EDT [facility] Basophils Relative 0.1 % LAB HEMETOLOGY METHOD 07/26/2024 4:37 PM [facility] Immature Granulocytes Relative 0.4 % LAB HEMETOLOGY METHOD 07/26/2024 4:37 PM [facility] Neutrophils Absolute 4.65 1.50 - 7.00 K/mcL LAB HEMETOLOGY METHOD 07/26/2024 4:37 PM [facility] Lymphocytes Absolute 2.43 1.00 - 5.00 K/mcL LAB HEMETOLOGY METHOD 07/26/2024 4:37 PM [facility] Monocytes Absolute 0.47 0.20 - 1.00 K/mcL LAB HEMETOLOGY METHOD 07/26/2024 4:37 PM [facility] Eosinophils Absolute 0.09 0.00 - 0.50 K/mcL LAB HEMETOLOGY METHOD 07/26/2024 4:37 PM EDT [facility] Basophils Absolute 0.01 0.00 - 0.20 K/mcL LAB HEMETOLOGY METHOD 07/26/2024 4:37 PM [facility] Immature Granulocytes Absolute 0.03 0.00 - 0.03 K/mcL LAB HEMETOLOGY METHOD 07/26/2024 4:37 PM [facility] Blood Venous blood specimen / Unknown Venipuncture / Unknown 07/26/2024 1:45 PM EDT 07/26/2024 1:45 PM EDT us Cecilia Terry MD LAB BLOOD ORDERABLES Final Resul t Performing Organization Address [facility] [place]/[facility]/ZIP Co de Phone Number [facility] [address] [place] [address], [place] [phone] * (ABNORMAL) Vitamin D 25 hydroxy (07/26/2024 1:45 PM EDT) Vit D, 25-Hydroxy 8.1(L) 30.0 - 80.0 ng/mL LAB CHEMISTRY METHOD 07/26/2024 5:03 PM EDT [facility] Blood Venous blood specimen / Unknown Venipuncture / Unknown 07/26/2024 1:45 PM EDT 07/26/2024 1:45 PM EDT us Cecilia Terry MD LAB BLOOD ORDERABLES Final Resul t Performing Organization Address [facility] [place]/[facility] Co de Phone Number [facility] [address] [place] [address], [place] [phone] * XR Chest 2 Views (07/26/2024 1:32 PM EDT) Anatomical Region Laterality Modality Body Radiographic Liz ging 07/26/2024 5:23 PM EDT Impressions 07/26/2024 5:24 PM EDT No acute cardiopulmonary process. -------- FINAL REPORT -------- Dictated By: Beulah Killian Dictated Date: 07/26/2024 17:23 ET Assigned Physician: Beulah Killian Reviewed and Electronically Signed By: Beulah Killian Signed Date: 07/26/2024 17:24 ET Workstation ID: [id number] Transcribed By: Self Edit Transcribed Date: 07/26/2024 [...] Signed Date: 07/26/2024 17:24 ET Workstation ID: [id number] Transcribed By: Self Edit Transcribed Date: 07/26/2024 [...] is recommended in 1 year. MAMMO LOCATION: [facility], [address] [place] [address], [phone], . -------- FINAL REPORT -------- Dictated By: Elle Key Dictated Date: 06/18/2024 16:46 ET Assigned Physician: Elle Key Reviewed and Electronically Signed By: Elle Key Signed Date: 06/18/2024 16:49 ET Workstation ID: [id number] Transcribed By: Self Edit Transcribed Date: 06/18/2024 [...] is recommended in 1 year. MAMMO LOCATION: [facility], [address] [place] [address], [phone], . -------- FINAL REPORT -------- Dictated By: Elle Key Dictated Date: 06/18/2024 16:46 ET Assigned Physician: Elle Key Reviewed and Electronically Signed By: Elle Key Signed Date: 06/18/2024 16:49 ET Workstation ID: [id number] Transcribed By: Self Edit Transcribed Date: 06/18/2024 [...] * Cervical Cancer Screening: HPV (01/06/2022) Pathologist [facility] Cervical Cancer Screening: HPV Negative, Abstracted [facility] Provider HEALTH MAINTENANCE Final Result * Hepatitis C Screening (09/18/2014) [facility] Hepatitis C Screening Abstracted [facility] Provider HEALTH MAINTENANCE Final Result * HIV Screening (04/12/2011) [facility] HIV Screening Abstracted [facility] Provider HEALTH MAINTENANCE Final Result from Last 3 Months or Most Recently Relevant to Health Maintenance Insurance [facility] [address] [place] [address] Care Teams General Counselor Relationship Specialty Start Date End Date Cecilia Terry MD [address] [place] [address] PCP - General Internal Medicine 09/02/20
== END 2024-08-29 11:07 | disposition home or self-care (01) ==
LOC: HO.LNP 11:06
PROVIDERS: PCP Internal Medicine; Visit Provider Nurse Practitioner Family
DX: N39.0 Urinary tract infection, site not specified (principal)
CPT/HCPCS: 81003; 87086

== ENCOUNTER 2024-08-29 11:06 | Outpatient (AMB) | payer OTHER, SELFPAY ==
--- NOTE | 2024-08-29 11:34 | A.OFFVIS_ITS ---
Intake Visit Reasons: Nephrolithiasis Intake Note: Patient presents today for follow up on: kidney stones Urology Medications: none Blood Thinner: none Business Analytics Manager Required: No Accompanied by: Self / Same As Patient Allergies No Known Allergies [NKA] Allergy (Mild, Verified 08/29/24 11:48) NKA Medication List - Last Reviewed 08/29/24 by Ranjit Crowder ibuprofen 600 mg PO Q6H PRN magnesium oxide 400 mg PO BEDTIME 90 days naproxen 375 mg PO BID 10 days naratriptan mg PO pantoprazole 40 mg PO DAILY riboflavin (vitamin B2) 400 mg PO DAILY 90 days rimegepant (Nurtec ODT) 75 mg PO ONCE PRN 30 days MDD 1 tab HPI Comments Details: Dhruv is a very pleasant 44-year-old female patient of Dr. Terry. She has a past medical history of alopecia areata, microscopic hematuria, GERD, endometriosis, and IBS. She presents to the office today as a new patient for nephrolithiasis and recurrent urinary tract infections. In discussion with the patient today she reports a longstanding history of nephrolithiasis however never requiring surgical intervention. She discusses her longstanding history of familial nephrolithiasis. She also reports noting UTI symptoms that started this past weekend however had doxycycline at home and started the medication however only had a few doses as she did not have a full prescription. We discussed importance of taking medications as prescribed especially in relation to antibiotic use. In office urinalysis results reviewed with the patient today 3+ leukocytes 3+ microscopic hematuria. She does report being on her menses. Most recent right-sided renal ultrasound 10/16 results were reviewed with the patient today mild right hydronephrosis and small right renal stones measuring 3 mm. We discussed obtaining new imaging for further assessment evaluation. We discussed at length potential causes of recurrent urinary tract infections as well as nephrolithiasis. When asked she does report minimal fluid intake. She does report dysuria and urinary frequency. She otherwise denies incontinence, nocturia, visible/gross hematuria, foul smelling urine, changes to urinary stream, flank pain, fever, and or chills. She reports having followed up with Neurology and Topamax has since been discontinued as she believes this could be contributing to her longstanding history of nephrolithiasis. She does report feeling UTI like symptoms start shortly after sexual activity. All questions were answered. She otherwise offers no other issues or concerns at this time. History of Present Illness The patient is a 44-year-old female presenting with recurrent urinary tract infections and an evaluation for nephrolithiasis. Over her lifetime, she experienced kidney stones approximately four to five times, the last imaging in September indicated stones in her right kidney. Her urinary tract infections are frequent, often occurring post-coitally or with irritant use, presenting as burning sensations. She self-medicates with previously prescribed antibiotics, which helps improve her symptoms. She has a history of insufficient hydration intake, which affects her nephrolithiasis and UTIs adversely. There?s a noted hereditary predisposition to kidney stones within her family. She also details a history of IBS, which may contribute to her urinary symptoms. Past medication (Topamax) history suggests it could have influenced stone formation. Her urinary infections tend to worsen with particular conditions but show improvement with hydration and antibiotic administration. Plan For ongoing management of her recurrent UTIs, a urine culture will be performed, and Nitrofurantoin prescribed for acute UTI management. For postcoital UTI prevention, she will use Nitrofurantoin 50 mg before/ after intercourse. Comprehensive renal ultrasound scheduled to evaluate bilateral kidneys, given previous confirmation of right kidney nephrolithiasis. Hydration will be a critical preventive measure against nephrolithiasis and UTIs. Audiovisual education on the relationship between IBS and urinary symptoms provided to improve her management of both conditions. Patient was informed and verbally consented to the use of an ambient scribe for clinic note documentation during this visit. Discussion Notes I discussed with the patient the presence of nephrolithiasis and the potential contribution of insufficient hydration, hereditary factors, and associated medication such as Topamax to her condition. We covered the risks and benefits of using Nitrofurantoin for acute and preventive UTI management, particularly how postcoital Nitrofurantoin could aid in reducing the frequency of infections related to sexual activity. We discussed the importance of hydration in the prevention of both UTIs and stone formation, and the plan to use imaging for a full assessment of her renal state. I stressed the potential exacerbating effect of IBS on UTIs and advised continuation of treatment under her gastroen terologist's guidance to stabilize these symptoms, thus aiding in UTIs control. The patient consented to the plan discussed and is receptive to increasing hydration gradually. Additionally, we agreed on close monitoring of her condition and follow-up after receiving the ultrasound and culture results. [facility] Medical History Microscopic hematuria Alopecia areata GERD (gastroesophageal reflux disease) Endometriosis IBS (irritable bowel syndrome) Surgical History No pertinent past surgical history Family History Mother No problems noted. 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 Review of Systems Const All systems reviewed & are unremarkable except as noted in HPI and below Physical Exam Const General: cooperative, healthy appearing, comfortable, no acute distress, well developed, alert and awake Orientation/consciousness: patient oriented x3 Limitations: no limitations HEENT Head: Yes normal to inspection, Yes normocephalic and Yes atraumatic Ears: hearing grossly normal bilaterally Eyes General: appearance normal, both eyes and all related structures Neck Neck: Yes normal visual inspection and Yes trachea midline Chest Chest palpation & inspection: normal inspection of the chest Resp Effort & Inspection: normal respiratory effort and able to speak in complete sentences Cardio Rate: regular rate GI Inspection: Yes normal to inspection General: Yes no CVA tenderness Back/Spine/Pelvis Back: no CVA tenderness Skin General skin exam: no rashes or lesions noted Neuro General: patient oriented x3 Extrem General: Yes normal to inspection Psych Appearance: grossly normal and well kempt Mental Status: mental status grossly normal Speech and movement: Normal speech and movement present and Clear speech present Affect: normal affect Attitude: cooperative Thought process: Normal thought process present Thought content: Normal thought content present Insight: Fair insight present (Psych) Judgement: Fair judgement present (Psych) Results AMB Urinalysis, Automated UA Leukoctes 500 Donny/uL Last Edit by Ranjit Crowder on 08/29/24 11:53 UA Nitrite Last Edit by Ranjit Crowder on 08/29/24 11:53 UA Urobilinogen 0.2 mg/dL Last Edit by Ranjit Crowder on 08/29/24 11:53 UA Protein 15 mg/dL Last Edit by Ranjit Crowder on 08/29/24 11:53 UA pH 6.0 Last Edit by Ranjit Crowder on 08/29/24 11:53 UA Blood 200 [place]/uL Last Edit by Ranjit Crowder on 08/29/24 11:53 UA Specific [place] 1.020 Last Edit by Ranjit Crowder on 08/29/24 11:53 UA Ketone Last Edit by Ranjit Crowder on 08/29/24 11:53 UA Bilirubin 0 mg/dL Last Edit by Ranjit Crowder on 08/29/24 11:53 UA Glucose 0 mg/dL Last Edit by Ranjit Crowder on 08/29/24 11:53 Results Reviewed Results Reviewed: Laboratory Last Values Urine pH (Auto) 6.0 08/29/24 11:52 Specific [place] (Auto) 1.020 08/29/24 11:52 Urine Protein (Auto) 15 mg/dL 08/29/24 11:52 Glucose (UA)(Auto) 0 mg/dL 08/29/24 11:52 Urine Blood (Auto) 200 [place]/uL 08/29/24 11:52 Urine Bilirubin (Auto) 0 mg/dL 08/29/24 11:52 Urine Urobilinogen (Auto) 0.2 mg/dL 08/29/24 11:52 Leukocyte Esterase (Auto) 500 Donny/uL 08/29/24 11:52 Date of Service: 10/05/23 Procedure(s): US renal RT FINDINGS: The right kidney measures 10.8 x 5.8 x 5.8 cm in dimension. Renal cortical thickness and echogenicity is normal. There is mild right hydronephrosis. There are 2 right renal stones, largest measuring 2 x 3 x 3 mm in the midpole. IMPRESSION: Mild right hydronephrosis and small right renal stones. Assessment & Plan Assessment & Plan (1) Recurrent urinary tract infection: Code(s): N39.0 - Urinary tract infection, site not specified Category: Medical (2) Dysuria: Code(s): R30.0 - Dysuria Category: Medical Plan In office urinalysis results reviewed with the patient today; as noted above; will send for urine culture. Will obtain retroperitoneal ultrasound for further assessment evaluation. We discussed importance of adequate hydration relation to nephrolithiasis as well as recurrent urinary tract infections. We discussed importance of taking medications as prescribed. Start Macrobid as discussed and prescribed. Prescription provided for postcoital antibiotic therapy. We discussed potential causes of nephrolithiasis as well as recurrent urinary tract infections; further treatment options and risks and benefits of these treatment options. Follow-up in 1-3 months with imaging and PVR; or sooner with any issues, concerns, and or questions. Orders: Orders AMB Urinalysis Automated Today Z13.9 - Encounter for screening, unspecified US retroperitoneal comp Today N20.0 - Calculus of kidney, N39.0 - Urinary tract infection, site not specified UA CC w/rflx Micro + Cult Today N39.0 - Urinary tract infection, site not specified, R30.0 - Dysuria Medications: New nitrofurantoin macrocrystal 50 mg PO ONCE 90 caps 0RF Post-coital 90 days N39.0 - Urinary tract infection, site not specified nitrofurantoin macrocrystal must administer with a meal/food 100 mg PO BID 14 caps 0RF 7 days N39.0 - Urinary tract infection, site not specified Patient Instructions: The patient had an opportunity to ask questions regarding the treatment plan. All questions were answered. Physical exam, labs, and imaging were discussed and reviewed in detail. As well as risks, benefits, and discussion of treatment choices. No major barriers to understanding were identified. The patient e xpressed understanding and agreement with the above treatment plan. The patient was made aware they should contact our office by phone for worsening of their current condition, the appearance of new symptoms, or with any questions or concerns. Compliance is encouraged with any medications and follow up testing that is ordered. It is a privilege to be allowed the opportunity to participate in? your urological care.? Again, if you have any questions or concerns If you have any questions or concerns please do not hesitate to contact me. The office is [phone]. This note is constructed using voice recognition software. While every effort has been made to ensure accuracy party plan sales unit sales leader errors may have been included. Yours sincerely, BAMBI Hobson Coding Level of Care Code New Pt Level 4 (67127) Diagnoses Recurrent urinary tract infection N39.0 Dysuria R30.0
--- OUTSIDE RECORDS SUMMARY | 2024-08-29 12:34 | XMS_ITS | Clinical Summary ---
Author Organization [facility] [address] [place] [address] [place] [phone] Phone Care Team Providers Care Director Of Corporate Marketing Name Role Phone Cecilia Terry MD Primary Care Provider [phone] Allergies No known active allergies Medications ibuprofen (ADVIL,MOTRIN) 600 mg tablet Take 1 Tablet by mouth every 6 hours as needed for Pain for up to 30 days. 3 Active SUMATRIPTAN NASL by Nasal route. Active magnesium oxide-Mg AA chelate (Magnesium, oxide/AA chelate,) 300 mg capsule Take 1 Capsule by mouth daily. Active docusate sodium (COLACE) 100 mg capsule Take 1 Capsule by mouth 2 times daily. 4 Active pantoprazole (PROTONIX) 40 mg EC tablet Take 1 Tablet by mouth 2 times daily (before meals). Take on empty stomach, wait 30 mins and then eat to activate the medication- before breakfast and supper 4 Active simethicone (MYLICON) 125 mg chewable tablet Take 1 Tablet by mouth every 6 hours as needed for Flatulence. 4 Active tamsulosin (FLOMAX) 0.4 mg 24 hr capsule Take 1 Capsule by mouth daily. Take 30 mins after same meal every day. 4 Active ergocalciferol (VITAMIN D-2) 1,250 mcg (50,000 unit) capsule Take 1 capsule (50,000 Units total) by mouth 1 (one) time per week. 8 capsule 5 09/22/19 25 Active Active Problems Problem Noted Date Diagnosed Date SLE (systemic lupus erythema tosus) ([facility], [facility] V28) 07/20/2024 Endometriosis 03/28/2024 Vitamin D deficiency 12/30/2022 Chronic nonintractable headache 03/02/2022 Chiari I malformation ([facility] V24, [facility] V28) 09/29/2021 Overview (06/07/2024): No surgery will be recommended for this. GERD (gastroesophageal reflux disease) IBS (irritable bowel syndrome) 12/17/2020 Microscopic hematuria 06/17/2014 Overview (03/28/2024): Follows Dr. Freda reyes 06/05/2010 Encounters Date Type Department Care Team Description 07/26/2024 1:25 PM EDT - 07/26/2024 11:59 PM EDT Hospital Encounter XRAY - [address] [phone] Rib pain Discharge Disposition: Home or Self Care 07/20/2024 10:00 AM EDT Office Visit Adult Medicine [address] [phone] Cecilia Terry MD Gastroesophageal reflux disease without esophagitis (Primary Dx); Rib pain; Vitamin D deficiency; Systemic lupus erythematosus, unspecified SLE type, unspecified organ involvement status ([facility] V24, [facility] V28) 07/19/2024 Nurse Triage Adult Medicine [address] [phone] Maday Jerome RN 06/16/2024 8:04 AM EST - 06/16/2024 11:59 PM EST Hospital Encounter Radiology Department - [address] [phone] Encounter for screening mammogram for breast cancer Discharge Disposition: Home or Self Care from Last 3 Months Immunizations Name Administration Dates Next Due Hepatitis B (Hcnospp-Q-Gjldl , Recombivax HB-Adult) 19yo and older 12/17/2020 [...] (gastroesophageal reflux disease) SLE (systemic lupus erythematosus) ([facility] V24, [facility] V28) 07/20/2024 Family History Medical [...] Ectopic Multiple Livin g Live Births 1 1 1 1 Date Outcome GA Total Labor Labor/2nd/3rd [...] 07/20/2024 9:54 AM EDT Plan of Treatment Health Maintenance Due Date Last Done Comments Hepatitis A Vaccines (1 of 2 - Risk 2-dose series) 2001 Pneumococcal Vaccine: Pediatrics (0 to 5 Years) and At-Risk Patients (6 to 64 Years) (1 of 2 - PCV) 2001 Hepatitis B Vaccines (2 of 3 - 19+ 3-dose series) 01/14/2021 12/17/2020 Depression Screening 03/28/2022 Social Influencers of Health Screening 03/28/2022 COVID-19 Vaccine ( - season) 2023 09/27/2020, 08/29/2020 DTaP,Tdap,and Td [...] unspecified SLE type, unspecified organ involvement status ([facility] V24, [facility] V28) VITAMIN D 25 HYDROXY Routine 07/26/2024 1:45 PM EDT Vitamin D deficiency CBC AND DIFFERENTIAL Routine 07/26/2024 1:45 PM EDT Systemic lupus erythematosus, unspecified SLE type, unspecified organ involvement status ([facility] V24, [facility] V28) XR CHEST 2 VIEWS Routine 07/26/2024 [...] PM EDT) WBC 7.7 4.8 - 10.8 K/[facility] LAB HEMETOLOGY METHOD 07/26/2024 4:37 PM EDT [facility] RBC 4.30 3.80 - 4.80 M/mcL LAB HEMETOLOGY METHOD 07/26/2024 4:37 PM EDT [facility] Hemoglobin 12.7 11.5 - 16.0 g/dL LAB HEMETOLOGY METHOD 07/26[facility]2024 4[facility] Hematocrit 38.7 35.0 - 47.0 % LAB HEMETOLOGY METHOD 07/26/2024 4:37 PM EDT [facility] MCV 91.1 79.0 - 98.0 FL LAB HEMETOLOGY METHOD 07/26/2024 4:37 [facility] MCH 29.9 27.0 - 32.0 pcg LAB HEMETOLOGY METHOD 07/26/2024 4:37 [facility] MCHC 32.8 32.0 - 37.0 g/dL LAB HEMETOLOGY METHOD 07/26/2024 4:37 [facility] RDW 12.5 11.0 - 15.0 % LAB HEMETOLOGY METHOD 07/26/2024 4:37 PM [facility] Platelets 263 130 - 400 K/mcL LAB HEMETOLOGY METHOD 07/26/2024 4:37 PM [facility] MPV 11.0 7.0 - 11.0 FL LAB HEMETOLOGY METHOD 07/26/2024 4:37 PM EDT [facility] NRBC 0.0 <1.0 % LAB HEMETOLOGY METHOD 07/26/2024 4:37 PM EDT [facility] NRBC Absolute 0.00 <0.10 K/mcL LAB HEMETOLOGY METHOD 07/26/2024 4:37 PM [facility] Neutrophils Relative 60.6 % LAB HEMETOLOGY METHOD 07/26/2024 4:37 PM [facility] Lymphocytes Relative 31.6 % LAB HEMETOLOGY METHOD 07/26/2024 4:37 PM [facility] Monocytes Relative 6.1 % LAB HEMETOLOGY METHOD 07/26/2024 4:37 PM [facility] Eosinophils Relative 1.2 % LAB HEMETOLOGY METHOD 07/26/2024 4:37 PM EDT [facility] Basophils Relative 0.1 % LAB HEMETOLOGY METHOD 07/26/2024 4:37 PM [facility] Immature Granulocytes Relative 0.4 % LAB HEMETOLOGY METHOD 07/26/2024 4:37 PM [facility] Neutrophils Absolute 4.65 1.50 - 7.00 K/mcL LAB HEMETOLOGY METHOD 07/26/2024 4:37 PM [facility] Lymphocytes Absolute 2.43 1.00 - 5.00 K/mcL LAB HEMETOLOGY METHOD 07/26/2024 4:37 PM [facility] Monocytes Absolute 0.47 0.20 - 1.00 K/mcL LAB HEMETOLOGY METHOD 07/26/2024 4:37 PM [facility] Eosinophils Absolute 0.09 0.00 - 0.50 K/mcL LAB HEMETOLOGY METHOD 07/26/2024 4:37 PM EDT [facility] Basophils Absolute 0.01 0.00 - 0.20 K/mcL LAB HEMETOLOGY METHOD 07/26/2024 4:37 PM [facility] Immature Granulocytes Absolute 0.03 0.00 - 0.03 K/mcL LAB HEMETOLOGY METHOD 07/26/2024 4:37 PM [facility] Blood Venous blood specimen / Unknown Venipuncture / Unknown 07/26/2024 1:45 PM EDT 07/26/2024 1:45 PM EDT us Cecilia Terry MD LAB BLOOD ORDERABLES Final Resul t Performing Organization Address [facility]/ZIP Co de Phone Number [facility] [address] [place] [address], [place] [phone] * (ABNORMAL) Vitamin D 25 hydroxy (07/26/2024 1:45 PM EDT) Vit D, 25-Hydroxy 8.1(L) 30.0 - 80.0 ng/mL LAB CHEMISTRY METHOD 07/26/2024 5:03 PM EDT [facility] Blood Venous blood specimen / Unknown Venipuncture / Unknown 07/26/2024 1:45 PM EDT 07/26/2024 1:45 PM EDT us Cecilia Terry MD LAB BLOOD ORDERABLES Final Resul t Performing Organization Address [facility] Co de Phone Number [facility] [address] [place] [address], [place] [phone] * XR Chest 2 Views (07/26/2024 1:32 PM EDT) Anatomical Region Laterality Modality Body Radiographic Liz ging 07/26/2024 5:23 PM EDT Impressions 07/26/2024 5:24 PM EDT No acute cardiopulmonary process. -------- FINAL REPORT -------- Dictated By: Beulah Killian Dictated Date: 07/26/2024 17:23 ET Assigned Physician: Beulah Killian Reviewed and Electronically Signed By: Beulah Killian Signed Date: 07/26/2024 17:24 ET Workstation ID: [id number] Transcribed By: Self Edit Transcribed Date: 07/26/2024 [...] Signed Date: 07/26/2024 17:24 ET Workstation ID: [id number] Transcribed By: Self Edit Transcribed Date: 07/26/2024 17:23 ET us Cecilia Terry MD IMG XR PROCEDURES Final [...] is recommended in 1 year. MAMMO LOCATION: [facility], [address] [place] [address], [phone], . -------- FINAL REPORT -------- Dictated By: Elle Key Dictated Date: 06/18/2024 16:46 ET Assigned Physician: Elle Key Reviewed and Electronically Signed By: Elle Key Signed Date: 06/18/2024 16:49 ET Workstation ID: [id number] Transcribed By: Self Edit Transcribed Date: 06/18/2024 [...] is recommended in 1 year. MAMMO LOCATION: [facility], [address] [place] [address], [phone], . -------- FINAL REPORT -------- Dictated By: Elle Key Dictated Date: 06/18/2024 16:46 ET Assigned Physician: Elle Key Reviewed and Electronically Signed By: Elle Key Signed Date: 06/18/2024 16:49 ET Workstation ID: [id number] Transcribed By: Self Edit Transcribed Date: 06/18/2024 16:46 ET Roberto Lee CNM IM BI PROCEDURES Final Result * (ABNORMAL) Lipid panel (01/21/2023) LDL/HDL Ratio 4 0 - 4 Triglycerides 103 0 - 150 mg/dL Cholesterol 218(A) 0 - 200 mg/dL HDL 62 >=40 mg/dL LDL Cholesterol 136(A) 0 - 100 mg/dL Blood Venous blood specimen / Unknown Historical Provider LAB BLOOD ORDERABLES Nina l Result * Cervical Cancer Screening: HPV (01/06/2022) [facility]ologist [facility] Cervical Cancer Screening: HPV Negative, Abstracted [facility] Provider HEALTH MAINTENANCE Final Result * Hepatitis C Screening (09/18/2014) [facility] Hepatitis C Screening Abstracted [facility] Provider HEALTH MAINTENANCE Final Result * HIV Screening (04/12/2011) [facility] HIV Screening Abstracted [facility] Provider HEALTH MAINTENANCE Final Result from Last 3 Months or Most Recently Relevant to Health Maintenance Insurance [facility] [address] [place] [address] Care Teams Director Of Corporate Marketing Relationship Specialty Start Date End Date Cecilia Terry MD [address] [place] [address] PCP - General Internal Medicine 09/02/20
== END 2024-08-29 12:07 | disposition home or self-care (01) ==
LOC: HO.HUSH 11:07
PROVIDERS: PCP Internal Medicine; Visit Provider Nurse Practitioner Family
DX: N39.0 Urinary tract infection, site not specified (principal); R30.0 Dysuria; Z13.9 Encounter for screening, unspecified
CPT/HCPCS: 99204

== ENCOUNTER → 2024-09-20 10:26 | Outpatient (BNV) | payer OTHER, SELFPAY | PROVIDERS: PCP Internal Medicine; Visit Provider Radiology Diagnostic Radiology | DX: E23.6 Other disorders of pituitary gland (principal) | CPT/HCPCS: 70553 ==

== ENCOUNTER 2024-09-20 10:29 | Outpatient (REF) | payer OTHER, SELFPAY ==
--- NOTE | ~2024-09-20 | MR_ITS ---
EXAMINATION: MR BRAIN WITHOUT AND WITH CONTRAST CLINICAL INFORMATION: 3 mm focus of diffusion abnormality left frontal cortex seen on prior exam, without confirming signal abnormality on any other sequence. Repeat examination for evaluation if artifact or a real finding. COMPARISON: None available. TECHNIQUE: Repeat diffusion, sagittal T1, axial T1, axial T2 FLAIR, axial SWI, axial T2 fat sac, and axial and coronal T1 postcontrast sequences were utilized. 8 mL IV Gadavist administered without incident. Examination performed on a 1.5 Jo Siemens high-field unit. FINDINGS: Repeat diffusion demonstrates no persistent perfusion signal in the left frontal cortex. On the prior exam, this was felt to be artifactual, with no confirming abnormality on any other sequence. Current exam demonstrates it was indeed artifactual and not a real finding. There is no diffusion restriction. There is no intracranial hemorrhage, acute infarction, mass effect, or edema. Ventricles, sulci, and cisterns are normal in size and configuration for patient age. No shift of midline. No abnormal hemosiderin deposition is identified. There are no white matter signal abnormalities. No abnormal intra or extra-axial enhancement after the administration of contrast. Midline structures appear normally formed. Redemonstration of partial empty sella. 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 Posterior fossa structures appear normal. Cerebellar tonsils are appropriately located. Major flow voids are preserved within the skull base. The globes and orbital contents demonstrate no abnormalities. Paranasal sinuses are clear bilaterally. The mastoids and tympanic cavities are normally aerated. Extracranial soft tissues demonstrate a small 5 mm T2 hypointense probable Thornwaldt cyst in the posterior nasopharynx. No suspicious bone marrow changes are evident. Atlantoaxial joint is normal. MR/MR head/brain wo/w con IMPRESSION: 1. Focus of diffusion signal in the left frontal cortex on the prior exam was artifactual. No persisting abnormality on today's examination on the repeat diffusion or any other pulsing sequence. 2. No significant white matter abnormalities. No abnormal intra or extra-axial enhancement. 3. 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 This was seen to better advantage on the recent exam 08/15/2024. 4. Remainder the examination is normal. Electronically signed by: Bridger Marc MD 09/20/2024 02:59 PM EDT
--- OUTSIDE RECORDS SUMMARY | 2024-09-20 10:55 | XMS_ITS | Clinical Summary ---
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 GERD (gastroesophageal reflux disease) IBS (irritable bowel syndrome) 12/17/2020 Microscopic hematuria 06/17/2014 Overview (03/28/2024): Follows Dr. Freda reyes 06/05/2010 Encounters Date Type Department Care Team Description 07/26/2024 1:25 PM EDT - 07/26/2024 11:59 PM EDT Hospital Encounter [address] [phone] Rib pain Discharge Disposition: Home or Self Care 07/20/2024 10:00 AM EDT Office Visit Adult Medicine [address] [phone] Cecilia Terry MD Gastroesophageal reflux disease without esophagitis (Primary Dx); Rib pain; Vitamin D deficiency; Systemic lupus erythematosus, unspecified SLE type, unspecified organ involvement status ([facility] [place], [facility] V28) 07/19/2024 Nurse Triage Adult Medicine [address] [phone] Maday Jerome, TERESA from Last 3 Months Immunizations Name Administration Dates Next Due Hepatitis B (Epfymbi-M-Ryert , Recombivax HB-Adult) 19yo and older 12/17/2020 [...] (gastroesophageal reflux disease) SLE (systemic lupus erythematosus) ([facility] V24, [facility] V28) 07/20/2024 Family History Medical [...] 36.2 ??C (97.1 ??F) 07/20/2024 9:54 AM E DT Respiratory Rate 16 07/20/2024 9:54 AM EDT [...] of Health Screening 03/28/2022 COVID-19 Vaccine ( season) 2023 09/27/2020, 08/29/2020 DTaP,Tdap,and Td Vaccines [...] unspecified SLE type, unspecified organ involvement status ([facility] V24, [facility] V28) VITAMIN D 25 HYDROXY Routine 07/26/2024 1:45 PM EDT Vitamin D deficiency CBC AND DIFFERENTIAL Routine 07/26/2024 1:45 PM EDT Systemic lupus erythematosus, unspecified SLE type, unspecified organ involvement status ([facility] V24, [facility] V28) XR CHEST 2 VIEWS [...] PM EDT) WBC 7.7 4.8 - 10.8 K/[facility] LAB HEMETOLOGY METHOD 07/26/2024 4:37 PM EDT [facility] RBC 4.30 3.80 - 4.80 M/mcL LAB HEMETOLOGY METHOD 07/26/2024 4:37 PM EDT [facility] Hemoglobin 12.7 11.5 - 16.0 g/dL LAB HEMETOLOGY METHOD 07/26/2024 4:37 PM EDT [facility] Hematocrit 38.7 35.0 - 47.0 % LAB [facility] MCV 91.1 79.0 - 98.0 FL LAB HEMETOLOGY METHOD 07/26/2024 4:37 PM EDT [facility] MCH 29.9 27.0 - 32.0 pcg LAB HEMETOLOGY METHOD 07/26/2024 4:37 PM EDT [facility] MCHC 32.8 32.0 - 37.0 g/dL LAB HEMETOLOGY METHOD 07/[facility]2024 4:[facility] RDW 12.5 11.0 - 15.0 % LAB HEMETOLOGY METHOD 07/26/2024 4:37 [facility] Platelets 263 130 - 400 K/mcL LAB HEMETOLOGY METHOD 07/26/2024 4:37 [facility] MPV 11.0 7.0 - 11.0 FL LAB HEMETOLOGY METHOD 07/26/2024 4:37 [facility] NRBC 0.0 <1.0 % LAB HEMETOLOGY METHOD 07/26/2024 4:37 [facility] NRBC Absolute 0.00 <0.10 K/mcL LAB HEMETOLOGY METHOD 07/26/2024 4:37 PM EDT [facility] Neutrophils Relative 60.6 % LAB HEMETOLOGY METHOD 07/26[facility]2024 4:37 [facility] Lymphocytes Relative 31.6 % LAB HEMETOLOGY METHOD 07/26/2024 4:37 [facility] Monocytes Relative 6.1 % LAB HEMETOLOGY METHOD 07/26/2024 4:37 PM EDT [facility] Eosinophils Relative 1.2 % LAB HEMETOLOGY METHOD 07/26/2024 4:37 PM EDT [facility] Basophils Relative 0.1 % LAB HEMETOLOGY METHOD 07/26/2024 4:37 PM EDT [facility] Immature Granulocytes Relative 0.4 % LAB HEMETOLOGY METHOD 07/26/2024 4:37 PM EDT [facility] Neutrophils Absolute 4.65 1.50 - 7.00 K/mcL LAB HEMETOLOGY METHOD 07/26/2024 4:37 PM EDT [facility] Lymphocytes Absolute 2.43 1.00 - 5.00 K/mcL LAB HEMETOLOGY METHOD 07/26/2024 4:37 PM EDT [facility] Monocytes Absolute 0.47 0.20 - 1.00 K/mcL LAB HEMETOLOGY METHOD 07/26/2024 4:37 PM EDT [facility] Eosinophils Absolute 0.09 0.00 - 0.50 K/mcL LAB HEMETOLOGY METHOD 07/26/2024 4:37 PM EDT [facility] Basophils Absolute 0.01 0.00 - 0.20 K/mcL LAB HEMETOLOGY METHOD 07/26/2024 4:37 PM EDT [facility] Immature Granulocytes Absolute 0.03 0.00 - 0.03 K/mcL LAB HEMETOLOGY METHOD 07/26/2024 4:37 PM EDT [facility] Blood Venous blood specimen / Unknown Venipuncture / Unknown 07/26/2024 1:45 PM EDT 07/26/2024 1:45 PM EDT us Cecilia Terry MD LAB BLOOD ORDERABLES Final Resul t [facility] [address] [place] [address], * (ABNORMAL) Vitamin D 25 hydroxy (07/26/2024 1:45 PM EDT) Vit D, 25-Hydroxy 8.1(L) 30.0 - 80.0 ng/mL LAB CHEMISTRY METHOD 07/26/2024 5:03 PM EDT [facility] Blood Venous blood specimen / Unknown Venipuncture / Unknown 07/26/2024 1:45 PM EDT 07/26/2024 1:45 PM EDT us Cecilia Terry MD LAB BLOOD ORDERABLES Final Resul t [facility] [address] [place] [address], [place] [phone] * XR Chest 2 Views (07/26/2024 1:32 PM EDT) Anatomical Region Laterality Modality Body Radiographic Liz ging 07/26/2024 5:23 PM EDT Impressions 07/26/2024 5:24 PM EDT No acute cardiopulmonary process. -------- FINAL REPORT -------- Dictated By: Beulah Killian Dictated Date: 07/26/2024 17:23 ET Assigned Physician: Beulah Killian Reviewed and Electronically Signed By: Beulah Killian Signed Date: 07/26/2024 17:24 ET Workstation ID: [id number] Transcribed By: Self Edit Transcribed Date: 07/26/2024 [...] Signed Date: 07/26/2024 17:24 ET Workstation ID: [id number] Transcribed By: Self Edit Transcribed Date: 07/26/2024 [...] is recommended in 1 year. MAMMO LOCATION: [facility], [address] [place] [address], [id number], . -------- FINAL REPORT -------- Dictated By: Elle Key Dictated Date: 06/18/2024 16:46 ET Assigned Physician: Elle Key Reviewed and Electronically Signed By: Elle Key Signed Date: 06/18/2024 16:49 ET Workstation ID: [id number] Transcribed By: Self Edit Transcribed Date: 06/18/2024 [...] is recommended in 1 year. MAMMO LOCATION: [facility], [address] [place] [address], [id number], . -------- FINAL REPORT -------- Dictated By: Elle Key Dictated Date: 06/18/2024 16:46 ET Assigned Physician: Elle Key Reviewed and Electronically Signed By: Elle Key Signed Date: 06/18/2024 16:49 ET Workstation ID: [id number] Transcribed By: Self Edit Transcribed Date: 06/18/2024 16:46 ET Roberto CARMEN IMG BI PROCEDURES Final Result * (ABNORMAL) Lipid panel (01/21/2023) LDL/HDL Ratio 4 0 - 4 Triglycerides 103 0 - 150 mg/dL Cholesterol 218(A) 0 - 200 mg/dL HDL 62 >=40 mg/dL LDL Cholesterol 136(A) 0 - 100 mg/dL Blood Venous blood specimen / Unknown Historical Provider LAB BLOOD ORDERABLES Nina l Result * Cervical Cancer Screening: HPV (01/06/2022) Pathologist [facility] Cervical Cancer Screening: HPV Negative, Abstracted Historical Provider HEALTH MAINTENANCE Final Result * Hepatitis C Screening (09/18/2014) Pathologist [facility] Hepatitis C Screening Abstracted Historical Provider HEALTH MAINTENANCE Final Result * HIV Screening (04/12/2011) Pathologist [facility] HIV Screening Abstracted Historical Provider HEALTH MAINTENANCE Final Result from Last 3 Months or Most Recently Relevant to Health Maintenance Insurance [facility] Care Teams Livestock Farmworker Relationship Specialty Start Date End Date Cecilia Terry MD [address] [place] [address] PCP - General Internal Medicine 09/02/20
[2024-09-20] MEDS: gadobutroL 10 ML VIAL IVPUSH (11:11)
== END 2024-09-20 10:30 | disposition home or self-care (01) ==
LOC: HO.MRI 10:29
PROVIDERS: PCP Internal Medicine; Visit Provider Nurse Practitioner Family
DX: R90.89 Other abnormal findings on diagnostic imaging of central nervous system (principal)
CPT/HCPCS: 70553; A9585

== ENCOUNTER 2024-10-19 08:07 | Outpatient (AMB) | payer OTHER, SELFPAY ==
--- NOTE | 2024-10-19 08:05 | MHC.OFFVIS ---
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: No Accompanied by: Self / Same As Patient Allergies No Known Allergies (NKA) Allergy (Mild, Verified 10/19/24 08:05) NKA Medication List - Last Reconciled 10/19/24 by LES Jerome ibuprofen 600 mg PO Q6H PRN magnesium oxide 400 mg PO BEDTIME 90 days naproxen 375 mg PO BID 10 days naratriptan take 1/2 - 1 tab at onset of headache; if no relief may repeat 1 tab after at least 4 hrs; max = 2 tabs/24 hrs orally PRN; 30 days nitrofurantoin macrocrystal 50 mg PO ONCE 90 days nitrofurantoin macrocrystal 100 mg PO BID 7 days pantoprazole 40 mg PO DAILY riboflavin (vitamin B2) 400 mg PO DAILY 90 days rimegepant (Nurtec ODT) 75 mg PO ONCE PRN 30 days MDD 1 tab HPI Comments Details: 44-yr-old female presents for televideo visit to discuss FMLA paperwork for migraine without aura. Patient requesting FMLA paperwork be completed for intermittent absences from work due to severe migraine attacks, up to 1 episode per week lasting 3 dose, as well as for follow-up Neurology, Rheumatology, Endocrinology appointments. Patient also requests a refill of the naratriptan. Patient states that when she takes the naratriptan with Nurtec is more efficacious than when taking either alone. 08/02/2024, previous HPI: She is scheduled to see rheumatology in October. She is still not taking Plaquenil She also has been having days of skin burning, internal burning, internally activated. Her menstrual cycle has been a bit more irregular- spotting more. She has a DIPLOMATIC INTERPRETER appt coming up. Her HST did not show sleep apnea. She does endorse lifelong frequent nocturnal arousals and mild intermittent States her RLS s/s are mild. She had endocrinology consult- was advised to see [facility] for further eval however this is outside of her insurance's network. Pt denies diplopia, vision changes. Pt reports her migraines are about the same as before. She may not have a migraine for 2 weeks, but then out of the blue she will have severe debilitating migraine attacks. She has had to miss work last for the more severe migraine. She has started prn Nurtec- is effective but only receives 8 tabs per month. Uses naratriptan as well- effect varies. Baseline headache characteristics- Varies, Mod-Severe, throbbing, stabbing starting in bilateral lower occipital region and moves into bilateral temples/frontal region and then the whole head a/w photophobia, phonophobia, nausea, vomiting if severe, not right in space dizziness, brain fog, fatigue, worsening left facial paresthesias, speech slurring, activity intolerance. 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 F/u pituitary studies lab work was WNL. 10/10/2023, HST showed AHI < 1 hr, average SpO2 93%, w/ O2 bulmaro 78% (however SpO2 < 88% was recorded at 0 min). Previous work-up: 05/02/22 06/10/23 07/27/23 12:52 09:52 07:36 C-Reactive Protein 0.13 C-React Prot High Sens 2.4 Vitamin B12 464 Folate 8.7 TSH 1.20 Free T4 0.97 FSH 2.3 Luteinizing Hormone 2.3 Prolactin 7.9 Beta HCG, Quant < 2 Rheumatoid Factor < 13.0 JOSE G Screen POSITIVE A JOSE G Titer 1:80 H JOSE G Titer 2 1:80 H JOSE G Pattern A JOSE G Pattern 2 A 07/06/23, MR/MR head/brain wo/w con IMPRESSION: There is an expansile partially empty sella. 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 04/29/2022, Lumbar Puncture: OP-19 cmH2O w/ normal CSF studies. [facility] Medical History Microscopic hematuria Alopecia areata GERD (gastroesophageal reflux disease) Endometriosis IBS (irritable bowel syndrome) Surgical History No pertinent past surgical history Family History Mother No problems noted. 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 Physical Exam Const General: cooperative and no acute distress Orientation/consciousness: patient oriented x3 Resp Effort & Inspection: normal respiratory effort and able to speak in complete sentences Neuro General: patient oriented x3 Cognition (Neuro): normal cognition Psych Appearance: grossly normal Mental Status: mental status grossly normal Affect: normal affect Attitude: cooperative Telehealth Telehealth Telehealth Platform: [employer] Location of provider rendering services: practice address Location of patient: address on file Patient Identification confirmed using: Name, : Yes Telehealth method: video Patient verbally consented to treatment: Yes Patient verbally consented to billing insurance company: Yes Patient informed of any privacy concerns related to visit: Yes Minutes spent on Phone/Video with Pt.: 16 Assessment & Plan Assessment & Plan (1) Migraine: Comment: new onset headache w/ migrainous s/s, as well as worsening left facial paresthesias and speech difficulties- ? IIH, ? migraine w/ aura, ? headache attack exacerbating underlying trigeminal neuropathy process Code(s): G43.909 - Migraine, unspecified, not intractable, without status migrainosus Category: Medical (2) Pituitary cyst: Code(s): E23.6 - Other disorders of pituitary gland Category: Medical (3) Facial paresthesia: Comment: left temporal/jaw region. Not a/w facial pain, bruxism, or painful chewing. ? trigeminal neuropathic process. Code(s): R20.2 - Paresthesia of skin Category: Medical (4) Fatigue: Code(s): R53.83 - Other fatigue Category: Medical Plan FMLA paperwork completed. Refilled naratriptan, may take would p.r.n. Nurtec. Follow-up with endocrinology in rheumatology as scheduled Follow-up as scheduled or sooner as needed Medications: New naratriptan take 1/2 - 1 tab at onset of headache; if no relief may repeat 1 tab after at least 4 hrs; max = 2 tabs/24 hrs orally PRN; 12 tabs 6RF migraine headache 30 days Coding Level of Care Code Est Pt Level 3 (15317) Diagnoses Migraine G43.909 Pituitary cyst E23.6 Facial paresthesia R20.2 Fatigue R53.83
--- OUTSIDE RECORDS SUMMARY | 2024-10-19 08:11 | XMS_ITS | Clinical Summary ---
Author Organization [facility] [address] [place] [address] [place] [phone] Phone Care Team Providers Care Contracts Paralegal Name Role Phone Cecilia Terry MD Primary Care Provider [phone] Allergies No known active allergies Medications ibuprofen [...] week. 8 capsule 5 09/22/19 25 Active Problems Problem Noted Date Diagnosed Date SLE (systemic lupus erythema tosus) ([facility] V24, [facility] V28) 07/20/2024 Endometriosis 03/28/2024 Vitamin D deficiency 12/30/2022 Chronic nonintractable headache 03/02/2022 Chiari I malformation ([facility] V24, [facility] V28) 09/29/2021 Overview (06/07/2024): No surgery will be recommended for this. GERD (gastroesophageal reflux disease) IBS (irritable bowel syndrome) 12/17/2020 Microscopic hematuria 06/17/2014 Overview (03/28/2024): Follows Dr. Freda reyes 06/05/2010 Encounters Date Type Department Care Team Description 07/26/2024 1:25 PM EDT - 07/26/2024 11:59 PM EDT Hospital Encounter [address] [phone] Rib pain Discharge Disposition: Home or Self Care 07/20/2024 10:00 AM EDT Office Visit Adult Medicine [address] [phone] Cecilia Terry MD Gastroesophageal reflux disease without esophagitis (Primary Dx); Rib pain; Vitamin D deficiency; Systemic lupus erythematosus, unspecified SLE type, unspecified organ involvement status ([facility] V24, [facility] V28) 07/19/2024 Nurse Triage Adult Medicine [address] [phone] Maday Jerome, TERESA from Last 3 Months Immunizations Name Administration Dates Next Due Hepatitis B (Ysksrkw-K-Pkzzr , Recombivax HB-Adult) 19yo and older 12/17/2020 [...] (gastroesophageal reflux disease) SLE (systemic lupus erythematosus) ([facility] V24, [facility] V28) 07/20/2024 Family History Medical [...] 82 07/20/2024 9:54 AM EDT Temperature 36.2 C (97.1 F) 07/20/2024 9:54 AM EDT Respiratory Rate 16 07/20/2024 9:54 AM EDT [...] unspecified SLE type, unspecified organ involvement status ([facility] V24, [facility] V28) VITAMIN D 25 HYDROXY Routine 07/26/2024 1:45 PM EDT Vitamin D deficiency CBC AND DIFFERENTIAL Routine 07/26/2024 1:45 PM EDT Systemic lupus erythematosus, unspecified SLE type, unspecified organ involvement status ([facility] V24, [facility] V28) XR CHEST 2 VIEWS Routine 07/26/2024 1:32 PM EDT Rib pain MG MAMMO DIGITAL SCREENING W TRICIA BILAT Routine 06/16/2024 8:15 AM EST Encounter for screening mammogram for breast cancer LIPID PANEL Routine 01/21/2023 HPV Routine 01/06/2022 HEPATITIS C SCREENING Routine 09/18/2014 HIV SCREENING Routine 04/12/2011 from Last 3 Months or Most Recently Relevant to Health Maintenance Results * CBC auto differential (07/26/2024 1:45 PM EDT) WBC 7.7 4.8 - 10.8 K/mcL LAB HEMETOLOGY METHOD 07/26/2024 4:37 PM EDT [facility] RBC 4.30 3.80 - 4.80 M/mcL LAB HEMETOLOGY METHOD 07/26/2024 4:37 PM EDT [facility] Hemoglobin 12.7 11.5 - 16.0 g/dL LAB HEMETOLOGY METHOD 07/26/2024 4:37 PM EDT [facility] Hematocrit 38.7 35.0 - 47.0 % LAB HEMETOLOGY METHOD 07/26/2024 4:37 PM [facility] MCV 91.1 79.0 - 98.0 FL LAB HEMETOLOGY METHOD [facility] MCH 29.9 27.0 - 32.0 pcg LAB HEMETOLOGY METHOD 07/26/2024 4:37 PM [facility] MCHC 32.8 32.0 - 37.0 g/dL LAB HEMETOLOGY METHOD 07/26/2024 4:37 PM [facility] RDW 12.5 11.0 - 15.0 % LAB HEMETOLOGY METHOD 07/26/2024 4:37 PM [facility] Platelets 263 130 - 400 K/mcL LAB HEMETOLOGY METHOD 07/26/2024 4:37 PM [facility] MPV 11.0 7.0 - 11.0 FL LAB HEMETOLOGY METHOD 07/26/2024 4:37 PM [facility] NRBC 0.0 <1.0 % LAB HEMETOLOGY METHOD 07/26/2024 4:37 PM [facility] NRBC Absolute 0.00 <0.10 K/mcL LAB HEMETOLOGY METHOD 07/26/2024 4:37 PM [facility] Neutrophils Relative 60.6 % LAB HEMETOLOGY METHOD 07/26/2024 4:37 [facility] Lymphocytes Relative 31.6 % LAB HEMETOLOGY METHOD 07/26/2024 4:37 PM [facility] Monocytes Relative 6.1 % LAB HEMETOLOGY METHOD 07/26/2024 4:37 [facility] Eosinophils Relative 1.2 % LAB HEMETOLOGY METHOD 07/26/2024 4:37 PM EDT [facility] Basophils Relative 0.1 % LAB HEMETOLOGY METHOD 07/26/2024 4:37 PM EDT [facility] Immature Granulocytes Relative 0.4 % LAB HEMETOLOGY METHOD 07/26/2024 4:37 PM EDT [facility] Neutrophils Absolute 4.65 1.50 - 7.00 K/mcL LAB HEMETOLOGY METHOD 07/26/2024 4:37 PM EDT [facility] Lymphocytes Absolute 2.43 1.00 - 5.00 K/mcL LAB HEMETOLOGY METHOD 07/26/2024 4:37 PM EDT [facility] Monocytes Absolute 0.47 0.20 - 1.00 K/mcL LAB HEMETOLOGY METHOD 07/26/2024 4:37 PM EDT [facility] Eosinophils Absolute 0.09 0.00 - 0.50 K/mcL LAB HEMETOLOGY METHOD 07/26/2024 4:37 PM EDT [facility] Basophils Absolute 0.01 0.00 - 0.20 K/mcL LAB HEMETOLOGY METHOD 07/26/2024 4:37 PM EDT [facility] Immature Granulocytes Absolute 0.03 0.00 - 0.03 K/mcL LAB HEMETOLOGY METHOD 07/26/2024 4:37 PM EDT [facility] Blood Venous blood specimen / Unknown Venipuncture / Unknown 07/26/2024 1:45 PM EDT 07/26/2024 1:45 PM EDT us Cecilia Terry MD LAB BLOOD ORDERABLES Final Resul t [facility] [address] [place] [address], * (ABNORMAL) Vitamin D 25 hydroxy (07/26/2024 1:45 PM EDT) Vit D, 25-Hydroxy 8.1(L) 30.0 - 80.0 ng/mL LAB CHEMISTRY METHOD 07/26/2024 5:03 PM EDT [facility] Blood Venous blood specimen / Unknown Venipuncture / Unknown 07/26/2024 1:45 PM EDT 07/26/2024 1:45 PM EDT us Cecilia Terry MD LAB BLOOD ORDERABLES Final Resul t [facility] [address] [place] [address], [place] [phone] * XR Chest 2 Views (07/26/2024 1:32 PM EDT) Anatomical Region Laterality Modality Body Radiographic Liz ging 07/26/2024 5:23 PM EDT Impressions 07/26/2024 5:24 PM EDT No acute cardiopulmonary process. -------- FINAL REPORT -------- Dictated By: Beulah Killian Dictated Date: 07/26/2024 17:23 ET Assigned Physician: Beulah Killian Reviewed and Electronically Signed By: Beulah Killian Signed Date: 07/26/2024 17:24 ET Workstation ID: [id number] Transcribed By: Self Edit Transcribed Date: 07/26/2024 17:23 ET Narrative 07/26/2024 5:24 PM EDT HISTORY: chest wall pain TECHNIQUE: PA and lateral radiographs of the chest COMPARISON: None FINDINGS: There is a normal cardiomediastinal silhouette. The lungs are clear. Mild degenerative changes of the thoracic spine. Procedure [...] Signed Date: 07/26/2024 17:24 ET Workstation ID: [id number] Transcribed By: Self Edit Transcribed Date: 07/26/2024 [...] is recommended in 1 year. MAMMO LOCATION: [facility], [address] [place] [address], [id number], . -------- FINAL REPORT -------- Dictated By: Elle Key Dictated Date: 06/18/2024 16:46 ET Assigned Physician: Elle Key Reviewed and Electronically Signed By: Elle Key Signed Date: 06/18/2024 16:49 ET Workstation ID: [id number] Transcribed By: Self Edit Transcribed Date: 06/18/2024 16:46 ET Narrative 06/18/2024 4:49 PM EST EXAM: Screening Mammogram CLINICAL: 44 years old, Female, routine annual exam. History of 2 benign right ultrasound-guided core biopsies [...] is recommended in 1 year. MAMMO LOCATION: [facility], [address] [place] [address], [phone], . -------- FINAL REPORT -------- Dictated By: Elle Key Dictated Date: 06/18/2024 16:46 ET Assigned Physician: Elle Key Reviewed and Electronically Signed By: Elle Key Signed Date: 06/18/2024 16:49 ET Workstation ID: [id number] Transcribed By: Self Edit Transcribed Date: 06/18/2024 16:46 ET Roberto Lee [facility] IMG BI PROCEDURES Final Result * (ABNORMAL) Lipid panel (01/21/2023) Pathologist [facility] LDL/HDL Ratio 4 0 - 4 Triglycerides 103 0 - 150 mg/dL Cholesterol 218(A) 0 - 200 mg/dL HDL 62 >=40 mg/dL LDL Cholesterol 136(A) 0 - 100 mg/dL Blood Venous blood specimen / Unknown Historical Provider LAB BLOOD ORDERABLES Nina l Result * Cervical Cancer Screening: HPV (01/06/2022) Pathologist [facility] Cervical Cancer Screening: HPV Negative, Abstracted Historical Provider HEALTH MAINTENANCE Final Result * Hepatitis C Screening (09/18/2014) Pathologist [facility] Hepatitis C Screening Abstracted Historical Provider HEALTH MAINTENANCE Final Result * HIV Screening (04/12/2011) Pathologist [facility] HIV Screening Abstracted Historical Provider HEALTH MAINTENANCE Final Result from Last 3 Months or Most Recently Relevant to Health Maintenance Insurance [facility] Care Teams Contracts Paralegal Relationship Specialty Start Date End Date Cecilia Terry MD [address] [place] [address] PCP - General Internal Medicine 09/02/20
== END 2024-10-19 08:32 | disposition home or self-care (01) ==
PROVIDERS: PCP Internal Medicine; Visit Provider Nurse Practitioner Family
DX: G43.909 Migraine, unspecified, not intractable, without status migrainosus (principal); E23.6 Other disorders of pituitary gland; R20.2 Paresthesia of skin; R53.83 Other fatigue
CPT/HCPCS: 99213

== ENCOUNTER 2024-11-13 12:29 | Outpatient (AMB) | payer OTHER, SELFPAY ==
--- NOTE | 2024-11-13 12:31 | A.OFFVIS_ITS ---
Vital Signs 11/13/24 12:33 Height 4 ft 11 in Weight 175 lb 4 oz BMI 35.4 BP 130/100 H Blood Pressure Location Rt brachial Position Sitting Pulse 68 Pulse Source Pulse Oximeter Pulse Oximetry (%) 100 Oxygen Delivery Method Room Air Intake Visit Reasons: UCTD Intake Note: Patient presents today for JOSE G +ve/CM Allergies No Known Allergies (NKA) Allergy (Mild, Verified 11/13/24 12:31) NKA HPI HPI UCTD: Details: She had mood irritability and was seeing lights blinking on both HCQ and topamax. She took hydroxychloroquine for 3 months. She started both HCQ and topamax together. She discontinued both medications. She has random headaches few times a week. She has a headache that lasts days. She may have a week and a half without headaches. Denies migraines. She has pain in her ribs, ankles and elbows. She has no pain today. No fevers, oral ulcers, rash, dyspnea, pleurisy, urinary symptoms, dry mouth, joint swelling, +bald spot (new) in the last two months. +Hair loss She had swelling and stiffness in bilateral ankles and feet lasted 5 days after vacation. No recent infection. She took OCP to reduce menstruation while on vacation, which she did not take before. Chronic dry eyes dye to contacts. [facility] Medical History Microscopic hematuria Alopecia areata GERD (gastroesophageal reflux disease) Endometriosis IBS (irritable bowel syndrome) Surgical History No pertinent past surgical history Family History Mother No problems noted. 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 Good respiratory effort Skin: She has large area without hair growth frontal skull and thinning of skin. No rash MSK: No tenderness of any joint. No synovitis. Normal range of motion of upper extremities and lower extremities. She has cyst present on left midfoot. Vital Signs: Last Vital Signs Pulse 68 11/13/24 12:33 BP 130/100 H 11/13/24 12:33 Pulse Ox 100 11/13/24 12:33 Oxygen Delivery Method Room Air 11/13/24 12:33 BMI result Body Mass Index 35.4 Assessment & Plan Assessment & Plan (1) Systemic lupus erythematosus: Comment: 1:80 low titer positive with borderline positive double-stranded DNA Crithidia 01:20 (N<1:10), low C3 and C4 2023 with recurrent headaches since she was a child progressing to migraines, alopecia since childhood and recent worsening of hair loss. She has had recurrence of alopecia on her frontal scalp. Recently she experienced joint pain and swelling with stiffness in bilateral ankles and feet 3 weeks ago after returning from vacation with prior history of episodic joint pain. Self resolved. She has residual cyst on left midfoot. In the past she was on both hydroxychloroquine and topiramate at the same time, which caused side effects of mood irritability and seeing blinking lights. It is unclear which medication contributed to the side effect. If she continues to have SLE serological disease activity, she is agreeable to try lower dose of hydroxychloroquine. We discussed benefits and side effects of hydroxychloroquine. Answered patient's questions to her satisfaction. Code(s): M32.9 - Systemic lupus erythematosus, unspecified Category: Medical Qualifiers: Systemic lupus erythematosus organ involvement: other Systemic lupus erythematosus type: unspecified Qualified Code(s): M32.19 - Other organ or system involvement in systemic lupus erythematosus Plan: Labs to assess lupus disease activity ordered If she continues to have lupus disease activity, I will start hydroxychloroquine 200 mg daily. If patient tolerates hydroxychloroquine 200 mg daily, we will then increase to 400 mg daily to optimize her dose for weight X-ray bilateral feet ordered Wear supportive footwear I recommend that she contact PCP for Dermatology consultation for management of alopecia with local intralesional steroids as she has had benefit with this treatment in the past in resolving alopecia PCP follow-up for evaluation of arrhythmia/nervous system overstimulation/anxiety Return to clinic in 3 months (2) Bilateral swelling of feet: Code(s): M79.89 - Other specified soft tissue disorders Category: Medical Plan: X-ray bilateral feet ordered (3) Joint pain: Code(s): M25.50 - Pain in unspecified joint Category: Medical Qualifiers: Joint pain location: unspecified Qualified Code(s): M25.50 - Pain in unspecified joint Plan: See above Plan See above Orders: Orders Complete Blood Count Auto Diff Today R76.8 - Other specified abnormal immunological findings in serum Alanine Aminotransferase Today M32.9 - Systemic lupus erythematosus, unspecified, R76.8 - Other specified abnormal immunological findings in serum Aspartate Amino Transferase Today M32.9 - Systemic lupus erythematosus, unspecified, R76.8 - Other specified abnormal immunological findings in serum Creatinine Today M32.9 - Systemic lupus erythematosus, unspecified, R76.8 - Other specified abnormal immunological findings in serum Erythrocyte Sedimentation Rate Today M32.9 - Systemic lupus erythematosus, unspecified, R76.8 - Other specified abnormal immunological findings in serum UA w Microscopic Today M32.9 - Systemic lupus erythematosus, unspecified, R76.8 - Other specified abnormal immunological findings in serum Anti DNA DS Antibody Today M32.9 - Systemic lupus erythematosus, unspecified, R76.8 - Other specified abnormal immunological findings in serum XR Foot Soy 3V Today M79.89 - Other specified soft tissue disorders Cyclic Citrullinated Peptide Today M25.50 - Pain in unspecified joint Rheumatoid Factor Today M25.50 - Pain in unspecified joint C Reactive Protein Today M32.9 - Systemic lupus erythematosus, unspecified, R76.8 - Other specified abnormal immunological findings in serum Protein Creatinine Ratio, Ur Today M32.9 - Systemic lupus erythematosus, unspecified, R76.8 - Other specified abnormal immunological findings in serum Complement C4 Today M32.9 - Systemic lupus erythematosus, unspecified, R76.8 - Other specified abnormal immunological findings in serum Complement C3 Today M32.9 - Systemic lupus erythematosus, unspecified, R76.8 - Other specified abnormal immunological findings in serum DNA Double Stranded-Crithidia Today M32.9 - Systemic lupus erythematosus, unspecified, R76.8 - Other specified abnormal immunological findings in serum Coding Level of Care Code Est Pt Level 4 (04234) Complex EM visit Add On G2211 Diagnoses Systemic lupus erythematosus with other organ involvement, unspecified SLE type M32.19 Systemic lupus erythematosus organ involvement: other Systemic lupus erythematosus type: unspecified Bilateral swelling of feet M79.89 Arthralgia, unspecified joint M25.50 Joint pain location: unspecified
[2024-11-13 12:33] VITALS: BP 130/100; PULSE 68; O2SAT 100; BMI 35.4
--- OUTSIDE RECORDS SUMMARY | 2024-11-13 13:30 | XMS_ITS | Clinical Summary ---
Author Organization [facility] [address] [place] [address] [place] [phone] Phone Care Team Providers Care Whiting Can Worker Name Role Phone Cecilia Terry MD Primary Care Provider [phone] Allergies No known active allergies Medications ibuprofen [...] after same meal every day. 4 Active Active Problems Problem Noted Date Diagnosed Date SLE (systemic lupus erythema tosus) (CMS/HCC V24, CMS/HCC V28) 07/20/2024 Endometriosis 03/28/2024 Vitamin D deficiency 12/30/2022 Chronic nonintractable headache 03/02/2022 Chiari I malformation ([facility] V24, [facility] V28) 09/29/2021 Overview (06/07/2024): No surgery will be recommended for this. GERD (gastroesophageal reflux disease) IBS (irritable bowel syndrome) 12/17/2020 Microscopic hematuria 06/17/2014 Overview (03/28/2024): Follows Dr. Freda Mcfadden areata 06/05/2010 Immunizations Name Administration Dates Next Due Hepatitis B (Vhgwiuz-L-Jmfcf , Recombivax HB-Adult) 19yo and older 12/17/2020 [...] Comments COLONOSCOPY 03/03/2010 Normal OTHER SURGICAL HISTORY 2015 D&C Polyp removed UPPER GASTROINTESTINAL ENDOSCOPY 01/03/2019 dr. alcazar - gastritis STEREOTACTIC CORE BIOPSY 04/25/2023 - 04/24/2024 Right Medical History Medical History Date Comments Endometriosis IBS (irritable bowel syndrome) 12/17/2020 GERD (gastroesophageal reflux disease) SLE (systemic lupus erythematosus) ([facility] V24, [facility] V28) 07/20/2024 Family History Medical History Relation [...] 5 Years) and At-Risk Patients (6 to 49 Years) (1 of 2 - PCV) 2001 Hepatitis B Vaccines (2 of 3 - 19+ 3-dose series) 01/14/2021 12/17/2020 Social Influencers of Health Screening 03/28/2022 COVID-19 Vaccine (3 - season) 2023 09/27/2020, 08/29/2020 Depression Screening 04/25/2024 DTaP,Tdap,and Td Vaccines (2 - Td or Tdap) 07/31/2024 07/31/2014 Influenza Vaccine (#1) 2024 05/02/2018 Breast Cancer Screening 06/16/2026 06/16/19 25, 06/23/2023, 06/09/2023, Additional history exists Cervical Cancer [...] Procedure Name Priority Date/Time Associated Diagnosis Comments MG MAMMO DIGITAL SCREENING W TRICIA BILAT Routine 06/16/2024 8:15 AM EST Encounter for screening mammogram for breast cancer LIPID PANEL Routine 01/21/2023 HPV Routine 01/06/2022 HEPATITIS C SCREENING Routine 09/18/2014 HIV SCREENING Routine 04/12/2011 from Last 3 Months or Most Recently Relevant to Health Maintenance Results * MG Mammo Digital Screening w Tricia bilat (06/16/2024 8:15 AM EST) Anatomical Region Laterality Modality Breast Bilateral Mammography 06/18/2024 4:46 PM EST Impressions 06/18/2024 4:49 PM EST No mammographic evidence of malignancy. BREAST DENSITY: B - There are scattered areas of fibroglandular density. BI-RADS CATEGORY: 1 - NEGATIVE RECOMMENDATION: Screening bilateral mammogram is recommended in 1 year. MAMMO LOCATION: [facility], [address] [place] [address], [phone], . -------- FINAL REPORT -------- Dictated By: Elle Key Dictated Date: 06/18/2024 16:46 ET Assigned Physician: Elle Key Reviewed and Electronically Signed By: Elle Key Signed Date: 06/18/2024 16:49 ET Workstation ID: [id number] Transcribed By: Self Edit Transcribed Date: 06/18/2024 [...] is recommended in 1 year. MAMMO LOCATION: [facility], [address], [place], [address], . -------- FINAL REPORT -------- Dictated By: Elle Key Dictated Date: 06/18/2024 16:46 ET Assigned Physician: Elle Key Reviewed and Electronically Signed By: Elle Key Signed Date: 06/18/2024 16:49 ET Workstation ID: [id number] Transcribed By: Self Edit Transcribed Date: 06/18/2024 16:46 ET Roberto Lee CN IMG BI PROCEDURES Final Result * (ABNORMAL) Lipid panel (01/21/2023) [facility] LDL/HDL Ratio 4 0 - 4 Triglycerides 103 0 - 150 mg/dL Cholesterol 218(A) 0 - 200 mg/dL HDL 62 >=40 mg/dL LDL Cholesterol 136(A) 0 - 100 mg/dL Blood Venous blood specimen / Unknown Result [facility] Provider LAB BLOOD ORDERABLES Nina l Result * Cervical Cancer Screening: HPV (01/06/2022) [facility] Cervical Cancer Screening: HPV Negative, Abstracted Result [facility] Provider HEALTH MAINTENANCE Final Result * Hepatitis C Screening (09/18/2014) [facility] Hepatitis C Screening Abstracted [facility] Provider HEALTH MAINTENANCE Final Result * HIV Screening (04/12/2011) [facility] HIV Screening Abstracted Result [facility] Provider HEALTH MAINTENANCE Final Result from Last 3 Months or Most Recently Relevant to Health Maintenance Insurance [facility] Care Teams Whiting Can Worker Relationship Specialty Start Date End Date Cecilia Terry MD [address] [place] [address] PCP - General Internal Medicine 09/02/20
--- OUTSIDE RECORDS SUMMARY | 2024-11-13 13:30 | XMS_ITS | Clinical Summary ---
Author Organization [facility] Address [address] [place] [phone] Phone Care Team Providers Care Admissions Advisor Name Role Phone Cecilia Terry MD Primary Care Provider [phone] Social History Tobacco Use Types Packs/Day Years Used Date Smoking Tobacco: Never Assessed Education Answer Date Recorded Are you interested in more education? Not on blake e 05/23/2024 Are you concerned about learning? Not on file 05/23/2024 No 05/23/2024 No 05/23/2024 Digital Access Answer Date Recorded No 05/23/2024 No 05/23/2024 Reliable internet access at home? Not on file 05/23/2024 Device with a working camera? Not on file Comments Unknown Sex and Gender Information Value Date Recorded Sex Assigned at Female 05/15/2024 2:32 PM EST Legal Sex Female 2:27 PM EST Gender Identity Female 05/15/2024 2:32 PM EST Sexual Orientation Straight 05/15/2024 2: 32 PM EST Plan of Treatment Health Maintenance Due Date Last Done Comments Adult Td,Tdap Booster 1982 DEPRESSION SCREENING 1994 SMOKING Hx and SMOKELESS TOB ACCO SCREENING 1995 HEPATITIS C SCREENING 01/18/2000 HIV ONE-TIME SCREENING (18-6 5 YEARS) 01/18/2000 PAP SMEAR 2003 MAMMOGRAM 2022 COVID-19 VACCINE (2023-2 5 season) 2023 HEPATITIS A VACCINES Aged Out No long er eligible based on patient's age to complete this topic HIB VACCINES Aged Out No longer eligi ble based on patient's age to complete this topic MENINGOCOCCAL VACCINES (ACWY) Aged Out No longer eligible based on patient's age to complete this topic MENINGOCOCCAL VACCINES (B) Aged Out N o longer eligible based on patient's age to complete this topic PNEUMOCOCCAL VACCINES (0-49 years) Aged Out No longer eligible based on patient's age to complete this topic Medical Devices Not on file Insurance Care Teams Admissions Advisor Relationship Specialty Start Date End Date Cecilia Terry MD [address] [place] [address] PCP - General Internal Medicine 05/15/24 Additional Source Comments The information contained in this document represents components of the legal health record. It is not the complete legal health record.[facility]
== END 2024-11-13 13:16 | disposition home or self-care (01) ==
LOC: HO.RHES 12:29
PROVIDERS: PCP Internal Medicine; Visit Provider Internal Medicine Rheumatology
DX: M32.19 Other organ or system involvement in systemic lupus erythematosus (principal); M79.89 Other specified soft tissue disorders; M25.50 Pain in unspecified joint
CPT/HCPCS: 99214; G2211

== ENCOUNTER 2024-11-14 | Outpatient (REF) | payer OTHER, SELFPAY ==
--- NOTE | ~2024-11-14 | XR_ITS ---
EXAMINATION: X-ray foot, bilaterally. CLINICAL INFORMATION: Other specified soft tissue. Swelling. TECHNIQUE: AP oblique and lateral views. COMPARISON: None FINDINGS: No acute cortical disruption or malalignment. No lytic or blastic lesions. Small spur, calcaneus left foot. No subcutaneous emphysema. No metallic or radiopaque foreign body. No gross joint effusion. XR/XR Foot Soy 3V IMPRESSION: No acute fracture or dislocation. No gross osteomyelitis by x-ray. Electronically signed by: Joseph Gurrola MD 11/14/2024 01:23 PM EDT
--- NOTE | ~2024-11-14 | US_ITS ---
EXAMINATION: US RETROPERITONEUM HISTORY: N20.0 - Calculus of kidney TECHNIQUE: Real-time grayscale ultrasound imaging of the kidneys was performed and images were reviewed. COMPARISON: Comparison is made with the prior examination dated 10/05/2023. FINDINGS: Right kidney: The right kidney measures 11.0 x 4.8 x 5.3 cm. Renal parenchymal echotexture and thickness are normal. There are no masses. There is a 3 mm nonobstructing calculus at the upper pole. There is no hydronephrosis. Left Kidney: The left kidney measures 10.0 x 4.7 x 3.9 cm. Renal parenchymal echotexture and thickness are normal. There are no masses. There is a 7 x 5 x 4 mm nonobstructing calculus in the interpolar region. The urinary bladder is unremarkable. Bilateral ureteral jets are identified. Before voiding, the urinary bladder measured 6.6 x 4.4 x 7.9 cm, for an estimated volume of 119 mL. After voiding, the urinary bladder measured 3.0 x 1.1 x 3.6 cm, for an estimated volume of 6.2 mL. US/US retroperitoneal comp IMPRESSION: 1. Bilateral nephrolithiasis as described. No hydronephrosis. 2. Post void bladder residual of 6.2 mL. Electronically signed by: Andre Meza MD 11/14/2024 02:23 PM EDT
[2024-11-14 12:59] LABS: MANUAL DIFF FLAG NO
[2024-11-14 13:36] LABS: Hematocrit 37.1 % (37.0-47.0); Hemoglobin 12.7 g/dl (12.0-16.0); Imm Gran Abs Auto 0.02 X10*3/uL (0.00-0.03); Imm Gran Pct Auto 0.3 % (0.0-0.4); Lymphocytes Absolute Auto 2.5 X10*3/uL (1.2-4.9); Mean Corpuscular HGB Conc 34.2 g/dl (31.0-35.0); Mean Corpuscular Hemoglobin 30.1 pg (27.0-33.0); Mean Corpuscular Volume 87.9 fL (80.0-98.0); NRBC Abs Auto 0.000 X10*3/uL (0.0-0.012); NRBC Pct Auto 0.0 /100WBC (0.0-0.2); Platelet Count 245 X10*3/uL (160-400); Red Blood Count 4.22 X10*6/uL (4.20-5.50); White Blood Count 7.3 X10*3/uL (4.8-10.8)
[2024-11-14 14:24] LABS: Alanine Aminotransferase 21 U/L (0-31); Aspartate Amino Transferase 25 U/L (5-31); Estimated Glomerular Filt Rate > 60
[2024-11-14 14:42] LABS: Appearance Urine Clear; Glucose Urine UA Negative (Negative); PH 6.0 (5.0-9.0); Specific Gravity - Urine 1.015 (1.005-1.025); UMIC TRIGGER UA YES
[2024-11-14 15:06] LABS: Total Protein Urine Random < 7 mg/dL (<12)
--- OUTSIDE RECORDS SUMMARY | 2024-11-20 08:17 | XMS_ITS | Clinical Summary ---
Author Organization [facility] Address [address] [facility] [address] [place] [phone] Phone Care Team Providers Care Fulfillment Associate Name Role Phone Cecilia Terry MD Primary Care Provider [phone] Social History Tobacco Use Types Packs/Day Years [...] Devices Not on file Insurance Care Teams Fulfillment Associate Relationship Specialty Start Date End Date Cecilia Terry MD [address] [place] [address] PCP - General Internal Medicine 05/15/24 Additional Source Comments The information contained in this document represents components of the legal health record. It is not the complete legal health record.[facility]
--- OUTSIDE RECORDS SUMMARY | 2024-11-20 08:17 | XMS_ITS | Clinical Summary ---
Author Organization [facility] [address] [place] [address] [place] [phone] Phone Care Team Providers Care Systems Analyst Name Role Phone Cecilia Terry MD Primary Care Provider [phone] Allergies No known active allergies Medications ibuprofen [...] Chronic nonintractable headache 03/02/2022 Chiari I malformation ([facility] V24, [facility] V28) 09/29/2021 Overview (06/07/2024): No surgery will be recommended for this. GERD (gastroesophageal reflux disease) IBS (irritable bowel syndrome) 12/17/2020 Microscopic hematuria 06/17/2014 Overview (03/28/2024): Follows Dr. Freda Mcfadden areata 06/05/2010 Immunizations Name Administration Dates Next Due Hepatitis B (Khuteld-Y-Nknsf , Recombivax HB-Adult) 19yo and older 12/17/2020 [...] (gastroesophageal reflux disease) SLE (systemic lupus erythematosus) ([facility] V24, [facility] V28) 07/20/2024 Family History Medical History Relation [...] is recommended in 1 year. MAMMO LOCATION: [facility], [address] [place] [address], [address], . -------- FINAL REPORT -------- Dictated By: Elle Key Dictated Date: 06/18/2024 16:46 ET Assigned Physician: Elle Key Reviewed and Electronically Signed By: Elle Key Signed Date: 06/18/2024 16:49 ET Workstation ID: [id number] Transcribed By: Self Edit Transcribed Date: 06/18/2024 [...] is recommended in 1 year. MAMMO LOCATION: [facility], [address], [place], [address], . -------- FINAL REPORT -------- Dictated By: Elle Key Dictated Date: 06/18/2024 16:46 ET Assigned Physician: Elle Key Reviewed and Electronically Signed By: Elle Key Signed Date: 06/18/2024 16:49 ET Workstation ID: [id number] Transcribed By: Self Edit Transcribed Date: 06/18/2024 16:46 ET Roberto Lee CN IMG BI PROCEDURES Final Result * (ABNORMAL) Lipid panel (01/21/2023) [facility] LDL/HDL Ratio 4 0 - 4 Triglycerides 103 0 - 150 mg/dL Cholesterol 218(A) 0 - 200 mg/dL HDL 62 >=40 mg/dL LDL Cholesterol 136(A) 0 - 100 mg/dL Blood Venous blood specimen / Unknown Result [facility] Provider LAB BLOOD ORDERABLES Nina l Result * Cervical Cancer Screening: HPV (01/06/2022) [facility] Cervical Cancer Screening: HPV Negative, Abstracted Result [facility] Provider HEALTH MAINTENANCE Final Result * Hepatitis C Screening (09/18/2014) [facility] Hepatitis C Screening Abstracted [facility] Provider HEALTH MAINTENANCE Final Result * HIV Screening (04/12/2011) [facility] HIV Screening Abstracted Result [facility] Provider HEALTH MAINTENANCE Final Result from Last 3 Months or Most Recently Relevant to Health Maintenance Insurance [facility] Care Teams Systems Analyst Relationship Specialty Start Date End Date Cecilia Terry MD [address] [place] [address] PCP - General Internal Medicine 09/02/20
--- OUTSIDE RECORDS SUMMARY | 2024-11-20 08:17 | XMS_ITS ---
Author Name [facility] Organization Unknown Care Team Organization Name Specialty Phone Email Start Date End Da te [facility] Cecilia Terry Primary Care 03/02/2022 4
[2024-11-21 11:23] LABS: DNAds, Crithidia Antibody Negative (Negative)
== END 2024-11-14 00:01 | disposition home or self-care (01) ==
LOC: HO.US
PROVIDERS: Absent Provider Internal Medicine Rheumatology; PCP Internal Medicine; Visit Provider Nurse Practitioner Family
DX: R76.8 Other specified abnormal immunological findings in serum (principal); M32.9 Systemic lupus erythematosus, unspecified; N20.0 Calculus of kidney; N39.0 Urinary tract infection, site not specified; M79.89 Other specified soft tissue disorders; M25.50 Pain in unspecified joint
CPT/HCPCS: 36415; 73630; 76770; 81001; 82565; 82570; 84156; 84450; 84460; 85025; 85652; 86140; 86160; 86200; 86225; 86255; 86431

== ENCOUNTER → 2024-11-14 12:57 | Outpatient (BNV) | payer OTHER, SELFPAY | PROVIDERS: Absent Provider Internal Medicine Rheumatology; PCP Internal Medicine; Visit Provider Radiology Diagnostic Radiology | DX: N20.0 Calculus of kidney (principal); R39.14 Feeling of incomplete bladder emptying; M79.89 Other specified soft tissue disorders | CPT/HCPCS: 73630; 76770 ==

== ENCOUNTER 2024-11-27 07:40 | Outpatient (AMB) | payer OTHER, SELFPAY ==
--- NOTE | 2024-11-27 07:41 | A.OFFVIS_ITS ---
Intake Visit Reasons: 3m/ US Intake Note: Patient presents today for follow up on: kidney stones Urology Medications: NITROFURANTOIN Blood Thinner: none Imaging done :11/14/2024 Client Experience Specialist Required: No Accompanied by: Self / Same As Patient Allergies No Known Allergies (NKA) Allergy (Mild, Verified 11/27/24 08:20) NKA Medication List - Last Reconciled 11/27/24 by BAMBI Hobson ibuprofen 600 mg PO Q6H PRN magnesium oxide 400 mg PO BEDTIME 90 days naproxen 375 mg PO BID 10 days naratriptan take 1/2 - 1 tab at onset of headache; if no relief may repeat 1 tab after at least 4 hrs; max = 2 tabs/24 hrs orally PRN; 30 days nitrofurantoin macrocrystal 50 mg PO ONCE 90 days nitrofurantoin macrocrystal 100 mg PO BID 7 days pantoprazole 40 mg PO DAILY riboflavin (vitamin B2) 400 mg PO DAILY 90 days rimegepant (Nurtec ODT) 75 mg PO ONCE PRN 30 days MDD 1 tab HPI Comments Details: Rule is a very pleasant 44-year-old female patient of Dr. Terry. She has a past medical history of alopecia areata, microscopic hematuria, GERD, endometriosis, and IBS. She presents to the office today for follow-up of her nephrolithiasis and recurrent urinary tract infections. In discussion with the patient today she reports having followed up with her framework developer last week and was told she possibly had a urinary tract infection. In review of patient's chart it does appear 2+ leukocytes negative nitrates at time of Rheumatology visit. In office urinalysis results reviewed with the patient today negative leukocytes negative nitrates in 3+ microscopic hematuria. However patient does endorse to currently being on her menses. She reports having had no UTI like symptoms. She is utilizing Macrobid postcoital and feels this has been helpful. Recent retroperitoneal ultrasound results were reviewed. 11/16 bilateral kidneys are normal in echotexture and thickness. There are no renal masses or hydronephrosis noted bilaterally. There is a 3 mm nonobstructing calculus at the upper pole of the right kidney. And a 4 mm nonobstructing calculus in the interpolar region of the left kidney. The urinary bladder is unremarkable. We did discussed potential causes of nephrolithiasis as well as recurrent urinary tract infections. We discussed further metabolic workup to include Litholink. During last office visit UA noted 3+ leukocytes however urine culture no growth. She does report minimal fluid intake. We did discussed the importance of adequate hydration relation to recurrent urinary tract infections as well as nephrolithiasis. She denies incontinence, nocturia, visible/gross hematuria, foul smelling urine, changes to urinary stream, flank pain, fever, and or chill s. She reports having followed up with Neurology and Topamax has since been discontinued as she believes this could be contributing to her longstanding history of nephrolithiasis. She does report feeling UTI like symptoms start shortly after sexual activity. All questions were answered. She otherwise offers no other issues or concerns at this time. [facility] Medical History Microscopic hematuria Alopecia areata GERD (gastroesophageal reflux disease) Endometriosis IBS (irritable bowel syndrome) Surgical History No pertinent past surgical history Family History Mother No problems noted. 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 Review of Systems Const All systems reviewed & are unremarkable except as noted in HPI and below Physical Exam Const General: cooperative, healthy appearing, comfortable, no acute distress, well developed, alert and awake Orientation/consciousness: patient oriented x3 Limitations: no limitations HEENT Head: Yes normal to inspection, Yes normocephalic and Yes atraumatic Ears: hearing grossly normal bilaterally Eyes General: appearance normal, both eyes and all related structures Neck Neck: Yes normal visual inspection and Yes trachea midline Chest Chest palpation & inspection: normal inspection of the chest Resp Effort & Inspection: normal respiratory effort and able to speak in complete sentences Cardio Rate: regular rate GI Inspection: Yes normal to inspection General: Yes no CVA tenderness Back/Spine/Pelvis Back: no CVA tenderness Skin General skin exam: no rashes or lesions noted Neuro General: patient oriented x3 Extrem General: Yes normal to inspection Psych Appearance: grossly normal and well kempt Mental Status: mental status grossly normal Speech and movement: Normal speech and movement present and Clear speech present Affect: normal affect Attitude: cooperative Thought process: Normal thought process present Thought content: Normal thought content present Insight: Fair insight present (Psych) Judgement: Fair judgement present (Psych) Results AMB Urinalysis, Automated UA Leukoctes 0 Donny/uL Last Edit by BEAU Green on 11/27/24 07:53 UA Nitrite Negative Last Edit by BEAU Green on 11/27/24 07:53 UA Urobilinogen 3.5 mg/dL Last Edit by BEAU Green on 11/27/24 07:5 3 UA Protein 15 mg/dL Last Edit by BEAU Green on 11/27/24 07:53 UA pH 6.5 Last Edit by Colby Mercer CCM on 11/27/24 07:53 UA Blood 200 [place]/uL Last Edit by Colby Mercer CCM on 11/27/24 07:53 UA Specific [place] 1.015 Last Edit by Colby Mercer CCM on 11/27/24 07: 53 UA Ketone Negative Last Edit by BEAU Green on 11/27/24 07:53 UA Bilirubin 0 mg/dL Last Edit by BEAU Green on 11/27/24 07:53 UA Glucose 0 mg/dL Last Edit by Colby Mercer CCM on 11/27/24 07:53 Results Reviewed Results Reviewed: Laboratory Last Values Urine pH (Auto) 6.5 11/27/24 07:53 Specific [place] (Auto) 1.015 11/27/24 07:53 Urine Protein (Auto) 15 mg/dL 11/27/24 07:53 Glucose (UA)(Auto) 0 mg/dL 11/27/24 07:53 Urine Ketones (Auto) Negative 11/27/24 07:53 Urine Blood (Auto) 200 [place]/uL 11/27/24 07:53 Urine Nitrite (Auto) Negative 11/27/24 07:53 Urine Bilirubin (Auto) 0 mg/dL 11/27/24 07:53 Urine Urobilinogen (Auto) 3.5 mg/dL 11/27/24 07:53 Leukocyte Esterase (Auto) 0 Donny/uL 11/27/24 07:53 Date of Service: 11/14/24 FINDINGS: Right kidney: The right kidney measures 11.0 x 4.8 x 5.3 cm. Renal parenchymal echotexture and thickness are normal. There are no masses. There is a 3 mm nonobstructing calculus at the upper pole. There is no hydronephrosis. Left Kidney: The left kidney measures 10.0 x 4.7 x 3.9 cm. Renal parenchymal echotexture and thickness are normal. There are no masses. There is a 7 x 5 x 4 mm nonobstructing calculus in the interpolar region. The urinary bladder is unremarkable. Bilateral ureteral jets are identified. Before voiding, the urinary bladder measured 6.6 x 4.4 x 7.9 cm, for an estimated volume of 119 mL. After voiding, the urinary bladder measured 3.0 x 1.1 x 3.6 cm, for an estimated volume of 6.2 mL. IMPRESSION: 1. Bilateral nephrolithiasis as described. No hydronephrosis. 2. Post void bladder residual of 6.2 mL. Assessment & Plan Assessment & Plan (1) Nephrolithiasis: Code(s): N20.0 - Calculus of kidney Category: Medical (2) Recurrent urinary tract infection: Code(s): N39.0 - Urinary tract infection, site not specified Category: Medical Plan In office urinalysis results reviewed with the patient today; as noted above. Recent retroperitoneal ultrasound results reviewed with the patient today; as noted above. Continue postcoital antibiotic therapy as discussed. We discussed the importance of adequate hydration relation to nephrolithiasis as well as recurrent urinary tract infections. Start vitamin B6 as discussed and prescribed. Will obtain Litholink for further assessment evaluation. Discussed UTI prevention with D mannose supplement, vitamin-C, increasing fluid intake, behavioral therapy with timed voiding, perineal hygiene and postcoital voiding, and management of constipation with stool softeners and increased fiber intake. We discussed adding 1 oz of lemon juice to water daily Follow-up in 3 months with Litholink to be completed prior; or sooner with any issues, concerns, and or questions. Orders: Orders AMB Urinalysis Automated Today Z13.9 - Encounter for screening, unspecified URORISK Today N20.0 - Calculus of kidney Medications: New pyridoxine (vitamin B6) 100 mg PO DAILY 90 tabs 1RF 90 days Patient Instructions: The patient had an opportunity to ask questions regarding the treatment plan. All questions were answered. Physical exam, labs, and imaging were discussed and reviewed in detail. As well as risks, benefits, and discussion of treatment choices. No major barriers to understanding were identified. The patient expressed understanding and agreement with the above treatment plan. The patient was made aware they should contact our office by phone for worsening of their current condition, the appearance of new symptoms, or with any questions or concerns. Compliance is encouraged with any medications and follow up testing that is ordered. It is a privilege to be allowed the opportunity to participate in? your urological care.? Again, if you have any questions or concerns If you have any questions or concerns please do not hesitate to contact me. The office is [phone]. This note is constructed using voice recognition software. While every effort has been made to ensure accuracy swimming pool salesperson errors may have been included. Yours sincerely, BAMBI Hobson Coding Level of Care Code Est Pt Level 4 (25581) Diagnoses Nephrolithiasis N20.0 Recurrent urinary tract infection N39.0
--- OUTSIDE RECORDS SUMMARY | 2024-11-27 07:42 | XMS_ITS | Clinical Summary ---
Author Organization [facility] Address [address] [facility] [address] [place] [phone] Phone Care Team Providers Care Readiness Paraprofessional Name Role Phone Cecilia Terry MD Primary Care Provider [phone] Social History Tobacco Use Types Packs/Day Years [...] Devices Not on file Insurance Care Teams Readiness Paraprofessional Relationship Specialty Start Date End Date Cecilia Terry MD [address] [place] [address] PCP - General Internal Medicine 05/15/24 Additional Source Comments The information contained in this document represents components of the legal health record. It is not the complete legal health record.[facility]
--- OUTSIDE RECORDS SUMMARY | 2024-11-27 07:43 | XMS_ITS | Clinical Summary ---
Author Organization [facility] [address] [place] [address] [place] [phone] Phone Care Team Providers Care Stress Test Technician Name Role Phone Cecilia Terry MD [...] Chronic nonintractable headache 03/02/2022 Chiari I malformation ([facility] V24, [facility] V28) 09/29/2021 Overview (06/07/2024): No surgery will be recommended for this. GERD (gastroesophageal reflux disease) IBS (irritable bowel syndrome) 12/17/2020 Microscopic hematuria 06/17/2014 Overview (03/28/2024): Follows Dr. Freda Mcfadden areata 06/05/2010 Immunizations Name Administration Dates Next Due Hepatitis B (Bjogijm-I-Fvcgv , Recombivax HB-Adult) 19yo and older 12/17/2020 [...] reflux disease) SLE (systemic lupus erythematosus) ([facility] V24, [facility] V28) 07/20/2024 Family History Medical History [...] is recommended in 1 year. MAMMO LOCATION: [facility], [address] [place] [address], [address], . -------- FINAL REPORT -------- Dictated By: Elle Key Dictated Date: 06/18/2024 16:46 ET Assigned Physician: Elle Key Reviewed and Electronically Signed By: Elle Key Signed Date: 06/18/2024 16:49 ET Workstation ID: [id number] Transcribed By: Self Edit Transcribed Date: 06/18/2024 [...] is recommended in 1 year. MAMMO LOCATION: [facility], [address] [place], [place], [address], . -------- FINAL REPORT -------- Dictated By: Elle Key Dictated Date: 06/18/2024 16:46 ET Assigned Physician: Elle Key Reviewed and Electronically Signed By: Elle Key Signed Date: 06/18/2024 16:49 ET Workstation ID: [id number] Transcribed By: Self Edit Transcribed Date: 06/18/2024 16:46 ET Roberto Lee CN IMG BI PROCEDURES Final Result * (ABNORMAL) Lipid panel (01/21/2023) [facility] LDL/HDL Ratio 4 0 - 4 Triglycerides 103 0 - 150 mg/dL Cholesterol 218(A) 0 - 200 mg/dL HDL 62 >=40 mg/dL LDL Cholesterol 136(A) 0 - 100 mg/dL Blood Venous blood specimen / Unknown Result [facility] Provider LAB BLOOD ORDERABLES Nina l Result * Cervical Cancer Screening: HPV (01/06/2022) [facility] Cervical Cancer Screening: HPV Negative, Abstracted Result [facility] Provider HEALTH MAINTENANCE Final Result * Hepatitis C Screening (09/18/2014) [facility] Hepatitis C Screening Abstracted [facility] Provider HEALTH MAINTENANCE Final Result * HIV Screening (04/12/2011) [facility] HIV Screening Abstracted Result [facility] Provider HEALTH MAINTENANCE Final Result from Last 3 Months or Most Recently Relevant to Health Maintenance Insurance [facility] Care Teams Stress Test Technician Relationship Specialty Start Date End Date Cecilia Terry MD [address] [place] [address] PCP - General Internal Medicine 09/02/20
== END 2024-11-27 08:15 | disposition home or self-care (01) ==
LOC: HO.HUSH 07:40
PROVIDERS: PCP Internal Medicine; Visit Provider Nurse Practitioner Family
DX: N20.0 Calculus of kidney (principal); N39.0 Urinary tract infection, site not specified; Z13.9 Encounter for screening, unspecified
CPT/HCPCS: 99214

== ENCOUNTER → 2024-11-27 07:40 | Outpatient (BNVA) | payer OTHER, SELFPAY | PROVIDERS: PCP Internal Medicine; Visit Provider Nurse Practitioner Family | DX: N20.0 Calculus of kidney (principal) | CPT/HCPCS: 81003 ==

== ENCOUNTER 2025-02-21 12:48 | Outpatient (AMB) | payer OTHER, SELFPAY ==
--- NOTE | 2025-02-21 12:49 | A.OFFVIS_ITS ---
Vital Signs 02/21/25 12:50 Height 4 ft 11 in Weight 181 lb 7.047 oz BMI 36.6 BP 140/100 H Blood Pressure Location Rt brachial Position Sitting Pulse 84 Pulse Source Pulse Oximeter Pulse Oximetry (%) 100 Oxygen Delivery Method Room Air Intake Visit Reasons: 3 Months Intake Note: Patient presents today for JOSE G +ve/CM Accompanied by: Self / Same As Patient Allergies No Known Allergies (NKA) Allergy (Mild, Verified 02/21/25 12:50) NKA HPI HPI 3 Months: Details: she has episodes of burning pain in ribs and extremities. Feels like nerves are burning and that she is over worked. Resolves in 1-2 days. Ibuprofen 600mg q6h helps sometimes. In the past she has a a chest x-ray when she called her PCP during an episode, which was normal. Headaches have improved in frequency. She had intralesional steroid in her scalp with benefit. She has hair growth in the area where she had alopecia. [facility] Medical History Microscopic hematuria Alopecia areata GERD (gastroesophageal reflux disease) Endometriosis IBS (irritable bowel syndrome) Surgical History No pertinent past surgical history Family History Mother No problems noted. 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 Good respiratory effort Skin: No rash MSK: No tenderness of any joint. No synovitis. Normal range of motion of upper extremities and lower extremities. No tender points. Vital Signs: Last Vital Signs Pulse 84 02/21/25 12:50 BP 140/100 H 02/21/25 12:50 Pulse Ox 100 02/21/25 12:50 Oxygen Delivery Method Room Air 02/21/25 12:50 BMI result Body Mass Index 36.6 Assessment & Plan Assessment & Plan (1) Neuropathy: Comment: She has episodes of burning pain in her extremities lasting 1-2 days improved with ibuprofen PRN. I have ordered workup to rule out metabolic neuropathy. Can consider fibromyalgia contributing to her pain but it is a diagnosis of exclusion. Code(s): G62.9 - Polyneuropathy, unspecified Category: Medical Plan: Labs ordered (2) Systemic lupus erythematosus: Comment: 1:80 low titer positive with borderline positive double-stranded DNA Crithidia 01:20 (N<1:10), low C3 and C4 2023 with recurrent headaches since she was a child progressing to migraines, alopecia since childhood and recent worsening of hair loss. She has had recurrence of alopecia on her frontal scalp improved with intralesional steroid. She is experiencing episodes of pain in her body described as burning pain and the feeling that she is being over worked but has not had much activity. I am concerned she may have fibromyalgia. On exam she did not have tender points. We reviewed her labs from October, which did not reveal serological activity from lupus. Code(s): M32.9 - Systemic lupus erythematosus, unspecified Category: Medical Qualifiers: Systemic lupus erythematosus type: unspecified Systemic lupus erythematosus organ involvement: other Qualified Code(s): M32.19 - Other organ or system involvement in systemic lupus erythematosus Plan: Labs to assess lupus disease activity ordered Continue to follow up with Dermatology for alopecia management Return to clinic in 3-4 months or sooner if she is having a flare for physical exam (3) Joint pain: Code(s): M25.50 - Pain in unspecified joint Category: Medical Qualifiers: Joint pain location: unspecified Qualified Code(s): M25.50 - Pain in unspecified joint Plan: See above Plan See above Orders: Orders Vitamin B12 Today G62.9 - Polyneuropathy, unspecified Vitamin D 25-OH Total Today G62.9 - Polyneuropathy, unspecified TSH reflex Free T4 Today G62.9 - Polyneuropathy, unspecified Aspartate Amino Transferase Today M32.9 - Systemic lupus erythematosus, unspecified UA ClnCatch+Micro w/rflx Cult Today M32.9 - Systemic lupus erythematosus, unspecified Erythrocyte Sedimentation Rate Today G62.9 - Polyneuropathy, unspecified, Z79.899 - Other termite control servicer (current) drug therapy C Reactive Protein Today G62.9 - Polyneuropathy, unspecified, Z79.899 - Other retirement (current) drug therapy Hemoglobin A1c Today G62.9 - Polyneuropathy, unspecified Complete Blood Count Auto Diff Today M32.9 - Systemic lupus erythematosus, unspecified Protein Creatinine Ratio, Ur Today M32.9 - Systemic lupus erythematosus, unspecified Alanine Aminotransferase Today M32.9 - Systemic lupus erythematosus, unspecified Complement C3 Today M32.9 - Systemic lupus erythematosus, unspecified Complement C4 Today M32.9 - Systemic lupus erythematosus, unspecified Creatinine Today M32.9 - Systemic lupus erythematosus, unspecified Anti DNA DS Antibody Today M32.9 - Systemic lupus erythematosus, unspecified Coding Level of Care Code Est Pt Level 4 (39090) Complex EM visit Add On G2211 Diagnoses Neuropathy G62.9 Systemic lupus erythematosus with other organ involvement, unspecified SLE type M32.19 Systemic lupus erythematosus type: unspecified Systemic lupus erythematosus organ involvement: other Arthralgia, unspecified joint M25.50 Joint pain location: unspecified
[2025-02-21 12:50] VITALS: BP 140/100; PULSE 84; O2SAT 100; BMI 36.6
--- OUTSIDE RECORDS SUMMARY | 2025-02-21 15:41 | XMS_ITS | Clinical Summary ---
Author Organization [facility] Address [address] [place] [id number] Phone Care Team Providers Care Male Model Name Role Phone Cecilia Terry MD Primary Care Provider [phone] Social History Tobacco Use Types Packs/Day Years [...] YEARS) 01/18/2000 PAP SMEAR 2003 MAMMOGRAM 2022 INFLUENZA VACCINE (#1) 2024 COVID-19 VACCINE (1 - 2025-2 6 season) 2024 HEPATITIS A VACCINES Aged Out No long [...] Devices Not on file Insurance Care Teams Male Model Relationship Specialty Start Date End Date Cecilia Terry MD [address] [place] [address] PCP - General Internal Medicine 05/15/24 Additional Source Comments The information contained in this document represents components of the legal health record. It is not the complete legal health record.[facility]
== END 2025-02-21 13:20 | disposition home or self-care (01) ==
LOC: HO.RHES 12:48
PROVIDERS: PCP Internal Medicine; Visit Provider Internal Medicine Rheumatology
DX: G62.9 Polyneuropathy, unspecified (principal); M32.19 Other organ or system involvement in systemic lupus erythematosus; M25.50 Pain in unspecified joint
CPT/HCPCS: 99214; G2211

== ENCOUNTER 2025-02-21 12:48 | Outpatient (REF) | payer OTHER, SELFPAY ==
--- OUTSIDE RECORDS SUMMARY | 2025-02-21 16:29 | XMS_ITS | Clinical Summary ---
Author Organization [facility] [address] [place] [address] [place] [phone] Phone Care Team Providers Care Market Maker Name Role Phone Cecilia Terry MD Primary Care Provider [phone] Allergies No known active allergies Medications ibuprofen [...] Chronic nonintractable headache 03/02/2022 Chiari I malformation ([facility] V24, [facility] V28) 09/29/2021 Overview (06/07/2024): No surgery will be recommended for this. GERD (gastroesophageal reflux disease) IBS (irritable bowel syndrome) 12/17/2020 Microscopic hematuria 06/17/2014 Overview (03/28/2024): Follows Dr. Freda reyes 06/05/2010 Immunizations Immunization Administration Dates Next Due Hepatitis B (Bmrutzb-C-Kdggx , Recombivax HB-Adult) 19yo and older 12/17/2020 [...] (gastroesophageal reflux disease) SLE (systemic lupus erythematosus) ([facility] V24, [facility] V28) 07/20/2024 Family History Medical History Relation [...] of 2 - Risk 2-dose series) 2001 HPV Vaccines (1 - 3-dose SCDM series) 2009 Hepatitis B Vaccines (2 of 3 - 19+ 3-dose series) 01/14/2021 12/17/2020 Social Influencers of Health Screening 03/28/2022 Depression Screening 04/25/2024 DTaP,Tdap,and Td Vaccines (2 - Td or Tdap) 07/31/2024 07/31/2014 COVID-19 Vaccine (3 - season) 2024 09/27/2020, 08/29/2020 Influenza Vaccine (#1) 2024 05/02/2018 Breast Cancer Screening 06/16/2026 06/16/19, 06/23/2023, 06/09/2023, Additional history exists Cervical Cancer Screening: HPV 01/06/2027 01/06/2022 Cholesterol Screening (Lipid Panel) 01/22/2028 01/21/2023 RSV Immunization Adult Patients (1 - 1-dose 75+ series) 2057 HIV Screening Completed 04/12/2011 Hepatitis C Screening [...] on patient's age to complete this topic Pneumococcal Vaccine: Pediatrics (0 to 5 Years) and At-Risk Patients (6 to 49 Years) Aged Out No longer eligible based on [...] is recommended in 1 year. MAMMO LOCATION: [facility], [address] [place] [address], [id number], . -------- FINAL REPORT -------- Dictated By: Elle Key Dictated Date: 06/18/2024 16:46 ET Assigned Physician: Elle Key Reviewed and Electronically Signed By: Elle Key Signed Date: 06/18/2024 16:49 ET Workstation ID: [id number] Transcribed By: Self Edit Transcribed Date: 06/18/2024 [...] is recommended in 1 year. MAMMO LOCATION: [facility], [address] [place] [address], [id number], . -------- FINAL REPORT -------- Dictated By: Elle Key Dictated Date: 06/18/2024 16:46 ET Assigned Physician: Elle Key Reviewed and Electronically Signed By: Elle Key Signed Date: 06/18/2024 16:49 ET Workstation ID: [id number] Transcribed By: Self Edit Transcribed Date: 06/18/2024 16:46 ET Result [facility] Roberto Lee CNM IMG BI PROCEDURES Final Result * (ABNORMAL) Lipid panel (01/21/2023) [facility] LDL/HDL Ratio 4 0 - 4 Triglycerides 103 0 - 150 mg/dL Cholesterol 218(A) 0 - 200 mg/dL HDL 62 >=40 mg/dL LDL Cholesterol 136(A) 0 - 100 mg/dL Blood Venous blood specimen / Unknown Result [facility] Provider LAB BLOOD ORDERABLES Nina l Result * Cervical Cancer Screening: HPV (01/06/2022) [facility] Cervical Cancer Screening: HPV Negative, Abstracted [facility] Provider HEALTH MAINTENANCE Final Result * Hepatitis C Screening (09/18/2014) [facility] Hepatitis C Screening Abstracted [facility] Provider HEALTH MAINTENANCE Final Result * HIV Screening (04/12/2011) [facility] HIV Screening Abstracted [facility] Provider HEALTH MAINTENANCE Final Result from Last 3 Months or Most Recently Relevant to Health Maintenance Insurance [facility] [address] [place] [address] Care Teams Market Maker Relationship Specialty Start Date End Date Cecilia Terry MD [address] [place] [phone] PCP - General Internal Medicine 09/02/20
[2025-02-21 17:33] LABS: MANUAL DIFF FLAG NO
[2025-02-21 17:51] LABS: Hematocrit 38.8 % (37.0-47.0); Hemoglobin 12.7 g/dl (12.0-16.0); Imm Gran Abs Auto 0.03 X10*3/uL (0.00-0.03); Imm Gran Pct Auto 0.4 % (0.0-0.4); Lymphocytes Absolute Auto 2.0 X10*3/uL (1.2-4.9); Mean Corpuscular HGB Conc 32.7 g/dl (31.0-35.0); Mean Corpuscular Hemoglobin 29.6 pg (27.0-33.0); Mean Corpuscular Volume 90.4 fL (80.0-98.0); NRBC Abs Auto 0.000 X10*3/uL (0.0-0.012); NRBC Pct Auto 0.0 /100WBC (0.0-0.2); Platelet Count 278 X10*3/uL (160-400); Red Blood Count 4.29 X10*6/uL (4.20-5.50); White Blood Count 6.9 X10*3/uL (4.8-10.8)
[2025-02-21 18:15] LABS: Alanine Aminotransferase 19 U/L (0-31); Aspartate Amino Transferase 23 U/L (5-31); Estimated Glomerular Filt Rate > 60
[2025-02-21 18:25] LABS: Vitamin B12 433 pg/mL (200-900)
== END 2025-02-21 12:49 | disposition home or self-care (01) ==
LOC: HO.HKASLDS 12:48
PROVIDERS: PCP Internal Medicine; Visit Provider Internal Medicine Rheumatology
DX: M32.19 Other organ or system involvement in systemic lupus erythematosus (principal); G62.9 Polyneuropathy, unspecified; R07.89 Other chest pain; M79.621 Pain in right upper arm; M79.622 Pain in left upper arm; M79.604 Pain in right leg; M79.605 Pain in left leg; Z79.899 Other long term (current) drug therapy
CPT/HCPCS: 36415; 82306; 82565; 82607; 83036; 84443; 84450; 84460; 85025; 85652; 86140; 86160

== ENCOUNTER 2025-03-05 07:39 | Outpatient (AMB) | payer OTHER, SELFPAY ==
--- OUTSIDE RECORDS SUMMARY | 2025-03-05 07:42 | XMS_ITS | Clinical Summary ---
Author Organization [facility] [address] [place] [address] [place] [phone] Phone Care Team Providers Care Viscose Cellar Worker Name Role Phone Cecilia Terry MD Primary Care Provider [phone] Allergies No known active allergies Medications ibuprofen [...] Chronic nonintractable headache 03/02/2022 Chiari I malformation ([facility] V24, [facility] V28) 09/29/2021 Overview (06/07/2024): No surgery will be recommended for this. GERD (gastroesophageal reflux disease) IBS (irritable bowel syndrome) 12/17/2020 Microscopic hematuria 06/17/2014 Overview (03/28/2024): Follows Dr. Freda reyes 06/05/2010 Immunizations Immunization Administration Dates Next Due Hepatitis B (Jvhxbmg-L-Ftvpi , Recombivax HB-Adult) 19yo and older 12/17/2020 [...] (gastroesophageal reflux disease) SLE (systemic lupus erythematosus) ([facility] V24, [facility] V28) 07/20/2024 Family History Medical History Relation [...] is recommended in 1 year. MAMMO LOCATION: [facility], [address] [place] [address], [address], . -------- FINAL REPORT -------- Dictated By: Elle Key Dictated Date: 06/18/2024 16:46 ET Assigned Physician: Elle Key Reviewed and Electronically Signed By: Elle Key Signed Date: 06/18/2024 16:49 ET Workstation ID: [id number] Transcribed By: Self Edit Transcribed Date: 06/18/2024 [...] is recommended in 1 year. MAMMO LOCATION: [facility], [address] [place] [address], [phone], . -------- FINAL REPORT -------- Dictated By: Elle Key Dictated Date: 06/18/2024 16:46 ET Assigned Physician: Elle Key Reviewed and Electronically Signed By: Elle Key Signed Date: 06/18/2024 16:49 ET Workstation ID: [id number] Transcribed By: Self Edit Transcribed Date: 06/18/2024 16:46 ET Result [facility] Roberto Lee CNM IMG BI PROCEDURES Final Result * (ABNORMAL) Lipid panel (01/21/2023) [facility] LDL/HDL Ratio 4 0 - 4 Triglycerides 103 0 - 150 mg/dL Cholesterol 218(A) 0 - 200 mg/dL HDL 62 >=40 mg/dL LDL Cholesterol 136(A) 0 - 100 mg/dL Blood Venous blood specimen / Unknown Result [facility] Provider LAB BLOOD ORDERABLES Nina l Result * Cervical Cancer Screening: HPV (01/06/2022) [facility] Cervical Cancer Screening: HPV Negative, Abstracted [facility] Provider HEALTH MAINTENANCE Final Result * Hepatitis C Screening (09/18/2014) [facility] Hepatitis C Screening Abstracted [facility] Provider HEALTH MAINTENANCE Final Result * HIV Screening (04/12/2011) [facility] HIV Screening Abstracted [facility] Provider HEALTH MAINTENANCE Final Result from Last 3 Months or Most Recently Relevant to Health Maintenance Insurance [facility] [address] [place] [address] Care Teams Viscose Cellar Worker Relationship Specialty Start Date End Date Cecilia Terry MD [address] [place] [address] PCP - General Internal Medicine 09/02/20
--- OUTSIDE RECORDS SUMMARY | 2025-03-05 07:42 | XMS_ITS | Clinical Summary ---
Author Organization [facility] Address [address] [place] [phone] Phone Care Team Providers Care Chef Teacher Name Role Phone Cecilia Terry MD Primary Care Provider [phone] Social History Tobacco Use Types Packs/Day Years [...] patient's age to complete this topic IPV VACCINES Aged Out No longer eligi ble [...] Devices Not on file Insurance Care Teams Chef Teacher Relationship Specialty Start Date End Date Cecilia Terry MD [address] [place] [address] PCP - General Internal Medicine 05/15/24 Additional Source Comments The information contained in this document represents components of the legal health record. It is not the complete legal health record.[facility]
--- NOTE | 2025-03-05 07:43 | MHC.OFFVIS ---
Intake Visit Reasons: 3m/Litholink Intake Note: Patient is present for 3M/LITHOLINK Urology Medication:VITAMIN B6 Antibiotic Allergy:NONE Blood Thinner:NONE Agricultural Produce Washer Required: No Allergies No Known Allergies (NKA) Allergy (Mild, Verified 03/05/25 07:45) NKA HPI Comments Details: Dhruv is a very pleasant 45-year-old female patient of Dr. Terry. She has a past medical history of alopecia areata, microscopic hematuria, GERD, endometriosis, and IBS. She presents to the office today for follow-up of her nephrolithiasis and recurrent urinary tract infections. In discussion with the patient today she reports to be doing and feeling well. She denies having had any urinary tract infections and or UTI like symptoms since her last office visit here. In office urinalysis results reviewed with the patient today 3+ leukocytes negative nitrates 2+ microscopic hematuria. She does report she is currently experiencing intermittent abdominal cramping however believes this is related to her cycle in his currently ovulating which is her typical symptoms of ovulation. We did discuss sending urine out for urine culture as well as urine cytology. She is agreeable. Most recent 24 hour Litholink results reviewed with the patient today. We discussed low urine volume, borderline hyperoxaluria, and high urine pH. We did discussed the importance of increasing urine volume between 2-2.5 L daily. We also discussed dietary modifications. We discussed potential causes of high oxalate or low calcium diet. Previous workup has included a retroperitoneal ultrasound 11/16 bilateral kidneys are normal in echotexture and thickness. There are no renal masses or hydronephrosis noted bilaterally. There is a 3 mm nonobstructing calculus at the upper pole of the right kidney. And a 4 mm nonobstructing calculus in the interpolar region of the left kidney. The urinary bladder is unremarkable. We did discussed potential causes of nephrolithiasis as well as leukocytes in the urine. Patient with a previous history of 3+ leukocytes in the urine however culture noted no growth and patient is not experiencing any UTI like symptoms. She does endorse to minimal fluid intake. We did discussed the importance in doing so. We did discussed the importance of adequate hydration relation to nephrolithiasis. She denies incontinence, nocturia, visible/gross hematuria, foul smelling urine, changes to urinary stream, flank pain, fever, and or chills. All questions were answered. She otherwise offers no other issues or concerns at this time. [facility] Medical History Microscopic hematuria Alopecia areata GERD (gastroesophageal reflux disease) Endometriosis IBS (irritable bowel syndrome) Surgical History No pertinent past surgical history Family History Mother No problems noted. 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 Review of Systems Const All systems reviewed & are unremarkable except as noted in HPI and below Physical Exam Const General: cooperative, healthy appearing, comfortable, no acute distress, well developed, alert and awake Orientation/consciousness: patient oriented x3 Limitations: no limitations HEENT Head: Yes normal to inspection, Yes normocephalic and Yes atraumatic Ears: hearing grossly normal bilaterally Eyes General: appearance normal, both eyes and all related structures Neck Neck: Yes normal visual inspection and Yes trachea midline Chest Chest palpation & inspection: normal inspection of the chest Resp Effort & Inspection: normal respiratory effort and able to speak in complete sentences Cardio Rate: regular rate GI Inspection: Yes normal to inspection General: Yes no CVA tenderness Back/Spine/Pelvis Back: no CVA tenderness Skin General skin exam: no rashes or lesions noted Neuro General: patient oriented x3 Extrem General: Yes normal to inspection Psych Appearance: grossly normal and well kempt Mental Status: mental status grossly normal Speech and movement: Normal speech and movement present and Clear speech present Affect: normal affect Attitude: cooperative Thought process: Normal thought process present Thought content: Normal thought content present Insight: Fair insight present (Psych) Judgement: Fair judgement present (Psych) Results AMB Urinalysis, Automated UA Leukoctes 500 Donny/uL Last Edit by BEAU Green on 03/05/25 07:59 UA Nitrite Negative Last Edit by BEAU Green on 03/05/25 07:59 UA Urobilinogen 0.2 mg/dL Last Edit by BEAU Green on 03/05/25 07:59 UA Protein 15 mg/dL Last Edit by BEAU Green on 03/05/25 07:59 UA pH 6.5 Last Edit by Colby Mercer CCM on 03/05/25 07:59 UA Blood 80 Preston/uL Last Edit by BEAU Green on 03/05/25 07:59 UA Specific [place] 1.015 Last Edit by BEAU Green on 03/05/25 07:59 UA Ketone Negative Last Edit by BEAU Green on 03/05/25 07:59 UA Bilirubin 0 mg/dL Last Edit by BEAU Green on 03/05/25 07:59 UA Glucose 0 mg/dL Last Edit by Colby Mercer [facility] on 03/05/25 07:59 Assessment & Plan Assessment & Plan (1) Microscopic hematuria: Code(s): R31.29 - Other microscopic hematuria Category: Medical (2) Nephrolithiasis: Code(s): N20.0 - Calculus of kidney Category: Medical Plan In office urinalysis results reviewed with the patient today; as noted above; will send for urine cytology as well as urine culture. Patient currently denies any UTI like symptoms. She reports be happy with current voiding parameters. Most recent 24 hour urine/Litholink results reviewed with the patient today; as noted above. We did discussed at length the importance of adequate hydration relation to nephrolithiasis as well as overall health and well-being. We discussed adding 1 oz of lemon juice to water daily. All questions were answered. Will continue with surveillance monitoring at this time. Will obtain KUB and ultrasound in 3-6 months. Follow-up in 3-6 months with imaging; or sooner with any issues, concerns, and or questions. Orders: Orders US renal BI 3 Months N20.0 - Calculus of kidney Urine Cytology Today R31.29 - Other microscopic hematuria AMB Urinalysis Automated Today Z13.9 - Encounter for screening, unspecified Urine Culture Today N39.0 - Urinary tract infection, site not specified XR KUB 3 Months N20.0 - Calculus of kidney Patient Instructions: The patient had an opportunity to ask questions regarding the treatment plan. All questions were answered. Physical exam, labs, and imaging were discussed and reviewed in detail. As well as risks, benefits, and discussion of treatment choices. No major barriers to understanding were identified. The patient expressed understanding and agreement with the above treatment plan. The patient was made aware they should contact our office by phone for worsening of their current condition, the appearance of new symptoms, or with any questions or concerns. Compliance is encouraged with any medications and follow up testing that is ordered. It is a privilege to be allowed the opportunity to participate in? your urological care.? Again, if you have any questions or concerns If you have any questions or concerns please do not hesitate to contact me. The office is [phone]. This note is constructed using voice recognition software. While every effort has been made to ensure accuracy sea captain errors may have been included. Yours sincerely, BAMBI Hobson Coding Level of Care Code Est Pt Level 3 (05614) Diagnoses Microscopic hematuria R31.29 Nephrolithiasis N20.0
== END 2025-03-05 08:12 | disposition home or self-care (01) ==
LOC: HO.HUSH 07:39
PROVIDERS: PCP Internal Medicine; Visit Provider Nurse Practitioner Family
DX: R31.29 Other microscopic hematuria (principal); N20.0 Calculus of kidney; Z13.9 Encounter for screening, unspecified
CPT/HCPCS: 99213

== ENCOUNTER 2025-03-05 07:39 | Outpatient (REF) | payer OTHER, SELFPAY | END 2025-03-05 07:40 | disposition home or self-care (01) | LOC: HO.LAB 07:39 | PROVIDERS: PCP Internal Medicine; Visit Provider Nurse Practitioner Family | DX: N20.0 Calculus of kidney (principal); R31.29 Other microscopic hematuria; N39.0 Urinary tract infection, site not specified; Z13.89 Encounter for screening for other disorder | CPT/HCPCS: 81003; 87086; 88112 ==

== ENCOUNTER 2025-03-06 08:52 | Outpatient (AMB) | payer OTHER, SELFPAY ==
[2025-03-06 08:55] VITALS: BP 120/68; PULSE 78; O2SAT 96; BMI 36.4
--- NOTE | 2025-03-06 08:55 | A.OFFVIS_ITS ---
Vital Signs 03/06/25 08:55 Height 4 ft 11 in Weight 180 lb BMI 36.4 BP 120/68 Blood Pressure Location Rt brachial Position Sitting Pulse 78 Pulse Source Pulse Oximeter Pulse Oximetry (%) 96 Oxygen Delivery Method Room Air Intake Visit Reasons: f/u appt (LVM) Bark Peeler Required: No Accompanied by: Self / Same As Patient Allergies No Known Allergies (NKA) Allergy (Mild, Verified 03/06/25 09:03) NKA Medication List - Last Reconciled 03/06/25 by LES Jerome cholecalciferol (vitamin D3) 1,250 mcg PO QWEEK 12 weeks ibuprofen 600 mg PO Q6H PRN magnesium oxide 400 mg PO BEDTIME 90 days naproxen 375 mg PO BID 10 days naratriptan take 1/2 - 1 tab at onset of headache; if no relief may repeat 1 tab after at least 4 hrs; max = 2 tabs/24 hrs orally PRN; 30 days nitrofurantoin macrocrystal 50 mg PO ONCE 90 days nitrofurantoin macrocrystal 100 mg PO BID 7 days pantoprazole 40 mg PO DAILY pyridoxine (vitamin B6) 100 mg PO DAILY 90 days riboflavin (vitamin B2) 400 mg PO DAILY 90 days rimegepant (Nurtec ODT) 75 mg PO ONCE PRN 30 days MDD 1 tab sumatriptan succinate mg PO HPI Comments Details: 45-yr-old female presents for migraine without aura. She reports she continues to have intermittent BLE very quick zapping pains and leg cramps. She also reports ongoing episodes of deep burning pains within her bilateral lower rib cartiledge and BLE. Which is a/w feeling activated, hwoever she does not feel anxious at the time. Sometimes her right lower leg feels heavier when walking. She can wake up with her hands feeling numb. 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 She states her headaches have been better. Now occurring 1-2 days per week, and are more manageable. The above parestehsias do not occur specifically with the headaches. Uses Ibuprofen for milder headaches, and Nurtec and Naratriptan for a migraine attack. She continues to have some brain fog and STM forgetfulness. She denies any new peripheral vision cahnges, vision changes, diplopia, nipple discharge, shoe/clothing size changes. 10/19/24, HPI: Patient requesting FMLA paperwork be completed for intermittent absences from work due to severe migraine attacks, up to 1 episode per week lasting 3 dose, as well as for follow-up Neurology, Rheumatology, Endocrinology appointments. Patient also requests a refill of the naratriptan. Patient states that when she takes the naratriptan with Nurtec is more efficacious than when taking either alone. 08/02/2024, previous HPI: She is scheduled to see rheumatology in October. She is still not taking Plaquenil She also has been having days of skin burning, internal burning, internally activated. Her menstrual cycle has been a bit more irregular- spotting more. She has a YOGA COORDINATOR appt coming up. Her HST did not show sleep apnea. She does endorse lifelong frequent nocturnal arousals and mild intermittent States her RLS s/s are mild. She had endocrinology consult- was advised to see [facility] for further eval however this is outside of her insurance's network. Pt denies diplopia, vision changes. Pt reports her migraines are about the same as before. She may not have a migraine for 2 weeks, but then out of the blue she will have severe debilitating migraine attacks. She has had to miss work last for the more severe migraine. She has started prn Nurtec- is effective but only receives 8 tabs per month. Uses naratriptan as well- effect varies. Baseline headache characteristics- Varies, Mod-Severe, throbbing, stabbing starting in bilateral lower occipital region and moves into bilateral temples/frontal region and then the whole head a/w photophobia, phonophobia, nausea, vomiting if severe, not right in space dizziness, brain fog, fatigue, worsening left facial paresthesias, speech slurring, activity intolerance. 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 F/u pituitary studies lab work was WNL. 10/10/2023, HST showed AHI < 1 hr, average SpO2 93%, w/ O2 bulmaro 78% (however SpO2 < 88% was recorded at 0 min). Previous work-up: 05/02/22 06/10/23 07/27/23 12:52 09:52 07:36 C-Reactive Protein 0.13 C-React Prot High Sens 2.4 Vitamin B12 464 Folate 8.7 TSH 1.20 Free T4 0.97 FSH 2.3 Luteinizing Hormone 2.3 Prolactin 7.9 Beta HCG, Quant < 2 Rheumatoid Factor < 13.0 JOSE G Screen POSITIVE A JOSE G Titer 1:80 H JOSE G Titer 2 1:80 H JOSE G Pattern A JOSE G Pattern 2 A 07/06/23, MR/MR head/brain wo/w con IMPRESSION: There is an expansile partially empty sella. 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 04/29/2022, Lumbar Puncture: OP-19 cmH2O w/ normal CSF studies. COUNTS INCLUDE 234 BEDS AT THE [facility] Medical History (Updated 03/06/25 @ 10:12 by LES Jerome) Microscopic hematuria Alopecia areata GERD (gastroesophageal reflux disease) Endometriosis IBS (irritable bowel syndrome) Surgical History No pertinent past surgical history Family History Mother No problems noted. 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 Right antecubital- negative tinnel and compression test LUE antecubital- tinnel and compression test, elicited left lateral antecubital discomfort General: patient oriented x3 Cranial nerves: Yes CN's II-XII intact bilaterally Cognition (Neuro): normal cognition Motor exam (neuro): 5/5 motor strength present throughout Deep tendon reflexes (DTR's): Right triceps reflex intensity grade: 2+, Left triceps reflex intensity grade: 2+, Rt Biceps (C5, C6): 2+, Left biceps reflex intensity grade: 2+, Right brachioradialis reflex intensity grade: 2+, Left brachioradialis reflex intensity grade: 2+, Right patellar reflex intensity grade: 2+, Left patellar reflex intensity grade: 3+, Right ankle reflex intensity grade: 2+ and Left ankle reflex intensity grade: 2+ Psych Appearance: grossly normal Mental Status: mental status grossly normal Affect: normal affect Attitude: cooperative Assessment & Plan Assessment & Plan (1) Migraine: Comment: new onset headache w/ migrainous s/s, as well as worsening left facial paresthesias and speech difficulties- ? IIH, ? migraine w/ aura, ? headache attack exacerbating underlying trigeminal neuropathy process Code(s): G43.909 - Migraine, unspecified, not intractable, without status migrainosus Category: Medical Qualifiers: Intractability: not intractable Migraine type: unspecified Status migrainosus presence: without status migrainosus Qualified Code(s): G43.909 - Migraine, unspecified, not intractable, without status migrainosus (2) Pituitary cyst: Code(s): E23.6 - Other disorders of pituitary gland Category: Medical (3) Facial paresthesia: Comment: left temporal/jaw region. Not a/w facial pain, bruxism, or painful chewing. ? trigeminal neuropathic process. 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 Follow-up with endocrinology as scheduled Consider follow-up brain MRI in 1-2 years. For paresthesia: Check BLE and BLE EMG/NCS Check labs for common underlying etiologies Follow-up with rheumatology as scheduled for management of her SLE. Previous HST- no evidence of sleep apnea. Could consider in-lab PSG to assess for PLMS, however pt is not bothered by her sleep or RLS s/s at this time. For overall headache management: Discussed importance of good self-care, including but not limited to maintaining a healthy diet, adequate fluid intake, adequate sleep, and engaging in regular physical activity. ? For acute headache treatment: Continue Ibuprofen 400-600mg prn. May continue naratriptan 2.5mg as needed As naratriptan is not always effective: * Continue Rimegepant ODT (Nurtec ODT) 75mg, 1 tab every other day. Max of 1 tabs (75mg) per 24 hours. * May adjunct with naratriptan or OTC Tylenol 650mg q 4 hours, Ibuprofen 600mg q 6 hours, or Naproxen 440mg q 12 hrs prn. Previous acute migraine medication trials: Fioricet- ineffective. Sumatriptan 100mg- lost efficacy. Acute migraine medication contraindications: None at this time ? For headache prevention medication: Continue Riboflavin 400mg qam Continue Magnesium 400mg qhs Previous migraine prevention medication trials: Topiramate- caused mood changes, taste changes, may have contributed to kidney stone development in September 2023. Migraine prevention medication contraindications: Topiramate- d/t kidney stones. Will follow-up upon review of above and patient to follow-up in clinic in 6 months or sooner prn. Orders: Orders Homocysteine 03/06/25 D64.9 - Anemia, unspecified, G62.9 - Polyneuropathy, unspecified, M32.19 - Other organ or system involvement in systemic lupus erythematosus IRON PROFILE 03/06/25 D64.9 - Anemia, unspecified, M32.19 - Other organ or system involvement in systemic lupus erythematosus NE electromyogram (EMG) 03/06/25 M32.19 - Other organ or system involvement in systemic lupus erythematosus, M62.838 - Other muscle spasm, R20.2 - Paresthesia of skin NE nerve conduction velocity 03/06/25 M32.19 - Other organ or system involvement in systemic lupus erythematosus, M62.838 - Other muscle spasm, R20.2 - Paresthesia of skin Vitamin B6 03/06/25 D64.9 - Anemia, unspecified, M32.19 - Other organ or system involvement in systemic lupus erythematosus, N20.0 - Calculus of kidney Methylmalonic Acid 03/06/25 D64.9 - Anemia, unspecified, M32.19 - Other organ or system involvement in systemic lupus erythematosus Magnesium 03/06/25 D64.9 - Anemia, unspecified, M32.19 - Other organ or system involvement in systemic lupus erythematosus, M62.838 - Other muscle spasm Lyme IgG/IgM w/reflex to WB 03/06/25 G62.9 - Polyneuropathy, unspecified, M32.19 - Other organ or system involvement in systemic lupus erythematosus, M62.838 - Other muscle spasm Creatine Kinase Total 03/06/25 G62.9 - Polyneuropathy, unspecified, M32.19 - Other organ or system involvement in systemic lupus erythematosus, M62.838 - Other muscle spasm Ferritin 03/06/25 D64.9 - Anemia, unspecified, M32.19 - Other organ or system involvement in systemic lupus erythematosus Coding Level of Care Code Est Pt Level 4 (01295) Diagnoses Migraine without status migrainosus, not intractable, unspecified migraine type G43.909 Intractability: not intractable Migraine type: unspecified Status migrainosus presence: without status migrainosus Pituitary cyst E23.6 Facial paresthesia R20.2 Muscle spasms of both lower extremities M62.838
--- OUTSIDE RECORDS SUMMARY | 2025-03-06 09:20 | XMS_ITS | Clinical Summary ---
Author Organization [facility] Address [address] [place] [id number] Phone Care Team Providers Care Button Facing Machine Operator Name Role Phone Cecilia Terry MD Primary Care Provider [phone] Social History Tobacco Use Types Packs/Day Years [...] Devices Not on file Insurance Care Teams Button Facing Machine Operator Relationship Specialty Start Date End Date Cecilia Terry MD [address] [place] [address] PCP - General Internal Medicine 05/15/24 Additional Source Comments The information contained in this document represents components of the legal health record. It is not the complete legal health record.[facility]
--- OUTSIDE RECORDS SUMMARY | 2025-03-06 09:20 | XMS_ITS | Clinical Summary ---
Author Organization [facility] [address] [place] [address] [place] [phone] Phone Care Team Providers Care Laboratory Phlebotomist Name Role Phone Cecilia Terry MD Primary Care Provider [phone] Allergies No known active allergies Medications ibuprofen [...] 03/02/2022 Chiari I malformation ([facility] V24, [facility] V28) 09/29/2021 Overview (06/07/2024): No surgery will be recommended for this. GERD (gastroesophageal reflux disease) IBS (irritable bowel syndrome) 12/17/2020 Microscopic hematuria 06/17/2014 Overview (03/28/2024): Follows Dr. Freda reyes 06/05/2010 Immunizations Immunization Administration Dates Next Due Hepatitis B (Cuptjbm-D-Bedjj , Recombivax HB-Adult) 19yo and older 12/17/2020 [...] SLE (systemic lupus erythematosus) ([facility] V24, [facility] V28) 07/20/2024 Family History Medical History Relation [...] is recommended in 1 year. MAMMO LOCATION: [facility], [address] [place] [address], [id number], . -------- FINAL REPORT -------- Dictated By: Elle Key Dictated Date: 06/18/2024 16:46 ET Assigned Physician: Elle Key Reviewed and Electronically Signed By: Elle Key Signed Date: 06/18/2024 16:49 ET Workstation ID: [id number] Transcribed By: Self Edit Transcribed Date: 06/18/2024 [...] is recommended in 1 year. MAMMO LOCATION: [facility], [address] [place] [address], [address], . -------- FINAL REPORT -------- Dictated By: Elle Key Dictated Date: 06/18/2024 16:46 ET Assigned Physician: Elle Key Reviewed and Electronically Signed By: Elle Key Signed Date: 06/18/2024 16:49 ET Workstation ID: [id number] Transcribed By: Self Edit Transcribed Date: 06/18/2024 16:46 ET Result [facility] Roberto Lee CNM IMG BI PROCEDURES Final Result * (ABNORMAL) Lipid panel (01/21/2023) [facility] LDL/HDL Ratio 4 0 - 4 Triglycerides 103 0 - 150 mg/dL Cholesterol 218(A) 0 - 200 mg/dL HDL 62 >=40 mg/dL LDL Cholesterol 136(A) 0 - 100 mg/dL Blood Venous blood specimen / Unknown Result [facility] Provider LAB BLOOD ORDERABLES Nina l Result * Cervical Cancer Screening: HPV (01/06/2022) [facility] Cervical Cancer Screening: HPV Negative, Abstracted [facility] Provider HEALTH MAINTENANCE Final Result * Hepatitis C Screening (09/18/2014) [facility] Hepatitis C Screening Abstracted [facility] Provider HEALTH MAINTENANCE Final Result * HIV Screening (04/12/2011) [facility] HIV Screening Abstracted [facility] Provider HEALTH MAINTENANCE Final Result from Last 3 Months or Most Recently Relevant to Health Maintenance Insurance [facility] [address] [place] [address] Care Teams Laboratory Phlebotomist Relationship Specialty Start Date End Date Cecilia Terry MD [address] [place] [phone] PCP - General Internal Medicine 09/02/20
== END 2025-03-06 10:10 | disposition home or self-care (01) ==
LOC: HO.HSMS 08:53
PROVIDERS: PCP Internal Medicine; Visit Provider Nurse Practitioner Family
DX: G43.909 Migraine, unspecified, not intractable, without status migrainosus (principal); E23.6 Other disorders of pituitary gland; R20.2 Paresthesia of skin; M62.838 Other muscle spasm
CPT/HCPCS: 99214

== ENCOUNTER 2025-04-11 08:24 | Outpatient (REF) | payer OTHER, SELFPAY ==
--- OUTSIDE RECORDS SUMMARY | 2025-04-11 08:39 | XMS_ITS | Clinical Summary ---
Author Organization [facility] [address] [place] [address] [place] [phone] Phone Care Team Providers Care Tool Dispatcher Name Role Phone Cecilia Terry MD Primary Care Provider [phone] Allergies No known active allergies Medications ibuprofen [...] Noted Date Diagnosed Date SLE (systemic lupus erythematosus) 07/20/2024 Endometriosis 03/28/2024 Vitamin D deficiency 12/30/2022 Chronic nonintractable headache 03/02/2022 Chiari I malformation 09/29/2021 Overview (06/07/2024): No surgery will be recommended for this. GERD (gastroesophageal reflux disease) 1 IBS (irritable bowel syndrome) 12/17/2020 Microscopic hematuria 06/17/2014 Overview (03/28/2024): Follows Dr. Freda Mcfadden areata 06/05/2010 Immunizations Immunization Administration Dates Next Due Hepatitis B ([place]-P-[place] , Recombivax HB-Adult) 19yo and older 12/17/2020 [...] (gastroesophageal reflux disease) SLE (systemic lupus erythematosus) ([facility] V24, [facility] V28) 07/20/2024 Family History Medical [...] Ectopic Multiple Livin g Live Births 1 04 25 1 Date Outcome GA Total Labor Labor/2nd/3rd [...] Health Maintenance Due Date Last Done Comments HPV Vaccines (1 - 3-dose SCDM series) 2009 Hepatitis B Vaccines (2 of 3 - 19+ 3-dose series) 01/14/2021 12/17/2020 Social Influencers of Health Screening 03/28/2022 Depression Screening 04/25/2024 DTaP,Tdap,and Td Vaccines (2 - Td or Tdap) 07/31/2024 07/31/2014 COVID-19 Vaccine (3 - 2024- season) 2024 09/27/2020, 08/29/2020 Influenza Vaccine (#1) [...] on patient's age to complete this topic Hepatitis A Vaccines Aged Out No long er eligible based [...] is recommended in 1 year. MAMMO LOCATION: [facility], [address] [place] [address], [id number], . -------- FINAL REPORT -------- Dictated By: Elle Key Dictated Date: 06/18/2024 16:46 ET Assigned Physician: Elle Key Reviewed and Electronically Signed By: Elle Key Signed Date: 06/18/2024 16:49 ET Workstation ID: [id number] Transcribed By: Self Edit Transcribed Date: 06/18/2024 [...] is recommended in 1 year. MAMMO LOCATION: [facility], [address] [place] [address], [phone], . -------- FINAL REPORT -------- Dictated By: Elle Key Dictated Date: 06/18/2024 16:46 ET Assigned Physician: Elle Key Reviewed and Electronically Signed By: Elle Key Signed Date: 06/18/2024 16:49 ET Workstation ID: [id number] Transcribed By: Self Edit Transcribed Date: 06/18/2024 16:46 ET Roberto Lee CN IMG BI PROCEDURES Final Result * (ABNORMAL) Lipid panel (01/21/2023) [facility] LDL/HDL Ratio 4 0 - 4 Triglycerides 103 0 - 150 mg/dL Cholesterol 218(A) 0 - 200 mg/dL HDL 62 >=40 mg/dL LDL Cholesterol 136(A) 0 - 100 mg/dL Blood Venous blood specimen / Unknown Result [facility] Provider LAB BLOOD ORDERABLES Nina l Result * Cervical Cancer Screening: HPV (01/06/2022) [facility] Cervical Cancer Screening: HPV Negative, Abstracted Result [facility] Provider HEALTH MAINTENANCE Final Result * Hepatitis C Screening (09/18/2014) [facility] Hepatitis C Screening Abstracted [facility] Provider HEALTH MAINTENANCE Final Result * HIV Screening (04/12/2011) [facility] HIV Screening Abstracted Result [facility] Historical Provider HEALTH MAINTENANCE Final Result from Last 3 Months or Most Recently Relevant to Health Maintenance Insurance [facility] Care Teams Tool Dispatcher Relationship Specialty Start Date End Date Cecilia Terry MD [address] [place] [phone] PCP - General Internal Medicine 09/02/20
--- NOTE | 2025-04-11 08:47 | EMG_ITS ---
Chief complaint:?Muscle spasms of both lower extremities and paresthesia of both upper extremities Referred by:?Pinky Tejada DEPUTY GENERAL COUNSEL Procedure done: Bilateral upper and bilateral lower extremities NCS/EMG Bilateral median, ulnar, peroneal, and tibial motor studies were performed with F responses and tibial H reflexes. Bilateral median mixed sensory, radial sensory, 2nd and 5th digit ortho sensory, median and lateral antecubital brachial sensory, superficial peroneal and sural sensory studies were performed and paraspinal were tested in all 4 areas. Findings: Motor distal latencies, amplitudes, and conduction velocities were with a normal range with normal late responses. Sensory studies also did not reveal any significant abnormality. Needle examination was normal. Impression: This details study of all 4 extremities did not reveal any significant abnormality to suggest focal or generalized neuropathy or radiculopathy. Coding:? [id number] 4 extremities [facility]
[2025-04-11 09:56] LABS: Iron 109 mcg/dL (30-160); Magnesium 1.8 mg/dL (1.6-2.6); Percent Iron Saturation 36 % (15-50); Total Iron Binding Capacity 299 mcg/dL (228-428); Unsaturated Iron Binding 190 ug/dL
[2025-04-11 10:13] LABS: Ferritin 38 ng/mL (10-250)
[2025-04-12 05:19] LABS: Lyme Abs Screen <0.90 index
== END 2025-04-11 08:25 | disposition home or self-care (01) ==
LOC: HO.NEURO 08:24
PROVIDERS: PCP Internal Medicine; Visit Provider Nurse Practitioner Family
DX: M32.19 Other organ or system involvement in systemic lupus erythematosus (principal); D64.9 Anemia, unspecified; G62.9 Polyneuropathy, unspecified; N20.0 Calculus of kidney; R20.2 Paresthesia of skin
CPT/HCPCS: 36415; 82550; 82728; 83090; 83540; 83735; 83921; 84207; 86617; 86618; 95886; 95913

== ENCOUNTER → 2025-04-11 08:47 | Outpatient (BNV) | payer OTHER, SELFPAY | PROVIDERS: PCP Internal Medicine; Visit Provider Psychiatry & Neurology Neurology | DX: R20.2 Paresthesia of skin (principal) | CPT/HCPCS: 95886; 95913 ==